=== PATIENT | female | born 1935 | race Caucasian/White ===

== ENCOUNTER 2016-07-29 10:16 | Observation (INO) ==
--- NOTE | 2016-07-29 11:04 | Emergency Department Note ---
Disposition Clinical Impression: Hypothermia Qualifiers: Encounter type: initial encounter Qualified Code(s): T68.XXXA - Hypothermia, initial encounter Altered mental status Qualifiers: Altered mental status type: disorientation Qualified Code(s): R41.0 - Disorientation, unspecified Disposition: Admitted As Inpatient Condition: Fair Time of Disposition: 13:30 Altered Mental Status HPI - General Chief Complaint: ED Altered Mental Status Stated Complaint: "UTI" Time Seen by Provider: 07/29/16 10:55 Source: patient Limitations: no limitations Nursing Notes Reviewed: Yes Vital Signs Reviewed: Yes - History of Present Illness HPI Narrative: Patient presents to the emergency department with chief complaint of altered mental status. She is accompanied by her niece. Patient states the symptoms started yesterday. She was seeing spots. She also saw Cowboys her bedroom last night. He states witnesses happen in the past she has had urinary tract infections. Patient lives by herself. She denies fever. She denies cough or congestion. She denies any recent head trauma. - Related Data Home Medications Medication Instructions Recorded Confirmed Aspirin 81 mg PO DAILY 02/05/15 06/11/16 Hydrochlorothiazide 12.5 mg PO DAILY 02/05/15 06/11/16 Lisinopril [Zestril] 10 mg PO DAILY 02/05/15 06/11/16 Multivitamin [Flintstones] 1 tab PO DAILY 02/05/15 06/11/16 [place] Oil/[place]-3 Fatty Acids 1 cap PO DAILY 02/05/15 06/11/16 [Fish Oil 500 mg Softgel] Previous Rx's Medication Instructions Recorded Acetaminophen [Tylenol] 650 mg PO Q6HR PRN #0 tablet 09/01/15 Docusate [Colace] 100 mg PO BID PRN #0 capsule 09/01/15 Haloperidol Lactate [Haldol] 5 mg IM Q6HR PRN #15 vial 06/11/16 LORazepam [Ativan] 0.5 mg PO BID #14 tablet 06/11/16 Lactose-Reduced Food [Ensure Plus] 1 bottle PO TID #90 can 06/11/16 Quetiapine Fumarate [Seroquel] 25 mg PO HS #30 tablet 06/11/16 Allergies Allergy/AdvReac Type Severity Reaction Status Date / Time No Known Allergies Allergy Verified 07/29/16 10:22 All systems ED: reviewed and negative except as stated. Constitutional: Denies: fever, chills Cardiovascular: Denies: chest pain Respiratory: Denies: dyspnea Gastrointestinal: Denies: abdominal pain, vomiting, diarrhea Neurological: Denies: headache, weakness Past Medical History - Past Medical History Attestation: Yes The following information was validated with the patient. Source: patient, obtained from family Medical history: Reports: arthritis, DVT, hyperlipidemia, hypertension, other Surgical history: Reports: knee replacement Psychiatric history: Reports: other - Social History Smoking Status: Never smoker Smokeless Tobacco Status: No Alcohol use: Reports: none Drug use: Reports: none Physical Exam Patient awake and alert laying in bed in no acute distress. - General Limitations: no limitations General appearance: alert, in no apparent distress - Head Head exam: atraumatic, normocephalic - Eye Eye exam: Present: normal appearance, PERRL, EOMI - ENT ENT exam: normal exam, normal oropharynx - Neck Neck exam: Present: normal inspection, full ROM - Chest Chest inspection: Present: normal inspection - Respiratory Respiratory exam: Present: normal lung sounds bilaterally - Cardiovascular Cardiovascular exam: Present: regular rate, normal rhythm - Abdominal Exam Abdominal exam: Present: soft, Non-Tender - Neurological Exam Neurological exam: Present: alert, oriented X3, CN II-XII intact - Psychiatric Psychiatric exam: Present: normal affect, normal mood - Skin Skin exam: Present: warm, dry, intact Course Course Narrative: Patient in no distress. Altered mental status/sepsis workup. - Reevaluation(s) Reevaluation #1: Nurses notified me of rectal temperature 90.3. Placing Claire hugger. Time: 11:31 - Consultations Consultation #1: Dr Balbuena accepts Time: 13:29 Vital Signs Temperature 96.6 F L 07/29/16 10:18 Pulse Rate 75 07/29/16 10:18 Respiratory Rate 07/29/16 10:18 Blood Pressure 151/84 07/29/16 10:18 O2 Sat by Pulse Oximetry 100 07/29/16 10:18 Temperature 93.0 F L 07/29/16 12:52 Pulse Rate 68 07/29/16 12:52 Respiratory Rate 07/29/16 10:18 Blood Pressure 148/74 07/29/16 12:52 O2 Sat by Pulse Oximetry 94 L 07/29/16 12:52 Oxygen Delivery Oxygen Delivery Room Air Altered Mental Status - Lab Data Result diagrams: 07/29/16 11:44 07/29/16 11:44 Lab Results 07/29/16 07/29/16 07/29/16 Range/Units 11:00 11:30 11:44 WBC 4.2 L (4.3-11.1) K/mcL RBC 4.11 (3.82-4.97) M/mcL Hgb 11.7 (11.5-15.4) g/dL Hct 37.2 (35.3-44.9) % MCV 90.5 (83.0-100.0) fL MCH 28.5 (28.0-33.3) pg MCHC 31.5 L (31.6-35.5) g/dL RDW 15.1 H (11.5-14.5) % Plt Count 277 (140-400) K/mcL MPV 9.1 L (9.4-12.4) fL Immature Gran % 0.2 (0-4) % Seg Neutrophils % 64.7 % Lymphocytes % 23.6 % Monocytes % 8.4 % Eosinophils % 2.6 % Basophils % 0.5 % Neutrophils # 2.7 (1.6-8.9) K/mcL Lymphocytes # 1.0 (0.6-4.6) K/mcL Monocytes # 0.4 (0.0-1.3) K/mcL Eosinophils # 0.1 (0.0-0.6) K/mcL Basophils # 0.0 (0.0-0.2) K/mcL PT (9.4-12.1) Seconds INR APTT (26.0-36.0) Seconds ABG pH 7.40 (7.32-7.45) pH Units ABG pCO2 47 H (35-45) mmHg ABG pO2 92 (85-104) mmHg ABG HCO3 29.1 H (21-27) mEQ/L ABG Total CO2 30.5 H (20-26) mEq/L ABG O2 Saturation 97 (95-98) % ABG Base Excess 3.6 H (-2.0 to 3.0) mEq/L Blood Gas Modality RA Inspired O2 21 % Sodium (136-145) mEq/L Potassium (3.5-4.5) mEq/L Chloride (98-109) mEq/L Carbon Dioxide (19-29) mEq/L BUN (7-20) mg/dL Creatinine (0.57-1.11) mg/dL Est GFR ( Amer) (> 60) Est GFR (Non-Af Amer) (> 60) BUN/Creatinine Ratio (6-26) Glucose (70-99) mg/dL Calculated Osmolality (280-300) Lactic Acid (0.5-2.2) mmol/L Calcium (8.6-10.8) mg/dL Phosphorus (2.3-4.7) mg/dL Magnesium (1.6-2.6) mg/dL Total Bilirubin (0.2-1.2) mg/dL Direct Bilirubin (0.0-0.5) mg/dL Indirect Bilirubin (0.0-1.2) mg/dL AST (5-34) Units/L ALT (0-55) Units/L Alkaline Phosphatase (38-126) Units/L Troponin I (0-0.03) ng/mL Serum Total Protein (6.0-8.3) g/dL Albumin (3.5-5.0) g/dL Globulin (2.4-3.5) g/dL Albumin/Globulin Ratio (1.1-2.2) Urine Color Yellow (Yellow) Urine Clarity Cloudy A (Clear) Urine pH 7.0 (5.0-8.0) pH Units Ur Specific [place] 1.019 (1.010-1.025) Urine Protein Negative (Neg-Trace) mg/dL Urine Glucose (UA) Normal (Normal) mg/dL Urine Ketones Negative (Negative) mg/dL Urine Blood Negative (Negative) Urine Nitrite Negative (Negative) Urine Bilirubin Negative (Negative) Urine Urobilinogen Normal (Normal) mg/dL Ur Leukocyte Esterase Negative (Negative) Urine Microscopic RBC 0-3 (0-3) per hpf Urine Microscopic WBC 0-3 (0-3) per hpf Ur Squamous Epith Cells Many H (None-Few) per lpf Ur Renal Epithelial Cell Few (None-Few) per hpf Urine Bacteria Few (None-Few) per hpf Hyaline Casts None Seen (None-Few) per lpf Ur Culture Indicated? NO (NO) 07/29/16 07/29/16 07/29/16 Range/Units 11:44 11:44 11:44 WBC (4.3-11.1) K/mcL RBC (3.82-4.97) M/mcL Hgb (11.5-15.4) g/dL Hct (35.3-44.9) % MCV (83.0-100.0) fL MCH (28.0-33.3) pg MCHC (31.6-35.5) g/dL RDW (11.5-14.5) % Plt Count (140-400) K/mcL MPV (9.4-12.4) fL Immature Gran % (0-4) % Seg Neutrophils % % Lymphocytes % % Monocytes % % Eosinophils % % Basophils % % Neutrophils # (1.6-8.9) K/mcL Lymphocytes # (0.6-4.6) K/mcL Monocytes # (0.0-1.3) K/mcL Eosinophils # (0.0-0.6) K/mcL Basophils # (0.0-0.2) K/mcL PT 11.4 (9.4-12.1) Seconds INR 1.1 APTT 30.9 (26.0-36.0) Seconds ABG pH (7.32-7.45) pH Units ABG pCO2 (35-45) mmHg ABG pO2 (85-104) mmHg ABG HCO3 (21-27) mEQ/L ABG Total CO2 (20-26) mEq/L ABG O2 Saturation (95-98) % ABG Base Excess (-2.0 to 3.0) mEq/L Blood Gas Modality Inspired O2 % Sodium 140 (136-145) mEq/L Potassium 4.2 (3.5-4.5) mEq/L Chloride 108 (98-109) mEq/L Carbon Dioxide 23 (19-29) mEq/L BUN 18 (7-20) mg/dL Creatinine 0.61 (0.57-1.11) mg/dL Est GFR ( Amer) > 60 (> 60) Est GFR (Non-Af Amer) > 60 (> 60) BUN/Creatinine Ratio 30 H (6-26) Glucose 96 (70-99) mg/dL Calculated Osmolality 292 (280-300) Lactic Acid 0.8 (0.5-2.2) mmol/L Calcium 10.0 (8.6-10.8) mg/dL Phosphorus 2.5 (2.3-4.7) mg/dL Magnesium 1.8 (1.6-2.6) mg/dL Total Bilirubin 0.3 (0.2-1.2) mg/dL Direct Bilirubin 0.1 (0.0-0.5) mg/dL Indirect Bilirubin 0.2 (0.0-1.2) mg/dL AST 41 H (5-34) Units/L ALT 40 (0-55) Units/L Alkaline Phosphatase 130 H (38-126) Units/L Troponin I (0-0.03) ng/mL Serum Total Protein 7.2 (6.0-8.3) g/dL Albumin 3.6 (3.5-5.0) g/dL Globulin 3.6 H (2.4-3.5) g/dL Albumin/Globulin Ratio 1.0 L (1.1-2.2) Urine Color (Yellow) Urine Clarity (Clear) Urine pH (5.0-8.0) pH Units Ur Specific [place] (1.010-1.025) Urine Protein (Neg-Trace) mg/dL Urine Glucose (UA) (Normal) mg/dL Urine Ketones (Negative) mg/dL Urine Blood (Negative) Urine Nitrite (Negative) Urine Bilirubin (Negative) Urine Urobilinogen (Normal) mg/dL Ur Leukocyte Esterase (Negative) Urine Microscopic RBC (0-3) per hpf Urine Microscopic WBC (0-3) per hpf Ur Squamous Epith Cells (None-Few) per lpf Ur Renal Epithelial Cell (None-Few) per hpf Urine Bacteria (None-Few) per hpf Hyaline Casts (None-Few) per lpf Ur Culture Indicated? (NO) 07/29/16 Range/Units 11:44 WBC (4.3-11.1) K/mcL RBC (3.82-4.97) M/mcL Hgb (11.5-15.4) g/dL Hct (35.3-44.9) % MCV (83.0-100.0) fL MCH (28.0-33.3) pg MCHC (31.6-35.5) g/dL RDW (11.5-14.5) % Plt Count (140-400) K/mcL MPV (9.4-12.4) fL Immature Gran % (0-4) % Seg Neutrophils % % Lymphocytes % % Monocytes % % Eosinophils % % Basophils % % Neutrophils # (1.6-8.9) K/mcL Lymphocytes # (0.6-4.6) K/mcL Monocytes # (0.0-1.3) K/mcL Eosinophils # (0.0-0.6) K/mcL Basophils # (0.0-0.2) K/mcL PT (9.4-12.1) Seconds INR APTT (26.0-36.0) Seconds ABG pH (7.32-7.45) pH Units ABG pCO2 (35-45) mmHg ABG pO2 (85-104) mmHg ABG HCO3 (21-27) mEQ/L ABG Total CO2 (20-26) mEq/L ABG O2 Saturation (95-98) % ABG Base Excess (-2.0 to 3.0) mEq/L Blood Gas Modality Inspired O2 % Sodium (136-145) mEq/L Potassium (3.5-4.5) mEq/L Chloride (98-109) mEq/L Carbon Dioxide (19-29) mEq/L BUN (7-20) mg/dL Creatinine (0.57-1.11) mg/dL Est GFR ( Amer) (> 60) Est GFR (Non-Af Amer) (> 60) BUN/Creatinine Ratio (6-26) Glucose (70-99) mg/dL Calculated Osmolality (280-300) Lactic Acid (0.5-2.2) mmol/L Calcium (8.6-10.8) mg/dL Phosphorus (2.3-4.7) mg/dL Magnesium (1.6-2.6) mg/dL Total Bilirubin (0.2-1.2) mg/dL Direct Bilirubin (0.0-0.5) mg/dL Indirect Bilirubin (0.0-1.2) mg/dL AST (5-34) Units/L ALT (0-55) Units/L Alkaline Phosphatase (38-126) Units/L Troponin I 0.00 (0-0.03) ng/mL Serum Total Protein (6.0-8.3) g/dL Albumin (3.5-5.0) g/dL Globulin (2.4-3.5) g/dL Albumin/Globulin Ratio (1.1-2.2) Urine Color (Yellow) Urine Clarity (Clear) Urine pH (5.0-8.0) pH Units Ur Specific [place] (1.010-1.025) Urine Protein (Neg-Trace) mg/dL Urine Glucose (UA) (Normal) mg/dL Urine Ketones (Negative) mg/dL Urine Blood (Negative) Urine Nitrite (Negative) Urine Bilirubin (Negative) Urine Urobilinogen (Normal) mg/dL Ur Leukocyte Esterase (Negative) Urine Microscopic RBC (0-3) per hpf Urine Microscopic WBC (0-3) per hpf Ur Squamous Epith Cells (None-Few) per lpf Ur Renal Epithelial Cell (None-Few) per hpf Urine Bacteria (None-Few) per hpf Hyaline Casts (None-Few) per lpf Ur Culture Indicated? (NO) - EKG Data EKG attestation: Yes I reviewed and interpreted this EKG. EKG results narrative: Normal sinus rhythm at 64. Left axis deviation. LVH criteria. Poor R-wave progression. Unchanged from EKG 06/10/2016 EKG shows normal: sinus rhythm TPA Checklist - LKW: 3-4.5 hrs Add. Contraindications Patient/family understanding: The patient/family members have been counseled and understood the risk, benefit , and alternatives of treatment. Critical Care Time Critical Care Time: Yes Total Critical Care Time: 35 Attestation: Critical care performed: Time is exclusive of separately billable procedures. Time includes: direct patient care, patient reassessment, coordination of patient care, interpretation of data (laboratory data, radiology data, and respiratory data), review of patient's medical records, medical consultation and documentation of patient care. Procedures included in critical care time: Procedures excluded from critical care time:
[2016-07-29 11:11] LABS: Bilirubin,Urine Negative (Negative); Blood,Urine Negative (Negative); Clarity,Urine Cloudy (Clear); Color,Urine Yellow (Yellow); Glucose,Urine (UA) Normal (Normal); Ketones,Urine Negative (Negative); Leukocyte Esterase,Urine Negative (Negative); Nitrite,Urine Negative (Negative); Protein,Urine Negative (Neg-Trace); Specific Gravity,Urine 1.019 (1.010-1.025); Urobilinogen,Urine Normal (Normal)
[2016-07-29 11:13] LABS: Hyaline Casts,Urine None Seen per lpf (None-Few); RBC,Urine 0-3 per hpf (0-3); Squamous Epithelial Cell,Urine Many per lpf (None-Few); WBC,Urine 0-3 per hpf (0-3)
[2016-07-29 11:21] LABS: Bacteria,Urine Few per hpf (None-Few); Renal Epithelial Cells,Urine Few per hpf (None-Few)
[2016-07-29 11:44] LABS: ABG Base Excess 3.6 mEq/L (-2.0 to 3.0); ABG HCO3 29.1 mEQ/L (21-27); ABG Oxygen Saturation 97 % (95-98); ABG PCO2 47 mmHg (35-45); ABG PO2 92 mmHg (85-104); ABG TCO2 30.5 mEq/L (20-26); Blood Gas FiO2 21 %
[2016-07-29 11:54] LABS: Basophils % 0.5 %; Eosinophils # 0.1 K/mcL (0.0-0.6); Eosinophils % 2.6 %; Hematocrit 37.2 % (35.3-44.9); Hemoglobin 11.7 g/dL (11.5-15.4); Immature Granulocytes % 0.2 % (0-4); Lymphocytes % 23.6 %; Mean Corpuscular HGB Conc 31.5 g/dL (31.6-35.5); Mean Corpuscular Hemoglobin 28.5 pg (28.0-33.3); Mean Corpuscular Volume 90.5 fL (83.0-100.0); Mean Platelet Volume 9.1 fL (9.4-12.4); Monocytes # 0.4 K/mcL (0.0-1.3); Monocytes % 8.4 %; Neutrophils # 2.7 K/mcL (1.6-8.9); Platelet Count 277 K/mcL (140-400); Red Blood Count 4.11 M/mcL (3.82-4.97); Red Cell Distribution Width 15.1 % (11.5-14.5); Segmented Neutrophils % 64.7 %
[2016-07-29 11:59] LABS: INR 1.1; Prothrombin Time 11.4 Seconds (9.4-12.1)
[2016-07-29 12:02] LABS: Activated Partial Thrombo Time 30.9 Seconds (26.0-36.0)
[2016-07-29 12:08] LABS: Alanine Aminotransferase 40 Units/L (0-55); Albumin 3.6 g/dL (3.5-5.0); Alkaline Phosphatase 130 Units/L (38-126); Aspartate Amino Transferase 41 Units/L (5-34); BUN/Creatinine Ratio 30 (6-26); Bilirubin,Direct 0.1 mg/dL (0.0-0.5); Bilirubin,Indirect 0.2 mg/dL (0.0-1.2); Bilirubin,Total 0.3 mg/dL (0.2-1.2); Blood Urea Nitrogen 18 mg/dL (7-20); Carbon Dioxide 23 mEq/L (19-29); Chloride 108 mEq/L (98-109); Globulin 3.6 g/dL (2.4-3.5); Glucose 96 mg/dL (70-99); Magnesium 1.8 mg/dL (1.6-2.6); Osmolality,Calculated 292 (280-300); Phosphorous 2.5 mg/dL (2.3-4.7); Potassium 4.2 mEq/L (3.5-4.5); Sodium 140 mEq/L (136-145); Total Protein 7.2 g/dL (6.0-8.3); eGFR For African Americans > 60 (> 60); eGFR For Non-African Americans > 60 (> 60)
[2016-07-29] MEDS ORDERED: Acetaminophen 325 MG TABLET PO PRN (15:13)
--- NOTE | 2016-07-29 15:47 | Internal Med History&Physical ---
Date of Encounter: 07/29/16 Time of Encounter: 15:00 Assessment and Plan (1) Hypothermia Current visit: Yes Status: Acute 1 suspect this is related to environmental factors. Patient has had history of recent confusion unsure of exposure. Do not think this is related to septic process do not see a source of infection white count 4.2 other vital signs are stable. 2 continue with bear hugger to maintain temperature greater than 97. Qualifiers: Encounter type: initial encounter Qualified Code(s): T68.XXXA - Hypothermia , initial encounter (2) Acute encephalopathy Current visit: No Status: Resolved 1. Appears the patient is back to baseline-she is alert oriented able to follow directions however at times she does make inappropriate comments. CT of head was negative Suspect this is related to underlying dementia-at this time no infectious process identified blood cultures have been obtained. Patient is a high risk for falls We will place on fall precautions-Will obtain tox screen, TSH cortisol level rule out any other metabolic possibilities 2 we will consult psychiatry at present time patient is not on any medications for dementia (3) Hypertension Current visit: No Status: Chronic 1 presently controlled with continue with lisinopril and maintain systolic blood pressure less than 140 Qualifiers: Hypertension type: essential hypertension Qualified Code(s): I10 - Essential (primary) hypertension (4) DVT prophylaxis Current visit: No Status: Acute 1 ARLEN min-encourage early ambulation Internal Medicine - H&P: HPI Chief complaint: confusion Admitted From: Emergency Dept Plans for Post Hospital Care: Home History of present illness: Ms. Humphrey is a 80 year old female past medical history of hypertension. Patient does have past history of delirium and was admitted to this facility in May due to delirium. At that time there was no infectious process found, she was seen by psychiatry was placed on Seroquel and she went to an F for further treatment. Unsure of when the patient was discharged to home, however she does live independently and has family members check up on her. According to the patient she awoke this morning and saw Cowboys in her room. She got dressed and called her niece who is her power of securities attorney. According to family friend at bedside, the niece arrived the patient was confused and she became concerned that patient might have a urinary tract infection and brought her to the ER for evaluation. According to ER notes upon arrival patient was hypothermic with temperature of 93. Bear hugger was placed on the patient and her temperature jed to 96 6. Her lab work was unremarkable, urine was negative for UTI chest x-ray with no acute process CT of head with no acute intracranial abnormalities. She was admitted for further workup and evaluation. Presently patient is alert and oriented 3 she does follow simple commands. At times during conversation the patient would make inappropriate comments or talked about irrelevant topics. She did have some difficulty recalling remote history and did confirm that she does have memory problems. She denies any fevers chills cough chest pain shortness of breath recent, falls or head injuries. The patient's temperature is 94 orally, rest of her vital signs are stable we will continue with bear hugger. I reviewed this case with who agrees with plan. Past Med Surg Social Fam HX - Past Medical History Medical history: arthritis, DVT, hyperlipidemia, hypertension, other Psychiatric history: other - Past Surgical History Surgical History: knee replacement - Social History Smoking Status: Never smoker Smokeless Tobacco Status: No Alcohol use: none Drug use: none - Family History Father Adopted: No Living Status: Age at : 77 Cause of : heart attack Hx Family Cardiac Disorders: Yes Hx Family Respiratory Disorders: No Hx Family Cancer: No Hx Family GI Disorders: No Hx Family Endocrine Disorder: No Hx Family Neuromuscular Disorders: No Hx Family Neurologic Disorders: No Hx Family HEENT Disorders: No Hx Family Autoimmune Disorders: No Mother Adopted: No Living Status: Hx Family Cardiac Disorders: Yes Hx Family Respiratory Disorders: No Hx Family Cancer: Yes Hx Family GI Disorders: No Hx Family Endocrine Disorder: Yes Hx Family Neuromuscular Disorders: No Hx Family Neurologic Disorders: No Hx Family HEENT Disorders: No Hx Family Autoimmune Disorders: No Internal Medicine - H&P: Meds Lisinopril [Zestril] 10 mg PO DAILY 02/05/15 [History] Allergies No Known Allergies Allergy (Verified 07/29/16 10:22) All Systems PM: A 10-system review of systems was performed and is negative for pertinent findings except as documented above in the HPI. - Constitutional Constitutional: falls - EENT Eyes: no change in vision, no discharge, no pain, no photophobia - Cardiovascular Cardiovascular ROS IM: no chest pain, no diaphoresis, no dyspnea, no lightheadedness, no palpitations, no syncope - Respiratory Respiratory: no cough, no dyspnea, no wheezing, no excessive phlegm production - Gastrointestinal Gastrointestinal: no abdominal pain, no diarrhea, no hematemesis, no hematochezia, no melena, no nausea, no vomiting - Genitourinary Genitourinary: no change in urinary stream, no dysuria, no flank pain, no hematuria - Musculoskeletal Musculoskeletal ROS IM: no numbness, no tingling - Integumentary Integumentary IM: no rash, no unusual bruising - Neurological Neurological ROS: confusion, frequent falls - Constitutional Vitals: Temp Pulse Resp BP Pulse Ox 94.6 F L 75 12 136/74 96 07/29/16 14:42 07/29/16 14:42 07/29/16 14:42 07/29/16 14:42 07/29/16 14:42 General appearance: Present: A&O X 3 Exam: Makes inappropriate statements at times, does follow simple commands - Head Head exam: Present: atraumatic, normocephalic - Eye Eye exam: Present: PERRL, conjuntiva pink, sclera anicteric Pupils: Present: PERRL - Neck Neck exam general surgery: Present: supple, trachea midline. Absent: lymphadenopathy - Respiratory Respiratory exam: Present: CTAB. Absent: accessory muscle use, rales, rhonchi, wheezes - Cardiovascular Cardiovascular exam: Present: RRR, +S1, +S2. Absent: diastolic murmur, gallop, rubs, systolic murmur - GI/Abdominal GI/Abdominal exam: Present: normal bowel sounds, soft, no peritoneal signs. Absent: distended, tenderness - Extremities Exam Extremities exam: Present: pedal edema, warm, radial pulses palpable and symetrical. Absent: calf tenderness, cyanotic Additional comments: +2 pitting edema bilat. extremities pink, warm x4 - Neurological Exam Neurological exam: Present: CN II-XII intact, oriented X3, no focal deficits. Absent: pronater drift, facial droop, speech deficit - Skin Skin exam: Present: dry, intact Internal Med - H&P Results - Labs CBC & Chem 7: 07/29/16 11:44 07/29/16 11:44 - ABG Interpretation ABG results: PH 7.4 PCO2 47 PO2 92 bicarbonate 29.1 and O2 sat 97% - Diagnostic Studies Chest x-ray Additional comments: Chest x-ray no acute process per radiology reading CT scan - head Additional comments: CT of head no acute intracranial abnormalities mid to moderate parenchymal volume loss mild to moderate chronic microvascular disease
--- NOTE | 2016-07-29 19:50 | Electrocardiograph Report ---
[facility] Test Date: 2016-07-29 Pat Name: Leni Humphrey Department: 105 Room: 3A12 Gender: F Vat Packer: : [id number] Requested By: Charity See Order Number: [id number] Reading MD: Beau Maldonado DO Measurements Intervals [place] Rate: 64 P: 61 W[place]: 194 QRS: -12 QRSD: 95 T: 49 QT: 442 QTc: 451 Interpretive Statements SINUS RHYTHM VOLTAGE CRITERIA FOR LVH [MEETS CRITERIA IN ONE OF: R(aVL), S(V1), R(V5), R(V5/V6) +S(V1)] POSSIBLE ANTERIOR MYOCARDIAL INFARCTION [30 ms Q WAVE IN V3/V4, OR R < 0.2 mV IN V4], OF INDETERMINATE AGE Electronically Signed On 07-29-2016 19:49:21 EST by Beau Maldonado DO
[2016-07-30 04:28] LABS: Amphetamine Screen,Urine Negative ng/mL (Cutoff=1000); Barbiturate Screen,Urine Negative ng/mL (Cutoff=200); Benzodiazepines Screen,Urine Negative ng/mL (Cutoff=200); Cannabinoid Screen,Urine Negative ng/mL (Cutoff = 50); Cocaine Screen,Urine Negative ng/mL (Cutoff= 300); Opiate Screen,Urine Negative ng/mL (Cutoff=300); Phencyclidine Screen,Urine Negative ng/mL (Cutoff=25)
[2016-07-30] MEDS ORDERED: Cosyntropin 250 MCG/2 ML VIAL IVP ONE (06:00)
[2016-07-30 06:29] LABS: Hematocrit 32.5 % (35.3-44.9); Hemoglobin 10.4 g/dL (11.5-15.4); Immature Granulocytes % 0.2 % (0-4); Lymphocytes % 20.2 %; Mean Corpuscular Hemoglobin 29.2 pg (28.0-33.3); Mean Corpuscular Volume 91.3 fL (83.0-100.0); Mean Platelet Volume 9.2 fL (9.4-12.4); Monocytes % 7.9 %; Platelet Count 285 K/mcL (140-400); Red Blood Count 3.56 M/mcL (3.82-4.97); Red Cell Distribution Width 15.5 % (11.5-14.5); Segmented Neutrophils % 69.9 %
[2016-07-30 06:30] LABS: Basophils % 0.4 %; Eosinophils # 0.1 K/mcL (0.0-0.6); Eosinophils % 1.4 %; Monocytes # 0.4 K/mcL (0.0-1.3); Neutrophils # 3.5 K/mcL (1.6-8.9)
[2016-07-30 06:42] LABS: BUN/Creatinine Ratio 30 (6-26); Blood Urea Nitrogen 19 mg/dL (7-20); Calcium 9.4 mg/dL (8.6-10.8); Carbon Dioxide 24 mEq/L (19-29); Chloride 109 mEq/L (98-109); Glucose 90 mg/dL (70-99); Osmolality,Calculated 292 (280-300); Potassium 4.2 mEq/L (3.5-4.5); Sodium 140 mEq/L (136-145); eGFR For African Americans > 60 (> 60); eGFR For Non-African Americans > 60 (> 60)
--- NOTE | 2016-07-30 12:34 | Internal Med Progress Note ---
Date of Encounter: 07/30/16 Time of Encounter: 12:33 - Assessment and plan (1) Acute encephalopathy Current Visit: No Status: Resolved Assessment and plan: Resolved at this time Oh eating psych eval to rule out any psychiatric illness given patient's hallucinations from the previous day Will obtain physical therapy eval as patient lives at home alone and has been requiring assistance in the hospital to get to the bathroom. (2) Hypothermia Current Visit: Yes Status: Resolved Assessment and plan: Of unclear etiology Resolved at this time We will continue to monitor Qualifiers: Encounter type: initial encounter Qualified Code(s): T68.XXXA - Hypothermia , initial encounter (3) DVT prophylaxis Current Visit: No Status: Acute Assessment and plan: Heparin subcutaneous (4) Hypertension Current Visit: No Status: Chronic Assessment and plan: BP within acceptable range continue home medications Qualifiers: Hypertension type: essential hypertension Qualified Code(s): I10 - Essential (primary) hypertension - Subjective Interval history: Patient seen and examined at bedside. Resting comfortably in bed and states she feels better at this time and has no complaints. She states yesterday she was seeing things that were not there and apparently during the week she had a UTI which she self treated with cranberry juice. She denies any urinary symptoms, any increased frequency, dysuria, fever or chills. She is alert and oriented to place and self however does not know the year. She said she is usually not oriented to time and year. She reports of living alone. - Constitutional Vitals: Temp Pulse Resp BP Pulse Ox 98.0 F 81 14 106/63 98 07/30/16 11:38 07/30/16 11:38 07/30/16 11:38 07/30/16 11:38 07/30/16 11:38 General appearance: Present: A&O X 2, no acute distress, answers questions appropriately - Head Head exam: Present: atraumatic, normocephalic - Eye Eye exam: Present: normal appearance, conjuntiva pink, sclera anicteric - Respiratory Respiratory exam: Present: CTAB. Absent: respiratory distress, wheezes - Cardiovascular Cardiovascular exam: Present: RRR, +S1, +S2 - GI/Abdominal GI/Abdominal exam: Present: normal bowel sounds, soft. Absent: distended, tenderness - Extremities Exam Extremities exam: Present: pedal edema, warm, radial pulses palpable and symetrical - Neurological Exam Neurological exam: Present: alert - Psychiatric Psychiatric exam: Present: normal affect, normal mood Internal Medicine: Result - Labs CBC & Chem 7: 07/30/16 06:07 07/30/16 06:07 Labs: Short CBC 07/30/16 Range/Units 06:07 WBC 5.0 (4.3-11.1) K/mcL Hgb 10.4 L (11.5-15.4) g/dL Hct 32.5 L (35.3-44.9) % Plt Count 285 (140-400) K/mcL Neutrophils # 3.5 (1.6-8.9) K/mcL BMP 07/30/16 06:07 Sodium 140 Potassium 4.2 Chloride 109 Carbon Dioxide 24 BUN 19 Creatinine 0.64 Glucose 90 Calcium 9.4 - ABG Interpretation ABG results: ABG ABG pH 7.40 pH Units (7.32-7.45) 07/29/16 11:30 ABG pCO2 47 mmHg (35-45) H 07/29/16 11:30 ABG pO2 92 mmHg (85-104) 07/29/16 11:30 ABG O2 Saturation 97 % (95-98) 07/29/16 11:30 PT/INR, D-dimer PT 11.4 Seconds (9.4-12.1) 07/29/16 11:44 Consult Discharge Plan - Plan Referrals: Katharine Sarabia MD [Primary Care Provider] -
--- NOTE | 2016-07-30 17:02 | Consult Note ---
Date of Encounter: 07/31/16 Time of Encounter: 15:30 Assessment & Recommendation (1) Delirium due to general medical condition Current visit: Yes Status: Acute Assessment & Recommendation: Patient seen and interviewed. Her mental status exam this was in normal limits there was no evidence of any hallucinations or delusions. Nursing staff reported that she is clear and alert. Her mental status change most likely due to medical condition and possibly urinary tract infection that is clear. From psychiatric standpoint she is clear and normal. Recommendation. Thank you for consultation. History of Present Illness Patient: new to practice Requesting Physician: Heidy Elena MD Reason for consult: Hallucinations History of present illness: Ms. Humphrey is a 80 year old female with history of delirium and dementia. Psychiatric consultation requested to evaluate hallucinations. Nursing staff report patient's mental status cleared and she is not experiencing any confusion or hallucinations. 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 CC: Heidy Elena MD Past Med Surg Social Fam HX - Past Medical History Medical history: arthritis, DVT, hyperlipidemia, hypertension, other - Past Surgical History Surgical History: knee replacement - Social History Smoking Status: Never smoker Smokeless Tobacco Status: No Alcohol use: none Drug use: none - Family History Father Adopted: No Living Status: Age at : 78 Cause of : heart attack Hx Family Cardiac Disorders: Yes Hx Family Respiratory Disorders: No Hx Family Cancer: No Hx Family GI Disorders: No Hx Family Endocrine Disorder: No Hx Family Neuromuscular Disorders: No Hx Family Neurologic Disorders: No Hx Family HEENT Disorders: No Hx Family Autoimmune Disorders: No Mother Adopted: No Living Status: Hx Family Cardiac Disorders: Yes Hx Family Respiratory Disorders: No Hx Family Cancer: Yes Hx Family GI Disorders: No Hx Family Endocrine Disorder: Yes Hx Family Neuromuscular Disorders: No Hx Family Neurologic Disorders: No Hx Family HEENT Disorders: No Hx Family Autoimmune Disorders: No Medications & Allergies Lisinopril [Zestril] 10 mg PO DAILY 02/05/15 [History] Allergies No Known Allergies Allergy (Verified 07/29/16 10:22) Mental Status Exam Patient orientation: Yes Person, Yes Time, Yes Place Level of alertness: Alert Patient appearance: Appropriate, Well Groomed Behavior: calm, cooperative Psychomotor activity: Normal Eye contact: Maintains Eye Contact Mood description: Euthymic/stable Affect description: congruent with mood, full range Speech pattern: Normal rate, Normal rhythm, Normal tone Speech volume: Normal Thought process: Linear, Goal Oriented Thought content: No Suicidal ideation, No Homicidal ideation, No Overt delusions Perceptual disturbances: No Auditory hallucinations, No Visual hallucinations Attention span: Capable of Focused Attention Memory description: Grossly Intact Patient reliability: Reliable Historian Intelligence estimate: Average Judgment: Limited Insight: Partial Results - Vital Signs Vital signs: Temp Pulse Resp BP Pulse Ox 97.7 F 81 14 101/65 96 07/30/16 15:16 07/30/16 15:16 07/30/16 15:16 07/30/16 15:16 07/30/16 15:16 - Drug Levels and Toxicology Drug Levels and Toxicology: Drug Levels and Toxicity 07/30/16 04:07 Urine Opiates Screen Negative Ur Barbiturates Screen Negative Ur Phencyclidine Scrn Negative Ur Amphetamines Screen Negative U Benzodiazepines Scrn Negative Urine Cocaine Screen Negative U Marijuana (THC) Screen Negative - Labs Labs: Laboratory Last Values WBC 5.0 K/mcL (4.3-11.1) 07/30/16 06:07 RBC 3.56 M/mcL (3.82-4.97) L 07/30/16 06:07 Hgb 10.4 g/dL (11.5-15.4) L 07/30/16 06:07 Hct 32.5 % (35.3-44.9) L 07/30/16 06:07 MCV 91.3 fL (83.0-100.0) 07/30/16 06:07 MCH 29.2 pg (28.0-33.3) 07/30/16 06:07 MCHC 32.0 g/dL (31.6-35.5) 07/30/16 06:07 RDW 15.5 % (11.5-14.5) H 07/30/16 06:07 Plt Count 285 K/mcL (140-400) 07/30/16 06:07 MPV 9.2 fL (9.4-12.4) L 07/30/16 06:07 Immature Gran % 0.2 % (0-4) 07/30/16 06:07 Seg Neutrophils % 69.9 % 07/30/16 06:07 Lymphocytes % 20.2 % 07/30/16 06:07 Monocytes % 7.9 % 07/30/16 06:07 Eosinophils % 1.4 % 07/30/16 06:07 Basophils % 0.4 % 07/30/16 06:07 Neutrophils # 3.5 K/mcL (1.6-8.9) 07/30/16 06:07 Lymphocytes # 1.0 K/mcL (0.6-4.6) 07/30/16 06:07 Monocytes # 0.4 K/mcL (0.0-1.3) 07/30/16 06:07 Eosinophils # 0.1 K/mcL (0.0-0.6) 07/30/16 06:07 Basophils # 0.0 K/mcL (0.0-0.2) 07/30/16 06:07 Immature Plt Fraction 2.0 % (1.1-6.1) 07/30/16 06:07 PT 11.4 Seconds (9.4-12.1) 07/29/16 11:44 INR 1.1 07/29/16 11:44 APTT 30.9 Seconds (26.0-36.0) 07/29/16 11:44 ABG pH 7.40 pH Units (7.32-7.45) 07/29/16 11:30 ABG pCO2 47 mmHg (35-45) H 07/29/16 11:30 ABG pO2 92 mmHg (85-104) 07/29/16 11:30 ABG HCO3 29.1 mEQ/L (21-27) H 07/29/16 11:30 ABG Total CO2 30.5 mEq/L (20-26) H 07/29/16 11:30 ABG O2 Saturation 97 % (95-98) 07/29/16 11:30 ABG Base Excess 3.6 mEq/L (-2.0 to 3.0) H 07/29/16 11:30 Blood Gas Modality RA 07/29/16 11:30 Inspired O2 21 % 07/29/16 11:30 Sodium 140 mEq/L (136-145) 07/30/16 06:07 Potassium 4.2 mEq/L (3.5-4.5) 07/30/16 06:07 Chloride 109 mEq/L (98-109) 07/30/16 06:07 Carbon Dioxide 24 mEq/L (19-29) 07/30/16 06:07 BUN 19 mg/dL (7-20) 07/30/16 06:07 Creatinine 0.64 mg/dL (0.57-1.11) 07/30/16 06:07 Est GFR ( Amer) > 60 (> 60) 07/30/16 06:07 Est GFR (Non-Af Amer) > 60 (> 60) 07/30/16 06:07 BUN/Creatinine Ratio 30 (6-26) H 07/30/16 06:07 Glucose 90 mg/dL (70-99) 07/30/16 06:07 Calculated Osmolality 292 (280-300) 07/30/16 06:07 Lactic Acid 0.7 mmol/L (0.5-2.2) 07/29/16 14:25 Calcium 9.4 mg/dL (8.6-10.8) 07/30/16 06:07 Phosphorus 2.5 mg/dL (2.3-4.7) 07/29/16 11:44 Magnesium 1.8 mg/dL (1.6-2.6) 07/29/16 11:44 Total Bilirubin 0.3 mg/dL (0.2-1.2) 07/29/16 11:44 Direct Bilirubin 0.1 mg/dL (0.0-0.5) 07/29/16 11:44 Indirect Bilirubin 0.2 mg/dL (0.0-1.2) 07/29/16 11:44 AST 41 Units/L (5-34) H 07/29/16 11:44 ALT 40 Units/L (0-55) 07/29/16 11:44 Alkaline Phosphatase 130 Units/L (38-126) H 07/29/16 11:44 Troponin I 0.00 ng/mL (0-0.03) 07/29/16 11:44 C-Reactive Protein 4 mg/L (Less than 5) 07/29/16 14:25 Serum Total Protein 7.2 g/dL (6.0-8.3) 07/29/16 11:44 Albumin 3.6 g/dL (3.5-5.0) 07/29/16 11:44 Globulin 3.6 g/dL (2.4-3.5) H 07/29/16 11:44 Albumin/Globulin Ratio 1.0 (1.1-2.2) L 07/29/16 11:44 TSH 3.081 mcIU/mL (0.350-4.840) 07/29/16 14:25 Random Cortisol Cancelled 07/30/16 06:07 Cortisol Resp to ACTH 07/30/16 06:07 Urine Color Yellow (Yellow) 07/29/16 11:00 Urine Clarity Cloudy (Clear) A 07/29/16 11:00 Urine pH 7.0 pH Units (5.0-8.0) 07/29/16 11:00 Ur Specific [place] 1.019 (1.010-1.025) 07/29/16 11:00 Urine Protein Negative mg/dL (Neg-Trace) 07/29/16 11:00 Urine Glucose (UA) Normal mg/dL (Normal) 07/29/16 11:00 Urine Ketones Negative mg/dL (Negative) 07/29/16 11:00 Urine Blood Negative (Negative) 07/29/16 11:00 Urine Nitrite Negative (Negative) 07/29/16 11:00 Urine Bilirubin Negative (Negative) 07/29/16 11:00 Urine Urobilinogen Normal mg/dL (Normal) 07/29/16 11:00 Ur Leukocyte Esterase Negative (Negative) 07/29/16 11:00 Urine Microscopic RBC 0-3 per hpf (0-3) 07/29/16 11:00 Urine Microscopic WBC 0-3 per hpf (0-3) 07/29/16 11:00 Ur Squamous Epith Cells Many per lpf (None-Few) H 07/29/16 11:00 Ur Renal Epithelial Cell Few per hpf (None-Few) 07/29/16 11:00 Urine Bacteria Few per hpf (None-Few) 07/29/16 11:00 Hyaline Casts None Seen per lpf (None-Few) 07/29/16 11:00 Ur Culture Indicated? NO (NO) 07/29/16 11:00 Urine Opiates Screen Negative ng/mL (Ytyznw=934) 07/30/16 04:07 Ur Barbiturates Screen Negative ng/mL (Jogaec=931) 07/30/16 04:07 Ur Phencyclidine Scrn Negative ng/mL (Cutoff=25) 07/30/16 04:07 Ur Amphetamines Screen Negative ng/mL (Xnssgc=9531) 07/30/16 04:07 U Benzodiazepines Scrn Negative ng/mL (Dfdynw=061) 07/30/16 04:07 Urine Cocaine Screen Negative ng/mL (Cutoff= 300) 07/30/16 04:07 U Marijuana (THC) Screen Negative ng/mL (Cutoff = 50) 07/30/16 04:07 Consult Discharge Plan - Plan Referrals: Katharine Sarabia MD [Primary Care Provider] -
[2016-07-30] MEDS: *HR* Heparin 5,000 UNIT/ML VIAL SQ SCH (18:25)
[2016-07-31 08:36] LABS: Basophils % 0.5 %; Eosinophils # 0.1 K/mcL (0.0-0.6); Hematocrit 35.5 % (35.3-44.9); Hemoglobin 11.1 g/dL (11.5-15.4); Immature Granulocytes % 0.3 % (0-4); Lymphocytes # 1.5 K/mcL (0.6-4.6); Lymphocytes % 24.3 %; Mean Corpuscular HGB Conc 31.3 g/dL (31.6-35.5); Mean Corpuscular Hemoglobin 28.6 pg (28.0-33.3); Mean Corpuscular Volume 91.5 fL (83.0-100.0); Mean Platelet Volume 9.2 fL (9.4-12.4); Monocytes # 0.6 K/mcL (0.0-1.3); Monocytes % 10.4 %; Neutrophils # 3.7 K/mcL (1.6-8.9); Platelet Count 258 K/mcL (140-400); Red Blood Count 3.88 M/mcL (3.82-4.97); Red Cell Distribution Width 15.4 % (11.5-14.5); Segmented Neutrophils % 62.5 %
[2016-07-31 08:48] LABS: BUN/Creatinine Ratio 33 (6-26); Blood Urea Nitrogen 23 mg/dL (7-20); Calcium 9.6 mg/dL (8.6-10.8); Carbon Dioxide 24 mEq/L (19-29); Chloride 108 mEq/L (98-109); Glucose 86 mg/dL (70-99); Magnesium 1.6 mg/dL (1.6-2.6); Osmolality,Calculated 293 (280-300); Phosphorous 2.8 mg/dL (2.3-4.7); Potassium 4.2 mEq/L (3.5-4.5); Sodium 140 mEq/L (136-145); eGFR For African Americans > 60 (> 60); eGFR For Non-African Americans > 60 (> 60)
[2016-07-31] MEDS: *HR* Heparin 5,000 UNIT/ML VIAL SQ SCH ×2 (09:25→17:23)
--- NOTE | 2016-07-31 11:36 | Discharge Summary ---
Date of Encounter: 07/31/16 Time of Encounter: 11:34 - Discharge Diagnosis (1) Acute encephalopathy Priority: Primary Status: Resolved (2) Hypothermia Priority: Primary Status: Resolved Qualifiers: Encounter type: initial encounter Qualified Code(s): T68.XXXA - Hypothermia , initial encounter (3) DVT prophylaxis Priority: Secondary Status: Acute (4) Hypertension Priority: Secondary Status: Chronic Qualifiers: Hypertension type: essential hypertension Qualified Code(s): I10 - Essential (primary) hypertension - Discharge Medications Prescriptions: Sennosides/Docusate Sodium [Senna Plus] 2 each PO BID PRN #30 tablet PRN Reason: Constipation Home Medications: Lisinopril [Zestril] 10 mg PO DAILY 02/05/15 [History] Acetaminophen [Tylenol] 650 mg PO Q6HR PRN #0 tablet 07/31/16 [Rx] Sennosides/Docusate Sodium [Senna Plus] 2 each PO BID PRN #30 tablet 07/31/16 [ Rx] Allergies/Adverse Reactions: Allergies No Known Allergies Allergy (Verified 07/29/16 10:22) Date of admission: 07/29/16 13:21 Primary care physician: Katharine Sarabia Consults: 07/29/16 15:15 Consult to Director Business Intelligence [CONS] Routine Reason for SW Consult: discharge planning- may need ECF placement 07/29/16 15:16 Consult to Psychiatry [CONS] Routine Consulting Provider: Sarah Barron Reason for Consult: delirum/ hallucination Time Notified: 15:17 Call Completed: No 07/30/16 12:29 Consult to Occupational Therapy [CONS] Routine Comment: Evaluate, develop and implement POC Consult to Physical Therapy [CONS] Routine Comment: Evaluate, develop and implement POC Discharging clinician: Heidy Elena Anticipated date of discharge: 07/31/16 - Patient Status Disposition: Transfer SNF Condition: Fair Functional capacity at discharge: uses cane/walker Overall status at discharge: patient is progressing back to baseline - Discharge Instructions Follow Up With: Katharine Sarabia MD [Primary Care Provider] - Additional Instructions: Please follow up with your primary care physician within one week after your discharge from the hospital. Please continue all your home medications as prescribed by your primary care physician. Please maintain fall precautions and ambulate with assistance. - Diet and Activity Activity: as per physical therapy Diet: low fat, low cholesterol Hospital course: Ms. Humphrey is a 80 year old female with PMH of HTN who was admitted for evaluation of hypothermia, acute encephalopathy. Patient's work up was essentially negative and all organic causes of her mental status change were ruled out. Upon arrival to the ER, patient had reported of having visual hallucinations which have now resolved. Her mental status waxes and wanes at baseline. Patient was evaluated by psychiatry and no further intervention was recommended. She was also seen by physical therapy and rehab placement was recommended. At this time, patient's mental status is back to baseline. She is hemodynamically stable and will be discharged to rehab. She is to follow up with PCP within one week after discharge. - Time Spent with Patient Total time spent providing and/or coordinating discharge services: - Constitutional Vitals: Temp Pulse Resp BP Pulse Ox 97.4 F L 70 16 144/77 99 07/31/16 11:32 07/31/16 11:32 07/31/16 11:32 07/31/16 11:32 07/31/16 11:32 General appearance: Present: A&O X 2, no acute distress, answers questions appropriately - Head Head exam: Present: atraumatic, normocephalic - Eye Eye exam: Present: conjuntiva pink, sclera anicteric - Respiratory Respiratory exam: Present: CTAB. Absent: respiratory distress, wheezes - Cardiovascular Cardiovascular exam: Present: RRR, +S1, +S2 - GI/Abdominal GI/Abdominal exam: Present: normal bowel sounds, soft. Absent: distended, tenderness - Extremities Exam Extremities exam: Present: pedal edema (bilateral lower extermities ), warm, radial pulses palpable and symetrical. Absent: calf tenderness, tenderness - Neurological Exam Neurological exam: Present: alert - Psychiatric Psychiatric exam: Present: normal affect, normal mood
[2016-07-31] MEDS: Sennosides/Docusate Sodium TABLET PO SCH ×2 (12:46→20:24)
--- NOTE | 2016-07-31 15:32 | Physician Discharge Referral ---
ExtendedCare Referral Info Transfer To: [facility] Provider in Charge after Transfer: PCP - Diagnosis (1) Acute encephalopathy Priority: Primary Status: Resolved (2) Hypothermia Priority: Primary Status: Resolved (3) DVT prophylaxis Priority: Secondary Status: Acute (4) Hypertension Priority: Secondary Status: Chronic - Transfer Medications Prescriptions: Sennosides/Docusate Sodium [Senna Plus] 2 each PO BID PRN #30 tablet PRN Reason: Constipation Home Medications: Lisinopril [Zestril] 10 mg PO DAILY 02/05/15 [History] Acetaminophen [Tylenol] 650 mg PO Q6HR PRN #0 tablet 07/31/16 [Rx] Sennosides/Docusate Sodium [Senna Plus] 2 each PO BID PRN #30 tablet 07/31/16 [ Rx] Allergies/Adverse Reactions: Allergies No Known Allergies Allergy (Verified 07/29/16 10:22) - Respiratory Orders Smoking Cessation: Smoking cessation has been advised. For more information, call the [employer] Tobacco Quit Line at 7-431-DRWB-NOW. - Treatments List/Other: Please follow up with your primary care physician within one week after your discharge from the hospital. Please continue all your home medications as prescribed by your primary care physician. Please maintain fall precautions and ambulate with assistance. CERTIFICATION: I certify that the transfer of the above named patient to an Extended Care Facility is necessary for the continuing treatment of the diagnosis listed. The above information is true and accurate reflection of patient's current condition. Confidential - Redisclosure prohibited without a patient's written consent.
[2016-08-01] MEDS: *HR* Heparin 5,000 UNIT/ML VIAL SQ SCH (06:12)
[2016-08-01] MEDS: Sennosides/Docusate Sodium TABLET PO SCH (09:48)
--- NOTE | 2016-08-01 10:52 | Internal Med Progress Note ---
Date of Encounter: 08/01/16 Time of Encounter: 10:50 - Assessment and plan (1) Acute encephalopathy Current Visit: No Status: Resolved (2) Hypothermia Current Visit: Yes Status: Resolved Qualifiers: Encounter type: initial encounter Qualified Code(s): T68.XXXA - Hypothermia , initial encounter (3) DVT prophylaxis Current Visit: No Status: Acute (4) Hypertension Current Visit: No Status: Chronic Qualifiers: Hypertension type: essential hypertension Qualified Code(s): I10 - Essential (primary) hypertension - Subjective Interval history: Patient seen and examined at bedside. Resting comfortably in bed and states she feels better at this time and has no complaints. Patient was discharged to SNF yesterday however was pending placement and have social service issues. At this time she agrees to discharge to SNF. Is stable for d/c today. Patient is to follow up with PCP within one week after her discharge from the hospital. - Constitutional Vitals: Temp Pulse Resp BP Pulse Ox 98.1 F 66 14 120/74 97 08/01/16 06:45 08/01/16 06:45 08/01/16 06:45 08/01/16 06:45 08/01/16 06:45 General appearance: Present: A&O X 3, no acute distress, answers questions appropriately - Head Head exam: Present: atraumatic, normocephalic - Eye Eye exam: Present: PERRL, conjuntiva pink, sclera anicteric - Respiratory Respiratory exam: Present: CTAB. Absent: accessory muscle use, rales, rhonchi, wheezes - Cardiovascular Cardiovascular exam: Present: RRR, +S1, +S2. Absent: diastolic murmur, gallop, rubs, systolic murmur - GI/Abdominal GI/Abdominal exam: Present: normal bowel sounds, soft, no peritoneal signs. Absent: distended, tenderness - Extremities Exam Extremities exam: Present: pedal edema, warm, radial pulses palpable and symetrical. Absent: tenderness - Neurological Exam Neurological exam: Present: alert, oriented X3 - Psychiatric Psychiatric exam: Present: normal affect, normal mood Internal Medicine: Result - Labs CBC & Chem 7: 07/31/16 08:23 07/31/16 08:23 - ABG Interpretation ABG results: ABG ABG pH 7.40 pH Units (7.32-7.45) 07/29/16 11:30 ABG pCO2 47 mmHg (35-45) H 07/29/16 11:30 ABG pO2 92 mmHg (85-104) 07/29/16 11:30 ABG O2 Saturation 97 % (95-98) 07/29/16 11:30 PT/INR, D-dimer PT 11.4 Seconds (9.4-12.1) 07/29/16 11:44 Consult Discharge Plan - Plan Additional Instructions: Please follow up with your primary care physician within one week after your discharge from the hospital. Please continue all your home medications as prescribed by your primary care physician. Please maintain fall precautions and ambulate with assistance. Referrals: Katharine Sarabia MD [Primary Care Provider] - Prescriptions: Sennosides/Docusate Sodium [Senna Plus] 2 each PO BID PRN #30 tablet PRN Reason: Constipation
[2016-08-01 11:01] VITALS: BP 120/69
== END 2016-08-01 11:41 ==
LOC: 3ANU 10:16 → EMEROO 10:16 → 3ANU 13:59
PROVIDERS: ADMIT Family Medicine; ATTEND Internal Medicine

== ENCOUNTER 2017-02-02 18:25 | Observation (INO) ==
--- NOTE | 2017-02-02 19:20 | Emergency Department Note ---
Disposition Clinical Impression: UTI (urinary tract infection), Failure to thrive, Weakness Disposition: Admitted As Inpatient Condition: Fair Extremity Problem HPI - General Chief complaint: ED Extremity Problem,Nontraumatic Stated complaint: BILAT FEET SWELLING Time Seen by Provider: 02/02/17 18:28 Source: patient, family, EMS Mode of arrival: EMS Limitations: no limitations Nursing Notes Reviewed: Yes Vital Signs Reviewed: Yes - History of Present Illness HPI Narrative: Patient presents to the ED with the chief complaint of weakness, decreased ambulation, failure to thrive, bilateral leg swelling. Onset was about 3 weeks ago and has been progressively getting worse. Patient states she has had some mild swelling in her ankles before, but now both of her legs are swollen. She reports decreased ability to ambulate and can no longer take care of herself at home. She does have family members that check on her. However, they are unable to be with her [id number]. She denies any pain or any symptoms really, other than feeling generally weak in her legs. No chest pain, shortness of breath, fever, cough, history of DVT or PE, or other concerns. Family is requesting admission for placement into long-term care facility Pain Scale: 0 - Related Data Home Medications Medication Instructions Recorded Confirmed Aspirin [Lo-Dose Aspirin EC] 81 mg PO DAILY 08/29/16 02/02/17 Docusate Sodium [Dok] 100 mg PO DAILY 08/29/16 02/02/17 Ibuprofen [Motrin] 800 mg PO TID PRN 08/29/16 02/02/17 Lisinopril [Zestril] 10 mg PO DAILY 08/29/16 02/02/17 Multivitamin [One Daily 1 tab PO DAILY 08/29/16 02/02/17 Multivitamin] [place]-3/Dha/Epa/Fish Oil [Fish Oil 1,000 mg PO DAILY 08/29/16 02/02/17 1,000 mg Softgel] Furosemide [Lasix] 20 mg PO DAILY 02/02/17 02/02/17 Allergies Allergy/AdvReac Type Severity Reaction Status Date / Time No Known Allergies Allergy Verified 08/28/16 08:35 All systems ED: reviewed and negative except as stated. Constitutional: Denies: fever Cardiovascular: Reports: edema. Denies: chest pain Past Medical History - Past Medical History Attestation: Yes The following information was validated with the patient. Source: patient, old records reviewed Medical history: Reports: arthritis, DVT, hyperlipidemia, hypertension, other Surgical history: Reports: knee replacement Psychiatric history: Reports: other - Social History Smoking Status: Never smoker Smokeless Tobacco Status: No Alcohol use: Reports: none Drug use: Reports: none Physical Exam - General Limitations: no limitations General appearance: alert, in no apparent distress - Head Head exam: atraumatic, normocephalic, normal inspection - Eye Eye exam: Present: normal appearance, PERRL, EOMI - ENT ENT exam: normal exam, normal oropharynx, mucous membranes moist - Neck Neck exam: Present: normal inspection, full ROM, trachea midline - Chest Chest inspection: Present: normal inspection, symmetric chest wall rise, other ( Patient does have yeast infection-type erythema underneath her bilateral breasts and in her groin) - Respiratory Respiratory exam: Present: normal lung sounds bilaterally - Cardiovascular Cardiovascular exam: Present: regular rate, normal rhythm, normal heart sounds - Abdominal Exam Abdominal exam: Present: soft, Non-Tender. Absent: tenderness, distention, guarding, rebound, rigidity - Extremities Exam Extremities exam: Present: normal inspection, full ROM, pedal edema (Bilateral nonpitting edema extending up to the thighs). Absent: tenderness - Neurological Exam Neurological exam: Present: alert, oriented X3 - Psychiatric Psychiatric exam: Present: normal affect, normal mood - Skin Skin exam: Present: warm, dry, intact, normal color Course Course Narrative: 81-year-old female presenting with bilateral feet swelling and decreased ambulation with failure to thrive. Lives at home alone and can no longer take care of her activities of daily living. We will get general labs, chest x-ray and admit. Vital Signs Temperature 98.1 F 02/02/17 18:27 Pulse Rate 81 02/02/17 18:27 Respiratory Rate 18 02/02/17 18:27 Blood Pressure 128/54 02/02/17 18:27 O2 Sat by Pulse Oximetry 99 02/02/17 18:27 Temperature 98.1 F 02/02/17 18:27 Pulse Rate 81 02/02/17 19:26 Respiratory Rate 16 02/02/17 21:57 Blood Pressure 114/45 02/02/17 21:57 O2 Sat by Pulse Oximetry 86 02/02/17 19:26 Oxygen Delivery Oxygen Delivery Room Air Extremity Problem, Nontraumati - Medical Records Medical records reviewed: Yes I reviewed the patient's medical records. - Lab Data Lab results reviewed: Yes I reviewed the patient's lab results. Result diagrams: 02/02/17 19:54 02/02/17 19:54 Lab Results 02/02/17 02/02/17 02/02/17 Range/Units 19:47 19:54 19:54 WBC 9.5 (4.3-11.1) K/mcL RBC 3.77 L (3.82-4.97) M/mcL Hgb 10.8 L (11.5-15.4) g/dL Hct 33.9 L (35.3-44.9) % MCV 89.9 (83.0-100.0) fL MCH 28.6 (28.0-33.3) pg MCHC 31.9 (31.6-35.5) g/dL RDW 13.6 (11.5-14.5) % Plt Count 291 (140-400) K/mcL MPV 9.2 L (9.4-12.4) fL Immature Gran % 0.4 (0-4) % Seg Neutrophils % 78.8 % Lymphocytes % 9.9 % Monocytes % 8.8 % Eosinophils % 1.8 % Basophils % 0.3 % Neutrophils # 7.5 (1.6-8.9) K/mcL Lymphocytes # 0.9 (0.6-4.6) K/mcL Monocytes # 0.8 (0.0-1.3) K/mcL Eosinophils # 0.2 (0.0-0.6) K/mcL Basophils # 0.0 (0.0-0.2) K/mcL Sodium 137 (136-145) mEq/L Potassium 3.9 (3.5-4.5) mEq/L Chloride 101 (98-109) mEq/L Carbon Dioxide 28 (19-29) mEq/L BUN 20 (7-20) mg/dL Creatinine 0.80 (0.57-1.11) mg/dL Est GFR ( Amer) > 60 (> 60) Est GFR (Non-Af Amer) > 60 (> 60) BUN/Creatinine Ratio 25 (6-26) Glucose 98 (70-99) mg/dL Calculated Osmolality 287 (280-300) Calcium 10.2 (8.6-10.8) mg/dL Ionized Calcium 1.29 (1.15-1.35) mmol/L Phosphorus 2.8 (2.3-4.7) mg/dL Magnesium 1.7 (1.6-2.6) mg/dL Total Bilirubin < 0.3 (0.2-1.2) mg/dL AST 26 (5-34) Units/L ALT 18 (0-55) Units/L Alkaline Phosphatase 93 (38-126) Units/L Troponin I (0-0.03) ng/mL B-Natriuretic Peptide (0-100) pg/mL Serum Total Protein 7.0 (6.0-8.3) g/dL Albumin 3.1 L (3.5-5.0) g/dL Globulin 3.9 H (2.4-3.5) g/dL Albumin/Globulin Ratio 0.8 L (1.1-2.2) TSH 2.162 (0.350-4.840) mcIU/mL Urine Color Yellow (Yellow) Urine Clarity Clear (Clear) Urine pH 5.5 (5.0-8.0) pH Units Ur Specific [place] 1.021 (1.010-1.025) Urine Protein Negative (Neg-Trace) mg/dL Urine Glucose (UA) Normal (Normal) mg/dL Urine Ketones Negative (Negative) mg/dL Urine Blood Negative (Negative) Urine Nitrite Negative (Negative) Urine Bilirubin Negative (Negative) Urine Urobilinogen Normal (Normal) mg/dL Ur Leukocyte Esterase Moderate H (Negative) Urine Microscopic RBC 3-5 H (0-3) per hpf Urine Microscopic WBC 15-30 H (0-3) per hpf Ur Squamous Epith Cells Many H (None-Few) per lpf Urine Bacteria None Seen (None-Few) per hpf Hyaline Casts None Seen (None-Few) per lpf Urine Yeast Moderate H (None Seen) per hpf Ur Culture Indicated? YES A (NO) 02/02/17 02/02/17 Range/Units 19:54 19:54 WBC (4.3-11.1) K/mcL RBC (3.82-4.97) M/mcL Hgb (11.5-15.4) g/dL Hct (35.3-44.9) % MCV (83.0-100.0) fL MCH (28.0-33.3) pg MCHC (31.6-35.5) g/dL RDW (11.5-14.5) % Plt Count (140-400) K/mcL MPV (9.4-12.4) fL Immature Gran % (0-4) % Seg Neutrophils % % Lymphocytes % % Monocytes % % Eosinophils % % Basophils % % Neutrophils # (1.6-8.9) K/mcL Lymphocytes # (0.6-4.6) K/mcL Monocytes # (0.0-1.3) K/mcL Eosinophils # (0.0-0.6) K/mcL Basophils # (0.0-0.2) K/mcL Sodium (136-145) mEq/L Potassium (3.5-4.5) mEq/L Chloride (98-109) mEq/L Carbon Dioxide (19-29) mEq/L BUN (7-20) mg/dL Creatinine (0.57-1.11) mg/dL Est GFR ( Amer) (> 60) Est GFR (Non-Af Amer) (> 60) BUN/Creatinine Ratio (6-26) Glucose (70-99) mg/dL Calculated Osmolality (280-300) Calcium (8.6-10.8) mg/dL Ionized Calcium (1.15-1.35) mmol/L Phosphorus (2.3-4.7) mg/dL Magnesium (1.6-2.6) mg/dL Total Bilirubin (0.2-1.2) mg/dL AST (5-34) Units/L ALT (0-55) Units/L Alkaline Phosphatase (38-126) Units/L Troponin I 0.00 (0-0.03) ng/mL B-Natriuretic Peptide 38 (0-100) pg/mL Serum Total Protein (6.0-8.3) g/dL Albumin (3.5-5.0) g/dL Globulin (2.4-3.5) g/dL Albumin/Globulin Ratio (1.1-2.2) TSH (0.350-4.840) mcIU/mL Urine Color (Yellow) Urine Clarity (Clear) Urine pH (5.0-8.0) pH Units Ur Specific [place] (1.010-1.025) Urine Protein (Neg-Trace) mg/dL Urine Glucose (UA) (Normal) mg/dL Urine Ketones (Negative) mg/dL Urine Blood (Negative) Urine Nitrite (Negative) Urine Bilirubin (Negative) Urine Urobilinogen (Normal) mg/dL Ur Leukocyte Esterase (Negative) Urine Microscopic RBC (0-3) per hpf Urine Microscopic WBC (0-3) per hpf Ur Squamous Epith Cells (None-Few) per lpf Urine Bacteria (None-Few) per hpf Hyaline Casts (None-Few) per lpf Urine Yeast (None Seen) per hpf Ur Culture Indicated? (NO) - Radiology Data Radiology results reviewed: Yes I reviewed the patient's radiology results. - EKG Data EKG attestation: Yes I reviewed and interpreted this EKG. EKG results narrative: Sinus rhythm, rate 73, TN interval 164, QRS 92, QTC 409, left axis deviation, no acute ischemic changes
--- NOTE | 2017-02-02 19:50 | Emergency Department Note ---
START Narrative - START START: I examined this patient and my medical decision-making was reviewed with the BUSINESS INTEGRATION MANAGER/PA/Advanced Practice Nurse/Resident Physician. I agree with the documented findings, disposition and treatment plan as described except to the extent set forth below. ED attending: Patient's emergency medicine resident Dr. Weaver. Please see copy of this note for H&P evaluation and management and ED disposition. We both had independent [id number] time in contact with this patient. Briefly: A 81-year-old female brought in by ambulance accompanied by family. For increasing swelling of both feet progressive weakness and inability to care for self. Family has requested patient be admitted so she can be placed at local assisted facility. X-ray and screening labs along with urinalysis are pending. Disposition pending
[2017-02-02 20:00] LABS: Bilirubin,Urine Negative (Negative); Blood,Urine Negative (Negative); Clarity,Urine Clear (Clear); Color,Urine Yellow (Yellow); Glucose,Urine (UA) Normal (Normal); Ketones,Urine Negative (Negative); Leukocyte Esterase,Urine Moderate (Negative); Nitrite,Urine Negative (Negative); PH,Urine 5.5 pH Units (5.0-8.0); Protein,Urine Negative (Neg-Trace); Specific Gravity,Urine 1.021 (1.010-1.025); Urobilinogen,Urine Normal (Normal)
[2017-02-02 20:02] LABS: Bacteria,Urine None Seen per hpf (None-Few); Hyaline Casts,Urine None Seen per lpf (None-Few); Squamous Epithelial Cell,Urine Many per lpf (None-Few); WBC,Urine 15-30 per hpf (0-3)
[2017-02-02 20:06] LABS: Ionized Calcium 1.29 mmol/L (1.15-1.35)
[2017-02-02 20:11] LABS: Basophils % 0.3 %; Eosinophils # 0.2 K/mcL (0.0-0.6); Eosinophils % 1.8 %; Hematocrit 33.9 % (35.3-44.9); Hemoglobin 10.8 g/dL (11.5-15.4); Immature Granulocytes % 0.4 % (0-4); Lymphocytes # 0.9 K/mcL (0.6-4.6); Lymphocytes % 9.9 %; Mean Corpuscular HGB Conc 31.9 g/dL (31.6-35.5); Mean Corpuscular Hemoglobin 28.6 pg (28.0-33.3); Mean Corpuscular Volume 89.9 fL (83.0-100.0); Mean Platelet Volume 9.2 fL (9.4-12.4); Monocytes # 0.8 K/mcL (0.0-1.3); Monocytes % 8.8 %; Neutrophils # 7.5 K/mcL (1.6-8.9); Platelet Count 291 K/mcL (140-400); Red Blood Count 3.77 M/mcL (3.82-4.97); Red Cell Distribution Width 13.6 % (11.5-14.5); Segmented Neutrophils % 78.8 %
[2017-02-02 20:15] LABS: Yeast,Urine Moderate per hpf (None Seen)
[2017-02-02 20:17] LABS: Alanine Aminotransferase 18 Units/L (0-55); Albumin 3.1 g/dL (3.5-5.0); Albumin/Globulin Ratio 0.8 (1.1-2.2); Alkaline Phosphatase 93 Units/L (38-126); Aspartate Amino Transferase 26 Units/L (5-34); BUN/Creatinine Ratio 25 (6-26); Blood Urea Nitrogen 20 mg/dL (7-20); Calcium 10.2 mg/dL (8.6-10.8); Carbon Dioxide 28 mEq/L (19-29); Chloride 101 mEq/L (98-109); Globulin 3.9 g/dL (2.4-3.5); Glucose 98 mg/dL (70-99); Magnesium 1.7 mg/dL (1.6-2.6); Osmolality,Calculated 287 (280-300); Phosphorous 2.8 mg/dL (2.3-4.7); Potassium 3.9 mEq/L (3.5-4.5); Sodium 137 mEq/L (136-145); eGFR For African Americans > 60 (> 60); eGFR For Non-African Americans > 60 (> 60)
[2017-02-02 20:37] LABS: Thyroid Stimulating Hormone 2.162 mcIU/mL (0.350-4.840)
[2017-02-02] MEDS ORDERED: Ketorolac 15 MG/ML VIAL IVP ONE (20:53)
[2017-02-02] MEDS ORDERED: *HR* Promethazine 25 MG/ML VIAL IVP ONE (20:53)
[2017-02-02] MEDS ORDERED: Ondansetron 4 MG/2 ML VIAL IVP PRN (22:49)
[2017-02-02] MEDS ORDERED: Acetaminophen 325 MG TABLET PO PRN (22:49)
[2017-02-02] MEDS ORDERED: Naloxone 0.4 MG/ML INJ IVP PRN (22:49)
[2017-02-02] MEDS ORDERED: Ibuprofen 800 MG TABLET PO PRN (22:54)
[2017-02-02] MEDS ORDERED: Furosemide 20 MG/2 ML VIAL IVP ONE (22:56)
--- NOTE | 2017-02-02 23:05 | Internal Med History&Physical ---
<Isis Hubbard M - Last Filed: 02/02/17 22:58> Date of Encounter: 02/02/17 Time of Encounter: 22:58 Assessment and Plan (1) Failure to thrive Current visit: Yes Status: Acute Patient unable to ambulate or care for self at home. Patient's niece reports she has fallen a few times in the last few weeks. Patient's niece tries to help , but works time piece repairer. PT/OT consult [facility] consulted for discharge planning. Qualifiers: Failure to thrive age range: in adult Qualified Code(s): R62.7 - Adult failure to thrive (2) Falls Current visit: Yes Status: Acute Patient's niece reports patient has fallen at home a few times in the last few weeks. Patient denies falling. Head CT negative for any acute intracranial abnormality. PT/OT consults [facility] consult for discharge planning. Qualifiers: Encounter type: initial encounter Qualified Code(s): W19.XXXA - Unspecified fall, initial encounter (3) Swelling of lower extremity Current visit: Yes Status: Acute Patient has +2 BLE edema. She reports difficulty ambulating because of it. No history of CHF, but takes 20mg of Lasix PO daily. Lungs are clear. CXR with no acute cardiopulmonary disease and BNP normal at 38. 20mg Lasix IVP once, followed by 40mg PO daily compression hose. (4) UTI (urinary tract infection) Current visit: Yes Status: Acute UA concerning for UTI. Patient reports she completed antibiotics for a UTI on Thursday. Await culture results Rocephin IVPB Qualifiers: Urinary tract infection type: acute cystitis Hematuria presence: with hematuria Qualified Code(s): N30.01 - Acute cystitis with hematuria (5) Fungal infection of skin Current visit: Yes Status: Acute Patient with fungal rash below breasts and in groin bilaterally. Nystatin Powder to affected areas TID. consult to wound care. (6) DVT prophylaxis Current visit: Yes Status: Acute anti-embolic stockings heparin SQ TID Internal Medicine - H&P: HPI Chief complaint: weakness, leg swelling Admitted From: Emergency Dept Plans for Post Hospital Care: Home History of present illness: Ms. Humphrey is a 81 year old female with hypertension, hyperlipidemia who presented to the emergency department today with complaints of weakness, leg swelling. Patient reports that her feet have been swollen, chronically, and recently her swelling has increased so much so that she is having trouble walking and taking care of herself. Patient denies falling recently, however her niece reports that she has fallen a few times in the last week. Patient denies any complaints in general, however her niece reports that the patient lives alone, and is unable to take care of herself. Niece reports that she is unable to ambulate, and has had a few falls over the last week. Patient denies lightheadedness, dizziness, chest pain, palpitations, shortness of breath. Patient denies any dysuria, nausea, vomiting, or diarrhea. Evaluation in the emergency department revealed UA consistent with UTI. Patient was anemic with hemoglobin of 10.8, which appears to be patient's baseline other labs are grossly normal, with negative troponin at 0.00, BNP normal at 38. EKG showed normal sinus rhythm with no ischemic changes. Head CT showed no acute intracranial abnormality. Chest x-ray showed no acute cardiopulmonary disease. On exam, patient alert and oriented, in no acute distress. Heart had regular rate and rhythm. Lungs are clear bilaterally to auscultation. Bilateral lower extremities with +2 pitting edema. Patient had significant fungal skin infection under the folds of her breasts and in her groin area. Past Med Surg Social Fam HX - Past Medical History Medical history: arthritis, DVT, hyperlipidemia, hypertension Psychiatric history: other - Past Surgical History Surgical History: knee replacement - Social History Smoking Status: Never smoker Smokeless Tobacco Status: No Alcohol use: none Drug use: none - Family History Father Adopted: No Living Status: Age at : 80 Cause of : IA Hx Family Cardiac Disorders: Yes ([place]) Hx Family Respiratory Disorders: No Hx Family Cancer: No Hx Family GI Disorders: No Hx Family Endocrine Disorder: No Hx Family Neuromuscular Disorders: No Hx Family Neurologic Disorders: No Hx Family HEENT Disorders: No Hx Family Autoimmune Disorders: No Mother Adopted: No Living Status: Age at : 80 Cause of : Kidney Failure Hx Family Cardiac Disorders: Yes Hx Family Respiratory Disorders: No Hx Family Cancer: No Hx Family GI Disorders: No Hx Family Endocrine Disorder: Yes (Diabetes) Hx Family Neuromuscular Disorders: No Hx Family Neurologic Disorders: No Hx Family HEENT Disorders: No Hx Family Autoimmune Disorders: No Hx Family Medical Disorders: Yes (Kidney Failure) Internal Medicine - H&P: Meds Aspirin [Lo-Dose Aspirin EC] 81 mg PO DAILY 08/29/16 [History] Docusate Sodium [Dok] 100 mg PO DAILY 08/29/16 [History] Ibuprofen [Motrin] 800 mg PO TID PRN 08/29/16 [History] Lisinopril [Zestril] 10 mg PO DAILY 08/29/16 [History] Multivitamin [One Daily Multivitamin] 1 tab PO DAILY 08/29/16 [History] [place]-3/Dha/Epa/Fish Oil [Fish Oil 1,000 mg Softgel] 1,000 mg PO DAILY 08/29/16 [History] Furosemide [Lasix] 20 mg PO DAILY 02/02/17 [History] Allergies No Known Allergies Allergy (Verified 08/28/16 08:35) All Systems PM: A 10-system review of systems was performed and is negative for pertinent findings except as documented above in the HPI. - Constitutional Constitutional: no chills, no fever(s), no night sweats - EENT Eyes: no change in vision, no discharge, no pain, no photophobia Ears: no ear discharge, no ear pain, no tinnitus Nose, mouth and throat: no dysphagia, no nasal discharge, no neck pain, no sore throat - Cardiovascular Cardiovascular ROS IM: edema (BLE), no chest pain, no diaphoresis, no dyspnea, no lightheadedness, no palpitations, no syncope - Respiratory Respiratory: no cough, no dyspnea, no wheezing, no excessive phlegm production - Gastrointestinal Gastrointestinal: no abdominal pain, no diarrhea, no hematemesis, no hematochezia, no melena, no nausea, no vomiting - Genitourinary Genitourinary: no change in urinary stream, no dysuria, no flank pain, no hematuria - Musculoskeletal Musculoskeletal ROS IM: no numbness, no tingling - Integumentary Integumentary IM: rash (under breasts and in groin), no unusual bruising - Neurological Neurological ROS: no confusion, no convulsions, no focal weakness, no numbness, no tingling, no tremor(s) - Hematologic/Lymphatic Hematologic/Lymphatic: no easy bruising - Constitutional Vitals: Temp Pulse Resp BP Pulse Ox 98.1 F 81 16 114/45 86 02/02/17 18:27 02/02/17 19:26 02/02/17 21:57 02/02/17 21:57 02/02/17 19:26 General appearance: Present: A&O X 3, pleasant, no acute distress - Head Head exam: Present: atraumatic, normocephalic - Eye Eye exam: Present: PERRL, conjuntiva pink, sclera anicteric Pupils: Present: PERRL - Neck Neck exam general surgery: Present: supple, trachea midline. Absent: lymphadenopathy - Respiratory Respiratory exam: Present: CTAB. Absent: accessory muscle use, rales, rhonchi, wheezes - Cardiovascular Cardiovascular exam: Present: RRR, +S1, +S2. Absent: diastolic murmur, gallop, rubs, systolic murmur - GI/Abdominal GI/Abdominal exam: Present: normal bowel sounds, soft, no peritoneal signs. Absent: distended, tenderness - Extremities Exam Extremities exam: Present: pedal edema (+2 BLE edema), warm, radial pulses palpable and symmetrical. Absent: calf tenderness, cyanotic - Neurological Exam Neurological exam: Present: CN II-XII intact, oriented X3, no focal deficits. Absent: pronater drift, facial droop, speech deficit - Skin Skin exam: Present: rash Additional comments: Fungal rash under breasts and in groin. Internal Med - H&P Results - Labs CBC & Chem 7: 02/02/17 19:54 02/02/17 19:54 Labs: All Lab Results (24 Hours) 02/02/17 02/02/17 02/02/17 Range/Units 19:47 19:54 19:54 WBC 9.5 (4.3-11.1) K/mcL RBC 3.77 L (3.82-4.97) M/mcL Hgb 10.8 L (11.5-15.4) g/dL Hct 33.9 L (35.3-44.9) % MCV 89.9 (83.0-100.0) fL MCH 28.6 (28.0-33.3) pg MCHC 31.9 (31.6-35.5) g/dL RDW 13.6 (11.5-14.5) % Plt Count 291 (140-400) K/mcL MPV 9.2 L (9.4-12.4) fL Immature Gran % 0.4 (0-4) % Seg Neutrophils % 78.8 % Lymphocytes % 9.9 % Monocytes % 8.8 % Eosinophils % 1.8 % Basophils % 0.3 % Neutrophils # 7.5 (1.6-8.9) K/mcL Lymphocytes # 0.9 (0.6-4.6) K/mcL Monocytes # 0.8 (0.0-1.3) K/mcL Eosinophils # 0.2 (0.0-0.6) K/mcL Basophils # 0.0 (0.0-0.2) K/mcL Sodium 137 (136-145) mEq/L Potassium 3.9 (3.5-4.5) mEq/L Chloride 101 (98-109) mEq/L Carbon Dioxide 28 (19-29) mEq/L BUN 20 (7-20) mg/dL Creatinine 0.80 (0.57-1.11) mg/dL Est GFR ( Amer) > 60 (> 60) Est GFR (Non-Af Amer) > 60 (> 60) BUN/Creatinine Ratio 25 (6-26) Glucose 98 (70-99) mg/dL Calculated Osmolality 287 (280-300) Calcium 10.2 (8.6-10.8) mg/dL Ionized Calcium 1.29 (1.15-1.35) mmol/L Phosphorus 2.8 (2.3-4.7) mg/dL Magnesium 1.7 (1.6-2.6) mg/dL Total Bilirubin < 0.3 (0.2-1.2) mg/dL AST 26 (5-34) Units/L ALT 18 (0-55) Units/L Alkaline Phosphatase 93 (38-126) Units/L Troponin I (0-0.03) ng/mL B-Natriuretic Peptide (0-100) pg/mL Serum Total Protein 7.0 (6.0-8.3) g/dL Albumin 3.1 L (3.5-5.0) g/dL Globulin 3.9 H (2.4-3.5) g/dL Albumin/Globulin Ratio 0.8 L (1.1-2.2) TSH 2.162 (0.350-4.840) mcIU/mL Urine Color Yellow (Yellow) Urine Clarity Clear (Clear) Urine pH 5.5 (5.0-8.0) pH Units Ur Specific [place] 1.021 (1.010-1.025) Urine Protein Negative (Neg-Trace) mg/dL Urine Glucose (UA) Normal (Normal) mg/dL Urine Ketones Negative (Negative) mg/dL Urine Blood Negative (Negative) Urine Nitrite Negative (Negative) Urine Bilirubin Negative (Negative) Urine Urobilinogen Normal (Normal) mg/dL Ur Leukocyte Esterase Moderate H (Negative) Urine Microscopic RBC 3-5 H (0-3) per hpf Urine Microscopic WBC 15-30 H (0-3) per hpf Ur Squamous Epith Cells Many H (None-Few) per lpf Urine Bacteria None Seen (None-Few) per hpf Hyaline Casts None Seen (None-Few) per lpf Urine Yeast Moderate H (None Seen) per hpf Ur Culture Indicated? YES A (NO) 02/02/17 02/02/17 Range/Units 19:54 19:54 WBC (4.3-11.1) K/mcL RBC (3.82-4.97) M/mcL Hgb (11.5-15.4) g/dL Hct (35.3-44.9) % MCV (83.0-100.0) fL MCH (28.0-33.3) pg MCHC (31.6-35.5) g/dL RDW (11.5-14.5) % Plt Count (140-400) K/mcL MPV (9.4-12.4) fL Immature Gran % (0-4) % Seg Neutrophils % % Lymphocytes % % Monocytes % % Eosinophils % % Basophils % % Neutrophils # (1.6-8.9) K/mcL Lymphocytes # (0.6-4.6) K/mcL Monocytes # (0.0-1.3) K/mcL Eosinophils # (0.0-0.6) K/mcL Basophils # (0.0-0.2) K/mcL Sodium (136-145) mEq/L Potassium (3.5-4.5) mEq/L Chloride (98-109) mEq/L Carbon Dioxide (19-29) mEq/L BUN (7-20) mg/dL Creatinine (0.57-1.11) mg/dL Est GFR ( Amer) (> 60) Est GFR (Non-Af Amer) (> 60) BUN/Creatinine Ratio (6-26) Glucose (70-99) mg/dL Calculated Osmolality (280-300) Calcium (8.6-10.8) mg/dL Ionized Calcium (1.15-1.35) mmol/L Phosphorus (2.3-4.7) mg/dL Magnesium (1.6-2.6) mg/dL Total Bilirubin (0.2-1.2) mg/dL AST (5-34) Units/L ALT (0-55) Units/L Alkaline Phosphatase (38-126) Units/L Troponin I 0.00 (0-0.03) ng/mL B-Natriuretic Peptide 38 (0-100) pg/mL Serum Total Protein (6.0-8.3) g/dL Albumin (3.5-5.0) g/dL Globulin (2.4-3.5) g/dL Albumin/Globulin Ratio (1.1-2.2) TSH (0.350-4.840) mcIU/mL Urine Color (Yellow) Urine Clarity (Clear) Urine pH (5.0-8.0) pH Units Ur Specific [place] (1.010-1.025) Urine Protein (Neg-Trace) mg/dL Urine Glucose (UA) (Normal) mg/dL Urine Ketones (Negative) mg/dL Urine Blood (Negative) Urine Nitrite (Negative) Urine Bilirubin (Negative) Urine Urobilinogen (Normal) mg/dL Ur Leukocyte Esterase (Negative) Urine Microscopic RBC (0-3) per hpf Urine Microscopic WBC (0-3) per hpf Ur Squamous Epith Cells (None-Few) per lpf Urine Bacteria (None-Few) per hpf Hyaline Casts (None-Few) per lpf Urine Yeast (None Seen) per hpf Ur Culture Indicated? (NO) - Diagnostic Studies Chest x-ray Additional comments: Chest X-Ray 02/02/17 19:05 IMPRESSION: No acute cardiopulmonary disease. D/ / Kory Hinojosa MD / Kory Hinojosa MD Interpreting Provider: Kory Hinojosa MD CT scan - head Additional comments: Head CT 02/02/17 19:06 IMPRESSION: No acute intracranial abnormality. 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 D/ / 02/02/2017 21:01:24 Gabriela Byers MD / alba Interpreting Provider: Gabriela Byers MD <Dave Rodriguez - Last Filed: 02/02/17 23:59> Date of Encounter: 02/02/17 Internal Medicine - H&P: HPI History of present illness: Ms. Humphrey is a 81 year old female All Systems PM: A 10-system review of systems was performed and is negative for pertinent findings except as documented above in the HPI. - Constitutional Vitals: Temp Pulse Resp BP Pulse Ox 97.6 F 78 16 120/71 95 02/02/17 23:22 02/02/17 23:22 02/02/17 23:22 02/02/17 23:22 02/02/17 23:22 Internal Med - H&P Results - Labs CBC & Chem 7: 02/02/17 19:54 02/02/17 19:54 - Attending Attestation I independently obtained history and examined this patient and my medical decision-making was reviewed with the nurse practitioner, Isis Hubbard. I agree with the documented findings, disposition and treatment plan as described. My findings are summarized below: She is awake alert oriented to self, place time and situation. Denies pain. Heart is regular S1-S2 no murmurs, lungs are clear, abdomen is soft. There is 2 + lower extremity pitting edema Plan: We will place the patient under observation for treatment of a UTI. We will treat with IV ceftriaxone. We will obtain PT OT evaluation, social science professor consult for placement.
[2017-02-03] MEDS: Nystatin POWDER 30 GM BOTTLE TP SCH ×4 (01:07→21:25)
[2017-02-03] MEDS ORDERED: 0.9 % Sodium Chloride 500 ML IV SCH (03:45)
[2017-02-03] MEDS: *HR* Heparin 5,000 UNIT/ML VIAL SQ SCH ×3 (04:57→21:25)
[2017-02-03] MEDS ORDERED: 0.9 % Sodium Chloride 500 ML IV ONE (05:10)
[2017-02-03 08:01] LABS: Basophils % 0.6 %; Eosinophils # 0.3 K/mcL (0.0-0.6); Eosinophils % 4.8 %; Hematocrit 33.3 % (35.3-44.9); Hemoglobin 10.9 g/dL (11.5-15.4); Immature Granulocytes % 0.4 % (0-4); Lymphocytes # 1.3 K/mcL (0.6-4.6); Lymphocytes % 19.8 %; Mean Corpuscular HGB Conc 32.7 g/dL (31.6-35.5); Mean Corpuscular Hemoglobin 29.9 pg (28.0-33.3); Mean Corpuscular Volume 91.5 fL (83.0-100.0); Mean Platelet Volume 9.5 fL (9.4-12.4); Monocytes # 0.8 K/mcL (0.0-1.3); Monocytes % 12.2 %; Neutrophils # 4.2 K/mcL (1.6-8.9); Platelet Count 259 K/mcL (140-400); Red Blood Count 3.64 M/mcL (3.82-4.97); Red Cell Distribution Width 13.7 % (11.5-14.5); Segmented Neutrophils % 62.2 %
[2017-02-03 08:17] LABS: BUN/Creatinine Ratio 24 (6-26); Blood Urea Nitrogen 17 mg/dL (7-20); Calcium 9.4 mg/dL (8.6-10.8); Carbon Dioxide 26 mEq/L (19-29); Chloride 105 mEq/L (98-109); Glucose 98 mg/dL (70-99); Osmolality,Calculated 288 (280-300); Potassium 3.6 mEq/L (3.5-4.5); Sodium 138 mEq/L (136-145); eGFR For African Americans > 60 (> 60); eGFR For Non-African Americans > 60 (> 60)
[2017-02-03] MEDS ORDERED: 0.9 % Sodium Chloride 500 ML IVC ONE (08:25)
[2017-02-03] MEDS: Aspirin Enteric Coated 81 MG Tablet PO SCH (08:33)
[2017-02-03 12:03] LABS: Bilirubin,Total 0.4 mg/dL (0.2-1.2)
--- NOTE | 2017-02-03 17:02 | Internal Med Progress Note ---
Date of Encounter: 02/03/17 Time of Encounter: 16:05 - Assessment and plan (1) Failure to thrive Current Visit: Yes Status: Acute Assessment and plan: Per family, pt is unable to ambulate or care for herself at home. Per admission note, pt has fallen several times at home in the last few weeks. Pt adamantly denies this and states that she was having lower leg pain due to swelling, which made it hard for her to walk. PT recommends SNF for rehab. SS on board and waiting on [place] for placement. If there is a bed available, it will not be until the . Pt is aware and agreeable to SNF. Qualifiers: Failure to thrive age range: in adult Qualified Code(s): R62.7 - Adult failure to thrive (2) Falls Current Visit: Yes Status: Acute Assessment and plan: Pt denies falls and denies injury. Pt without visible, obvious injuries and denies pain, except to hernan feet from edema. CT head negative for intracranial abnormality. Plan as above. Chest X-Ray 02/02/17 19:05 IMPRESSION: No acute cardiopulmonary disease. D/ / Kory Hinojosa MD / Kory Hinojosa MD Interpreting Provider: Kory Hinojosa MD Head CT 02/02/17 19:06 IMPRESSION: No acute intracranial abnormality. 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 D/ / 02/02/2017 21:01:24 Gabriela Byers MD / alba Interpreting Provider: Gabriela Byers MD Qualifiers: Encounter type: initial encounter Qualified Code(s): W19.XXXA - Unspecified fall, initial encounter (3) Swelling of lower extremity Current Visit: Yes Status: Acute Assessment and plan: +1 non-pitting bilateral pedal and ankle edema. No pretibial edema noted. No history of CHF< lungs clear. CXR negative for acute pulmonary disease. Continue ARLEN hose Continue Lasix 40mg po daily Continue PT, fall precautions. (4) UTI (urinary tract infection) Current Visit: Yes Status: Acute Assessment and plan: Initial culture grows E. coli. Pt is being treated with Rocephin. Sensitivity is pending. Will adjust antibiotics accordingly. Pt has a hairston which will be d/cd Qualifiers: Urinary tract infection type: acute cystitis Hematuria presence: with hematuria Qualified Code(s): N30.01 - Acute cystitis with hematuria (5) Fungal infection of skin Current Visit: Yes Status: Acute Assessment and plan: Under pannus and under hernan breasts. Continue Nystatin powder and monitor for skin breakdown. (6) DVT prophylaxis Current Visit: Yes Status: Acute Assessment and plan: Continue Heparin SQ and ARLEN hose. - Time Spent With Patient less than 15 minutes - Subjective Interval history: Patient was seen and assessed at 1605. Patient is alert, awake, oriented 3. She denies falling at home. She says that she has no home health at this time, but has had physical therapy in her home approximately 2-3 years ago. She reports difficulty walking due to pain and swelling in her bilateral feet. Patient states that she wants to go back home after discharge. - Constitutional Vitals: Temp Pulse Resp BP Pulse Ox 97.8 F 74 16 118/75 96 02/03/17 15:55 02/03/17 15:55 02/03/17 15:55 02/03/17 15:55 02/03/17 15:55 General appearance: Present: cooperative, A&O X 3, pleasant, no acute distress - Head Head exam: Present: normal inspection - Eye Eye exam: Present: EOMI, normal appearance, conjuntiva pink. Absent: nystagmus - ENT ENT exam: Present: mucous membranes moist, normal exam, normal external ear exam - Neck Neck exam general surgery: Present: normal inspection. Absent: lymphadenopathy , tenderness - Respiratory Respiratory exam: Present: CTAB. Absent: chest wall tenderness, rales, rhonchi , stridor, wheezes - Cardiovascular Cardiovascular exam: Present: RRR, +S1, +S2. Absent: clicks, diastolic murmur, gallop, systolic murmur - GI/Abdominal GI/Abdominal exam: Present: distended, normal bowel sounds, soft. Absent: hernia, hepatomegaly, tenderness - Extremities Exam Extremities exam: Present: pedal edema, warm, radial pulses palpable and symmetrical. Absent: normal inspection, tenderness Additional comments: +1 nonpitting bilateral pedal edema. No pretibial edema. - Neurological Exam Neurological exam: Present: alert, oriented X3. Absent: facial droop, speech deficit - Skin Skin exam: Present: excoriation, normal color, warm. Absent: rash, urticaria Internal Medicine: Result - Labs CBC & Chem 7: 02/03/17 07:43 02/03/17 07:43 Labs: Short CBC 02/03/17 Range/Units 07:43 WBC 6.7 (4.3-11.1) K/mcL Hgb 10.9 L (11.5-15.4) g/dL Hct 33.3 L (35.3-44.9) % Plt Count 259 (140-400) K/mcL Neutrophils # 4.2 (1.6-8.9) K/mcL BMP 02/03/17 07:43 Sodium 138 Potassium 3.6 Chloride 105 Carbon Dioxide 26 BUN 17 Creatinine 0.71 Glucose 98 Calcium 9.4 Consult Discharge Plan - Plan Referrals: Katharine Sarabia MD [Primary Care Provider] -
[2017-02-04] MEDS: *HR* Heparin 5,000 UNIT/ML VIAL SQ SCH ×3 (05:43→20:57)
--- NOTE | 2017-02-04 07:58 | Electrocardiograph Report ---
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
[2017-02-04] MEDS: Aspirin Enteric Coated 81 MG Tablet PO SCH (09:53)
[2017-02-04] MEDS: Nystatin POWDER 30 GM BOTTLE TP SCH ×3 (09:53→21:00)
[2017-02-04] MEDS: Furosemide 40 MG TABLET PO SCH (09:53)
--- NOTE | 2017-02-04 15:42 | Internal Med Progress Note ---
Date of Encounter: 02/04/17 Time of Encounter: 14:35 - Assessment and plan (1) Failure to thrive Current Visit: Yes Status: Acute Assessment and plan: PT recommends SNF for rehab. SS on board and waiting on [place] for placement. If there is a bed available, she will discharge tomorrow. Pt is aware and agreeable to SNF. Qualifiers: Failure to thrive age range: in adult Qualified Code(s): R62.7 - Adult failure to thrive (2) Falls Current Visit: Yes Status: Acute Assessment and plan: Pt denies falls and denies injury. Pt without visible, obvious injuries and denies pain, except to hernan feet from edema. CT head negative for intracranial abnormality. Plan as above. Chest X-Ray 02/02/17 19:05 IMPRESSION: No acute cardiopulmonary disease. D/ / Kory Hinojosa MD / Kory Hinojosa MD Interpreting Provider: Kory Hinojosa MD Head CT 02/02/17 19:06 IMPRESSION: No acute intracranial abnormality. 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 D/ / 02/02/2017 21:01:24 Gabriela Byers MD / alba Interpreting Provider: Gabriela Byers MD Qualifiers: Encounter type: initial encounter Qualified Code(s): W19.XXXA - Unspecified fall, initial encounter (3) Swelling of lower extremity Current Visit: Yes Status: Acute Assessment and plan: +1 non-pitting bilateral pedal and ankle edema. No pretibial edema noted. No history of CHF, lungs clear. CXR negative for acute pulmonary disease. Continue ARLEN hose Continue Lasix 40mg po daily Continue PT, fall precautions. (4) UTI (urinary tract infection) Current Visit: Yes Status: Acute Assessment and plan: Final culture E. coli. Will switch pt over to Bactrim po. Qualifiers: Urinary tract infection type: acute cystitis Hematuria presence: with hematuria Qualified Code(s): N30.01 - Acute cystitis with hematuria (5) Fungal infection of skin Current Visit: Yes Status: Acute Assessment and plan: Under pannus and under hernan breasts. Continue Nystatin powder and monitor for skin breakdown. (6) DVT prophylaxis Current Visit: Yes Status: Acute Assessment and plan: Continue Heparin SQ and ARLEN hose. - Time Spent With Patient less than 15 minutes - Subjective Interval history: Pt was seen and assessed at 1435. She is alert, oriented x 3, speech is clear. She denies pain or needs. She is aware of possible ECF placement tomorrow at [place] and is ready to go. - Constitutional Vitals: Temp Pulse Resp BP Pulse Ox 97.6 F 73 16 125/77 98 02/04/17 11:35 02/04/17 11:35 02/04/17 11:35 02/04/17 11:35 02/04/17 11:35 General appearance: Present: cooperative, A&O X 3, pleasant, no acute distress, answers questions appropriately - Head Head exam: Present: normal inspection - Eye Eye exam: Present: EOMI, normal appearance, conjuntiva pink - ENT ENT exam: Present: mucous membranes moist, normal exam, normal external ear exam - Neck Neck exam general surgery: Present: normal inspection. Absent: lymphadenopathy , tenderness - Respiratory Respiratory exam: Present: CTAB. Absent: chest wall tenderness, rales, respiratory distress, rhonchi, stridor, wheezes - Cardiovascular Cardiovascular exam: Present: RRR, +S1, +S2. Absent: clicks, diastolic murmur, distant heart sounds, gallop, systolic murmur - GI/Abdominal GI/Abdominal exam: Present: normal bowel sounds, soft. Absent: distended, hepatomegaly, tenderness - Extremities Exam Extremities exam: Present: pedal edema, warm, radial pulses palpable and symmetrical. Absent: calf tenderness, tenderness - Neurological Exam Neurological exam: Present: alert, oriented X3, strengths equal and symetr throughout. Absent: altered, no focal deficits, facial droop, speech deficit - Skin Skin exam: Present: dry, intact, normal color, warm. Absent: rash, urticaria Internal Medicine: Result - Labs CBC & Chem 7: 02/03/17 07:43 02/03/17 07:43 Consult Discharge Plan - Plan Referrals: Katharine Sarabia MD [Primary Care Provider] -
[2017-02-04] MEDS: Sulfamethoxazole/Trimeth DS 1 EACH TABLET PO SCH (20:56)
[2017-02-05] MEDS: *HR* Heparin 5,000 UNIT/ML VIAL SQ SCH (05:19)
[2017-02-05 05:28] LABS: Basophils # 0.1 K/mcL (0.0-0.2); Basophils % 0.6 %; Eosinophils # 0.4 K/mcL (0.0-0.6); Eosinophils % 4.7 %; Hematocrit 31.6 % (35.3-44.9); Hemoglobin 10.2 g/dL (11.5-15.4); Immature Granulocytes % 0.9 % (0-4); Lymphocytes # 1.5 K/mcL (0.6-4.6); Lymphocytes % 19.3 %; Mean Corpuscular HGB Conc 32.3 g/dL (31.6-35.5); Mean Corpuscular Hemoglobin 29.3 pg (28.0-33.3); Mean Corpuscular Volume 90.8 fL (83.0-100.0); Mean Platelet Volume 9.1 fL (9.4-12.4); Monocytes # 0.7 K/mcL (0.0-1.3); Monocytes % 8.9 %; Neutrophils # 5.1 K/mcL (1.6-8.9); Platelet Count 304 K/mcL (140-400); Red Blood Count 3.48 M/mcL (3.82-4.97); Red Cell Distribution Width 13.7 % (11.5-14.5); Segmented Neutrophils % 65.6 %
[2017-02-05 05:39] LABS: BUN/Creatinine Ratio 23 (6-26); Blood Urea Nitrogen 17 mg/dL (7-20); Calcium 9.6 mg/dL (8.6-10.8); Carbon Dioxide 27 mEq/L (19-29); Chloride 104 mEq/L (98-109); Glucose 94 mg/dL (70-99); Osmolality,Calculated 283 (280-300); Potassium 3.8 mEq/L (3.5-4.5); Sodium 136 mEq/L (136-145); eGFR For African Americans > 60 (> 60); eGFR For Non-African Americans > 60 (> 60)
[2017-02-05] MEDS: Aspirin Enteric Coated 81 MG Tablet PO SCH (09:34)
[2017-02-05] MEDS: Furosemide 40 MG TABLET PO SCH (09:35)
[2017-02-05] MEDS: Sulfamethoxazole/Trimeth DS 1 EACH TABLET PO SCH (09:35)
[2017-02-05] MEDS: Nystatin POWDER 30 GM BOTTLE TP SCH (09:36)
[2017-02-05 11:05] VITALS: BP 94/60
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
--- NOTE | 2017-02-05 14:14 | Physician Discharge Referral ---
ExtendedCare Referral Info Transfer To: [facility] Provider in Charge after Transfer: PCP Institutional Level of Care: Skilled - Diagnosis (1) Failure to thrive Priority: Primary Status: Acute (2) Falls Priority: Secondary Status: Acute (3) Swelling of lower extremity Priority: Secondary Status: Chronic (4) UTI (urinary tract infection) Priority: Secondary Status: Acute (5) Fungal infection of skin Priority: Secondary Status: Acute (6) DVT prophylaxis Priority: Secondary Status: Acute Expected Duration of Placement: 2-3 weeks Prognosis: Good Aware of Diagnosis: Patient - Transfer Medications Prescriptions: Nystatin POWDER [Nystop] 1 appl TP TID #1 bottle Sulfamethoxazole/Trimeth DS [Bactrim Ds] 1 each PO BID #14 tab Home Medications: Aspirin [Lo-Dose Aspirin EC] 81 mg PO DAILY 08/29/16 [History] Docusate Sodium [Dok] 100 mg PO DAILY 08/29/16 [History] Ibuprofen [Motrin] 800 mg PO TID PRN 08/29/16 [History] Lisinopril [Zestril] 10 mg PO DAILY 08/29/16 [History] Multivitamin [One Daily Multivitamin] 1 tab PO DAILY 08/29/16 [History] [place]-3/Dha/Epa/Fish Oil [Fish Oil 1,000 mg Softgel] 1,000 mg PO DAILY 08/29/16 [History] Furosemide [Lasix] 20 mg PO DAILY 02/02/17 [History] Nystatin POWDER [Nystop] 1 appl TP TID #1 bottle 02/05/17 [Rx] Sulfamethoxazole/Trimeth DS [Bactrim Ds] 1 each PO BID #14 tab 02/05/17 [Rx] Allergies/Adverse Reactions: 3 Allergy/AdvReac Type Severity Reaction Status Date / Time No Known Allergies Allergy Verified 08/28/16 08:35 - Respiratory Orders Smoking Cessation: Smoking cessation has been advised. For more information, call the [place] Tobacco Quit Line at 8-285-TORQ-NOW. - Lab Orders Lab Orders: CBC, U/A, CXR yearly - Ancillary Orders May use pressure relief devices daily prn, May consult with Dentist, Client Server Developer, Casting Machine Set Up Operator PRN - Advance Directives Code Status: Full Code CERTIFICATION: I certify that the transfer of the above named patient to an Extended Care Facility is necessary for the continuing treatment of the diagnosis listed. The above information is true and accurate reflection of patient's current condition. Confidential - Redisclosure prohibited without a patient's written consent.
== END 2017-02-05 15:20 ==
LOC: 3BNU 18:25 → EMEROO 18:25 → 3BNU 22:02
PROVIDERS: ADMIT Internal Medicine; ATTEND Nurse Practitioner Family

== ENCOUNTER 2017-03-23 15:30 | Observation (INO) ==
--- NOTE | 2017-03-23 15:50 | Emergency Department Note ---
Disposition Clinical Impression: Altered level of consciousness UTI (urinary tract infection) Qualifiers: Urinary tract infection type: acute cystitis Hematuria presence: without hematuria Qualified Code(s): N30.00 - Acute cystitis without hematuria Sepsis Qualifiers: Sepsis type: sepsis due to unspecified organism Qualified Code(s): A41.9 - Sepsis, unspecified organism Disposition: Admitted As Inpatient Condition: Good Referrals: Katharine Sarabia MD [Primary Care Provider] - Forms: ED Satisfaction Letter Time of Disposition: 18:56 General Adult HPI - General Chief complaint: ED Syncope Stated complaint: syncopal episode, bradycardia Time Seen by Provider: 03/23/17 15:35 Source: patient, EMS Limitations: no limitations Nursing Notes Reviewed: Yes Vital Signs Reviewed: Yes - History of Present Illness HPI Narrative: Syncopal episode while at the group home. EMS reports a possible bradycardia in the 40s however she is not bradycardic when she gets here. States she has been normotensive. Seated and slumped over in her chair when she had her syncopal episode. Is currently being treated for a UTI. Pain Scale: 0 - Related Data Home Medications Medication Instructions Recorded Confirmed Docusate Sodium [Dok] 100 mg PO DAILY 08/29/16 03/23/17 Ibuprofen [Motrin] 800 mg PO TID PRN 08/29/16 03/23/17 Lisinopril [Zestril] 10 mg PO DAILY 08/29/16 03/23/17 Multivitamin [One Daily 1 tab PO DAILY 08/29/16 03/23/17 Multivitamin] [place]-3/Dha/Epa/Fish Oil [Fish Oil 1,000 mg PO DAILY 08/29/16 03/23/17 1,000 mg Softgel] Furosemide [Lasix] 20 mg PO DAILY 02/02/17 03/23/17 Aspirin 81 mg PO DAILY 03/23/17 03/23/17 levoFLOXacin [Levofloxacin] 500 mg PO DAILY 03/23/17 03/23/17 Previous Rx's Medication Instructions Recorded Nystatin POWDER [Nystop] 1 appl TP TID #1 bottle 02/05/17 Allergies Allergy/AdvReac Type Severity Reaction Status Date / Time No Known Allergies Allergy Verified 08/28/16 08:35 Limitations: ROS unobtainable due to patients medical condition Past Medical History - Past Medical History Medical history: Reports: arthritis, DVT, hyperlipidemia, hypertension Surgical history: Reports: knee replacement Psychiatric history: Reports: other - Social History Smoking Status: Never smoker Smokeless Tobacco Status: No Alcohol use: Reports: none Drug use: Reports: none Physical Exam - General Limitations: no limitations General appearance: alert, in no apparent distress - Head Head exam: atraumatic, normocephalic, normal inspection - Eye Eye exam: Present: normal appearance, PERRL, EOMI. Absent: scleral icterus - ENT ENT exam: normal exam, normal oropharynx, mucous membranes moist - Neck Neck exam: Present: normal inspection, full ROM, trachea midline - Chest Chest inspection: Present: normal inspection, symmetric chest wall rise. Absent : tenderness, rash - Respiratory Respiratory exam: Present: normal lung sounds bilaterally. Absent: respiratory distress, accessory muscle use - Cardiovascular Cardiovascular exam: Present: regular rate, normal rhythm, normal heart sounds - Abdominal Exam Abdominal exam: Present: soft, Non-Tender, normal bowel sounds. Absent: tenderness, distention, guarding, rebound, rigidity, organomegaly - Extremities Exam Extremities exam: Present: normal inspection, full ROM, normal capillary refill. Absent: tenderness, pedal edema - Back Exam Back exam: Present: normal inspection, full ROM. Absent: tenderness - Neurological Exam Neurological exam: Present: alert - Psychiatric Psychiatric exam: Present: normal affect, normal mood - Skin Skin exam: Present: warm, dry, intact, normal color. Absent: rash, cyanosis, diaphoresis Course Course Narrative: Female patient presenting to emergency department. She had a single episode while at the group home. Patient is confused at this time and unaware why she is here. She reports a different story than what was presented by EMS. She has been seen recently and is being treated for a UTI. She is pleasantly confused. Her lung sounds are clear heart sounds are normal. Her abdomen is soft and nontender on exam. She has no complaints currently. We will get a UA as well as a basic lab workup on patient. I anticipate admission for urosepsis. She is not hypotensive while here. We will also get a CT of patient 's head. - Reevaluation(s) Reevaluation #1: Patient workup shows UTI. We will start patient on antibiotics. Due to her syncope and altered level consciousness we will admit her for urosepsis. - Consultations Consultation #1: Patient signed out to the hospitalist. They accepted patient in stable condition. Vital Signs Temperature 97.6 F 03/23/17 15:34 Pulse Rate 80 03/23/17 15:34 Respiratory Rate 22 03/23/17 15:34 Blood Pressure 107/56 03/23/17 15:34 O2 Sat by Pulse Oximetry 96 03/23/17 15:34 Temperature 97.6 F 03/23/17 15:34 Pulse Rate 67 03/23/17 16:37 Respiratory Rate 22 03/23/17 15:34 Blood Pressure 120/51 03/23/17 16:37 O2 Sat by Pulse Oximetry 96 03/23/17 16:37 Oxygen Delivery Oxygen Delivery Room Air Medical Decision Making - Medical Records Medical records reviewed: Yes I reviewed the patient's medical records. - Lab Data Lab results reviewed: Yes I reviewed the patient's lab results. Result diagrams: 03/23/17 16:43 03/23/17 16:22 Lab Results 03/23/17 03/23/17 03/23/17 Range/Units 15:45 16:22 16:22 WBC (4.3-11.1) K/mcL RBC (3.82-4.97) M/mcL Hgb (11.5-15.4) g/dL Hct (35.3-44.9) % MCV (83.0-100.0) fL MCH (28.0-33.3) pg MCHC (31.6-35.5) g/dL RDW (11.5-14.5) % Plt Count (140-400) K/mcL MPV (9.4-12.4) fL Immature Gran % (0-4) % Seg Neutrophils % % Lymphocytes % % Monocytes % % Eosinophils % % Basophils % % Neutrophils # (1.6-8.9) K/mcL Lymphocytes # (0.6-4.6) K/mcL Monocytes # (0.0-1.3) K/mcL Eosinophils # (0.0-0.6) K/mcL Basophils # (0.0-0.2) K/mcL PT 11.9 (9.4-12.1) Seconds INR 1.1 APTT 27.3 (26.0-36.0) Seconds Sodium (136-145) mEq/L Potassium (3.5-4.5) mEq/L Chloride (98-109) mEq/L Carbon Dioxide (19-29) mEq/L BUN (7-20) mg/dL Creatinine (0.57-1.11) mg/dL Est GFR ( Amer) (> 60) Est GFR (Non-Af Amer) (> 60) BUN/Creatinine Ratio (6-26) Glucose (70-99) mg/dL POC Glucose 93 H (58-89) Calculated Osmolality (280-300) Calcium (8.6-10.8) mg/dL Troponin I (0-0.03) ng/mL Urine Color (Yellow) Urine Clarity (Clear) Urine pH (5.0-8.0) pH Units Ur Specific [place] (1.010-1.025) Urine Protein (Neg-Trace) mg/dL Urine Glucose (UA) (Normal) mg/dL Urine Ketones (Negative) mg/dL Urine Blood (Negative) Urine Nitrite (Negative) Urine Bilirubin (Negative) Urine Urobilinogen (Normal) mg/dL Ur Leukocyte Esterase (Negative) Urine Microscopic RBC (0-3) per hpf Urine Microscopic WBC (0-3) per hpf Ur Squamous Epith Cells (None-Few) per lpf Urine Bacteria (None-Few) per hpf Hyaline Casts (None-Few) per lpf Blood Type A NEGATIVE Antibody Screen NEGATIVE 03/23/17 03/23/17 03/23/17 Range/Units 16:22 16:22 16:43 WBC 12.6 H D (4.3-11.1) K/mcL RBC 4.07 (3.82-4.97) M/mcL Hgb 12.1 (11.5-15.4) g/dL Hct 38.0 (35.3-44.9) % MCV 93.4 (83.0-100.0) fL MCH 29.7 (28.0-33.3) pg MCHC 31.8 (31.6-35.5) g/dL RDW 13.5 (11.5-14.5) % Plt Count 279 (140-400) K/mcL MPV 9.1 L (9.4-12.4) fL Immature Gran % 0.8 (0-4) % Seg Neutrophils % 71.5 % Lymphocytes % 15.6 % Monocytes % 9.2 % Eosinophils % 2.3 % Basophils % 0.6 % Neutrophils # 9.0 H (1.6-8.9) K/mcL Lymphocytes # 2.0 (0.6-4.6) K/mcL Monocytes # 1.2 (0.0-1.3) K/mcL Eosinophils # 0.3 (0.0-0.6) K/mcL Basophils # 0.1 (0.0-0.2) K/mcL PT (9.4-12.1) Seconds INR APTT (26.0-36.0) Seconds Sodium 138 (136-145) mEq/L Potassium 5.0 H (3.5-4.5) mEq/L Chloride 107 (98-109) mEq/L Carbon Dioxide 22 (19-29) mEq/L BUN 30 H (7-20) mg/dL Creatinine 1.13 H (0.57-1.11) mg/dL Est GFR ( Amer) 56 L (> 60) Est GFR (Non-Af Amer) 46 L (> 60) BUN/Creatinine Ratio 27 H (6-26) Glucose 104 H (70-99) mg/dL POC Glucose (58-89) Calculated Osmolality 292 (280-300) Calcium 10.8 (8.6-10.8) mg/dL Troponin I 0.00 (0-0.03) ng/mL Urine Color (Yellow) Urine Clarity (Clear) Urine pH (5.0-8.0) pH Units Ur Specific [place] (1.010-1.025) Urine Protein (Neg-Trace) mg/dL Urine Glucose (UA) (Normal) mg/dL Urine Ketones (Negative) mg/dL Urine Blood (Negative) Urine Nitrite (Negative) Urine Bilirubin (Negative) Urine Urobilinogen (Normal) mg/dL Ur Leukocyte Esterase (Negative) Urine Microscopic RBC (0-3) per hpf Urine Microscopic WBC (0-3) per hpf Ur Squamous Epith Cells (None-Few) per lpf Urine Bacteria (None-Few) per hpf Hyaline Casts (None-Few) per lpf Blood Type Antibody Screen 03/23/17 Range/Units 18:50 WBC (4.3-11.1) K/mcL RBC (3.82-4.97) M/mcL Hgb (11.5-15.4) g/dL Hct (35.3-44.9) % MCV (83.0-100.0) fL MCH (28.0-33.3) pg MCHC (31.6-35.5) g/dL RDW (11.5-14.5) % Plt Count (140-400) K/mcL MPV (9.4-12.4) fL Immature Gran % (0-4) % Seg Neutrophils % % Lymphocytes % % Monocytes % % Eosinophils % % Basophils % % Neutrophils # (1.6-8.9) K/mcL Lymphocytes # (0.6-4.6) K/mcL Monocytes # (0.0-1.3) K/mcL Eosinophils # (0.0-0.6) K/mcL Basophils # (0.0-0.2) K/mcL PT (9.4-12.1) Seconds INR APTT (26.0-36.0) Seconds Sodium (136-145) mEq/L Potassium (3.5-4.5) mEq/L Chloride (98-109) mEq/L Carbon Dioxide (19-29) mEq/L BUN (7-20) mg/dL Creatinine (0.57-1.11) mg/dL Est GFR ( Amer) (> 60) Est GFR (Non-Af Amer) (> 60) BUN/Creatinine Ratio (6-26) Glucose (70-99) mg/dL POC Glucose (58-89) Calculated Osmolality (280-300) Calcium (8.6-10.8) mg/dL Troponin I (0-0.03) ng/mL Urine Color Yellow (Yellow) Urine Clarity Clear (Clear) Urine pH 5.0 (5.0-8.0) pH Units Ur Specific [place] 1.016 (1.010-1.025) Urine Protein Negative (Neg-Trace) mg/dL Urine Glucose (UA) Normal (Normal) mg/dL Urine Ketones Negative (Negative) mg/dL Urine Blood Negative (Negative) Urine Nitrite Negative (Negative) Urine Bilirubin Negative (Negative) Urine Urobilinogen Normal (Normal) mg/dL Ur Leukocyte Esterase Trace H (Negative) Urine Microscopic RBC 0-3 (0-3) per hpf Urine Microscopic WBC 0-3 (0-3) per hpf Ur Squamous Epith Cells Many H (None-Few) per lpf Urine Bacteria None Seen (None-Few) per hpf Hyaline Casts None Seen (None-Few) per lpf Blood Type Antibody Screen - Radiology Data Radiology results reviewed: Yes I reviewed the patient's radiology results. Chest X-Ray 03/23/17 15:50 IMPRESSION: No acute cardiopulmonary disease. D/ / Kory Hinojosa MD / Kory Hinojosa MD Interpreting Provider: Kory Hinojosa MD Head CT 03/23/17 16:15 IMPRESSION: No acute intracranial abnormality. D/ / Kristian Aranda MD / Kristian Aranda MD Interpreting Provider: Kristian Aranda MD - EKG Data EKG #1 EKG attestation: Yes I reviewed and interpreted this EKG. EKG results narrative: Normal sinus rhythm at a rate of 94. NE intervals 211. Frustration is 78. QT is 338. QTC is 389. No signs of acute ischemia. No significant change from previous EKG dated 11/29/2016. Attestation Statement - Attestation Attestation: Patient was seen with resident physician. I reviewed the history, physical, assessment and plan, and agree with the findings. I also personally evaluated this patient and had mioa-ri-hpal time with this patient. 81-year-old female presents to the emergency department after syncopal episode. Patient is in a group home, and apparently had a syncopal episode which prompted her visit to the ED. Patient is confused on arrival and when asked why she is here she said her pants are too tight. She denies any other symptoms but her answers are unreliable. On exam vital signs are stable. ENT is unremarkable. Heart and lungs are both normal abdomen is soft and nontender. Extremities are unremarkable. Neurologically patient is confused but answers all questions and moves all extremities. She has no focal deficits. ED course we will do syncope and weakness workup. Once done will disposition the patient likely for admission. Workup was essentially negative, patient will need further workup and evaluation personable episode. Head CT scan revealed no acute abnormalities. EKG showed no acute changes. Discussed case with hospitalist to arrange for admission. Hemodynamically she remained stable. Agree with the resident physician assessment and plan.
[2017-03-23 16:37] LABS: INR 1.1; Prothrombin Time 11.9 Seconds (9.4-12.1)
[2017-03-23 16:39] LABS: Activated Partial Thrombo Time 27.3 Seconds (26.0-36.0)
[2017-03-23 16:47] LABS: Calcium 10.8 mg/dL (8.6-10.8)
[2017-03-23 16:57] LABS: Basophils # 0.1 K/mcL (0.0-0.2); Basophils % 0.6 %; Eosinophils # 0.3 K/mcL (0.0-0.6); Eosinophils % 2.3 %; Hemoglobin 12.1 g/dL (11.5-15.4); Immature Granulocytes % 0.8 % (0-4); Lymphocytes % 15.6 %; Mean Corpuscular HGB Conc 31.8 g/dL (31.6-35.5); Mean Corpuscular Hemoglobin 29.7 pg (28.0-33.3); Mean Corpuscular Volume 93.4 fL (83.0-100.0); Mean Platelet Volume 9.1 fL (9.4-12.4); Monocytes # 1.2 K/mcL (0.0-1.3); Monocytes % 9.2 %; Platelet Count 279 K/mcL (140-400); Red Blood Count 4.07 M/mcL (3.82-4.97); Red Cell Distribution Width 13.5 % (11.5-14.5); Segmented Neutrophils % 71.5 %
[2017-03-23 18:55] LABS: Bilirubin,Urine Negative (Negative); Blood,Urine Negative (Negative); Clarity,Urine Clear (Clear); Color,Urine Yellow (Yellow); Glucose,Urine (UA) Normal (Normal); Ketones,Urine Negative (Negative); Leukocyte Esterase,Urine Trace (Negative); Nitrite,Urine Negative (Negative); Protein,Urine Negative (Neg-Trace); Specific Gravity,Urine 1.016 (1.010-1.025); Urobilinogen,Urine Normal (Normal)
[2017-03-23 18:56] LABS: Bacteria,Urine None Seen per hpf (None-Few); Hyaline Casts,Urine None Seen per lpf (None-Few); RBC,Urine 0-3 per hpf (0-3); Squamous Epithelial Cell,Urine Many per lpf (None-Few); WBC,Urine 0-3 per hpf (0-3)
--- NOTE | 2017-03-23 19:22 | Emergency Department Note ---
Disposition Clinical Impression: Altered level of consciousness UTI (urinary tract infection) Qualifiers: Urinary tract infection type: acute cystitis Hematuria presence: without hematuria Qualified Code(s): N30.00 - Acute cystitis without hematuria Sepsis Qualifiers: Sepsis type: sepsis due to unspecified organism Qualified Code(s): A41.9 - Sepsis, unspecified organism Disposition: Admitted As Inpatient Condition: Good Referrals: Katharine Sarabia MD [Primary Care Provider] - Forms: ED Satisfaction Letter General Adult HPI - General Chief complaint: ED Syncope Stated complaint: syncopal episode, bradycardia Time Seen by Provider: 03/23/17 15:35 Source: patient, EMS Limitations: no limitations - History of Present Illness Pain Scale: 0 - Related Data Home Medications Medication Instructions Recorded Confirmed Docusate Sodium [Dok] 100 mg PO DAILY 08/29/16 03/23/17 Ibuprofen [Motrin] 800 mg PO TID PRN 08/29/16 03/23/17 Lisinopril [Zestril] 10 mg PO DAILY 08/29/16 03/23/17 Multivitamin [One Daily 1 tab PO DAILY 08/29/16 03/23/17 Multivitamin] [place]-3/Dha/Epa/Fish Oil [Fish Oil 1,000 mg PO DAILY 08/29/16 03/23/17 1,000 mg Softgel] Furosemide [Lasix] 20 mg PO DAILY 02/02/17 03/23/17 Aspirin 81 mg PO DAILY 03/23/17 03/23/17 levoFLOXacin [Levofloxacin] 500 mg PO DAILY 03/23/17 03/23/17 Previous Rx's Medication Instructions Recorded Nystatin POWDER [Nystop] 1 appl TP TID #1 bottle 02/05/17 Allergies Allergy/AdvReac Type Severity Reaction Status Date / Time No Known Allergies Allergy Verified 08/28/16 08:35 Past Medical History - Past Medical History Medical history: Reports: arthritis, DVT, hyperlipidemia, hypertension Surgical history: Reports: knee replacement Psychiatric history: Reports: other - Social History Smoking Status: Never smoker Smokeless Tobacco Status: No Alcohol use: Reports: none Drug use: Reports: none Physical Exam - General Limitations: no limitations General appearance: alert, in no apparent distress Course Vital Signs Temperature 97.6 F 03/23/17 15:34 Pulse Rate 80 03/23/17 15:34 Respiratory Rate 22 03/23/17 15:34 Blood Pressure 107/56 03/23/17 15:34 O2 Sat by Pulse Oximetry 96 03/23/17 15:34 Temperature 97.6 F 03/23/17 15:34 Pulse Rate 67 03/23/17 16:37 Respiratory Rate 22 03/23/17 15:34 Blood Pressure 120/51 03/23/17 16:37 O2 Sat by Pulse Oximetry 96 03/23/17 16:37 Oxygen Delivery Oxygen Delivery Room Air Medical Decision Making - Lab Data Result diagrams: 03/23/17 16:43 03/23/17 16:22 Lab Results 03/23/17 03/23/17 03/23/17 Range/Units 15:45 16:22 16:22 WBC (4.3-11.1) K/mcL RBC (3.82-4.97) M/mcL Hgb (11.5-15.4) g/dL Hct (35.3-44.9) % MCV (83.0-100.0) fL MCH (28.0-33.3) pg MCHC (31.6-35.5) g/dL RDW (11.5-14.5) % Plt Count (140-400) K/mcL MPV (9.4-12.4) fL Immature Gran % (0-4) % Seg Neutrophils % % Lymphocytes % % Monocytes % % Eosinophils % % Basophils % % Neutrophils # (1.6-8.9) K/mcL Lymphocytes # (0.6-4.6) K/mcL Monocytes # (0.0-1.3) K/mcL Eosinophils # (0.0-0.6) K/mcL Basophils # (0.0-0.2) K/mcL PT 11.9 (9.4-12.1) Seconds INR 1.1 APTT 27.3 (26.0-36.0) Seconds Sodium (136-145) mEq/L Potassium (3.5-4.5) mEq/L Chloride (98-109) mEq/L Carbon Dioxide (19-29) mEq/L BUN (7-20) mg/dL Creatinine (0.57-1.11) mg/dL Est GFR ( Amer) (> 60) Est GFR (Non-Af Amer) (> 60) BUN/Creatinine Ratio (6-26) Glucose (70-99) mg/dL POC Glucose 93 H (58-89) Calculated Osmolality (280-300) Calcium (8.6-10.8) mg/dL Troponin I (0-0.03) ng/mL Urine Color (Yellow) Urine Clarity (Clear) Urine pH (5.0-8.0) pH Units Ur Specific [place] (1.010-1.025) Urine Protein (Neg-Trace) mg/dL Urine Glucose (UA) (Normal) mg/dL Urine Ketones (Negative) mg/dL Urine Blood (Negative) Urine Nitrite (Negative) Urine Bilirubin (Negative) Urine Urobilinogen (Normal) mg/dL Ur Leukocyte Esterase (Negative) Urine Microscopic RBC (0-3) per hpf Urine Microscopic WBC (0-3) per hpf Ur Squamous Epith Cells (None-Few) per lpf Urine Bacteria (None-Few) per hpf Hyaline Casts (None-Few) per lpf Blood Type A NEGATIVE Antibody Screen NEGATIVE 03/23/17 03/23/17 03/23/17 Range/Units 16:22 16:22 16:43 WBC 12.6 H D (4.3-11.1) K/mcL RBC 4.07 (3.82-4.97) M/mcL Hgb 12.1 (11.5-15.4) g/dL Hct 38.0 (35.3-44.9) % MCV 93.4 (83.0-100.0) fL MCH 29.7 (28.0-33.3) pg MCHC 31.8 (31.6-35.5) g/dL RDW 13.5 (11.5-14.5) % Plt Count 279 (140-400) K/mcL MPV 9.1 L (9.4-12.4) fL Immature Gran % 0.8 (0-4) % Seg Neutrophils % 71.5 % Lymphocytes % 15.6 % Monocytes % 9.2 % Eosinophils % 2.3 % Basophils % 0.6 % Neutrophils # 9.0 H (1.6-8.9) K/mcL Lymphocytes # 2.0 (0.6-4.6) K/mcL Monocytes # 1.2 (0.0-1.3) K/mcL Eosinophils # 0.3 (0.0-0.6) K/mcL Basophils # 0.1 (0.0-0.2) K/mcL PT (9.4-12.1) Seconds INR APTT (26.0-36.0) Seconds Sodium 138 (136-145) mEq/L Potassium 5.0 H (3.5-4.5) mEq/L Chloride 107 (98-109) mEq/L Carbon Dioxide 22 (19-29) mEq/L BUN 30 H (7-20) mg/dL Creatinine 1.13 H (0.57-1.11) mg/dL Est GFR ( Amer) 56 L (> 60) Est GFR (Non-Af Amer) 46 L (> 60) BUN/Creatinine Ratio 27 H (6-26) Glucose 104 H (70-99) mg/dL POC Glucose (58-89) Calculated Osmolality 292 (280-300) Calcium 10.8 (8.6-10.8) mg/dL Troponin I 0.00 (0-0.03) ng/mL Urine Color (Yellow) Urine Clarity (Clear) Urine pH (5.0-8.0) pH Units Ur Specific [place] (1.010-1.025) Urine Protein (Neg-Trace) mg/dL Urine Glucose (UA) (Normal) mg/dL Urine Ketones (Negative) mg/dL Urine Blood (Negative) Urine Nitrite (Negative) Urine Bilirubin (Negative) Urine Urobilinogen (Normal) mg/dL Ur Leukocyte Esterase (Negative) Urine Microscopic RBC (0-3) per hpf Urine Microscopic WBC (0-3) per hpf Ur Squamous Epith Cells (None-Few) per lpf Urine Bacteria (None-Few) per hpf Hyaline Casts (None-Few) per lpf Blood Type Antibody Screen 03/23/17 Range/Units 18:50 WBC (4.3-11.1) K/mcL RBC (3.82-4.97) M/mcL Hgb (11.5-15.4) g/dL Hct (35.3-44.9) % MCV (83.0-100.0) fL MCH (28.0-33.3) pg MCHC (31.6-35.5) g/dL RDW (11.5-14.5) % Plt Count (140-400) K/mcL MPV (9.4-12.4) fL Immature Gran % (0-4) % Seg Neutrophils % % Lymphocytes % % Monocytes % % Eosinophils % % Basophils % % Neutrophils # (1.6-8.9) K/mcL Lymphocytes # (0.6-4.6) K/mcL Monocytes # (0.0-1.3) K/mcL Eosinophils # (0.0-0.6) K/mcL Basophils # (0.0-0.2) K/mcL PT (9.4-12.1) Seconds INR APTT (26.0-36.0) Seconds Sodium (136-145) mEq/L Potassium (3.5-4.5) mEq/L Chloride (98-109) mEq/L Carbon Dioxide (19-29) mEq/L BUN (7-20) mg/dL Creatinine (0.57-1.11) mg/dL Est GFR ( Amer) (> 60) Est GFR (Non-Af Amer) (> 60) BUN/Creatinine Ratio (6-26) Glucose (70-99) mg/dL POC Glucose (58-89) Calculated Osmolality (280-300) Calcium (8.6-10.8) mg/dL Troponin I (0-0.03) ng/mL Urine Color Yellow (Yellow) Urine Clarity Clear (Clear) Urine pH 5.0 (5.0-8.0) pH Units Ur Specific [place] 1.016 (1.010-1.025) Urine Protein Negative (Neg-Trace) mg/dL Urine Glucose (UA) Normal (Normal) mg/dL Urine Ketones Negative (Negative) mg/dL Urine Blood Negative (Negative) Urine Nitrite Negative (Negative) Urine Bilirubin Negative (Negative) Urine Urobilinogen Normal (Normal) mg/dL Ur Leukocyte Esterase Trace H (Negative) Urine Microscopic RBC 0-3 (0-3) per hpf Urine Microscopic WBC 0-3 (0-3) per hpf Ur Squamous Epith Cells Many H (None-Few) per lpf Urine Bacteria None Seen (None-Few) per hpf Hyaline Casts None Seen (None-Few) per lpf Blood Type Antibody Screen Attestation Statement - Attestation Attestation: Care assumed from Dr. Sterling at 7 PM pending planned admission. Patient had a syncopal event. History of dementia. Comes from the extended care facility. Labs reviewed by me. EKG reviewed by me. Patient sleeping at the time of my exam
[2017-03-23] MEDS ORDERED: 0.9 % Sodium Chloride 1,000 ML IVC SCH (23:45)
--- NOTE | 2017-03-24 00:01 | Internal Med History&Physical ---
Date of Encounter: 03/24/17 Time of Encounter: 23:50 Assessment and Plan (1) Syncope Current visit: Yes Status: Acute Etiology unclear Suspect vasovagal or orthostasis. Will hydrate. hold blood pressure medications. Check orthostatic vital signs. I would also checks to foresee that given the bout of diarrhea on arrival to hospital. Qualifiers: Qualified Code(s): R55 - Syncope and collapse (2) UTI (urinary tract infection) Current visit: No Status: Acute Continue Levaquin. Urine analysis available in chart showing 15 to 30 white blood cells with culture showing sensitivity to levofloxacin Qualifiers: Qualified Code(s): N39.0 - Urinary tract infection, site not specified; R31.9 - Hematuria, unspecified; R31.9 - Hematuria, unspecified (3) KAR (acute kidney injury) Current visit: Yes Status: Acute hydrate Internal Medicine - H&P: HPI Chief complaint: syncope History of present illness: Ms. Humphrey is a 81 year old female with past medical history of hypertension, dyslipidemia is currently being treated with Levaquin for urinary tract infection presents to the emergency room today after syncopal episode in the care home. Was also reported that the patient was bradycardic during this event. Patient is unable to provide history. She does not recall circumstances of the fall. No obvious focal weakness tingling numbness or any extremity facial symmetry or speech slenderness. Patient had a large bowel movement during my interview. She denies diarrhea the past days. She also has dementia and history is very limited. Past Med Surg Social Fam HX - Past Medical History Medical history: arthritis, DVT, hyperlipidemia, hypertension Psychiatric history: other - Past Surgical History Surgical History: knee replacement - Social History Smoking Status: Never smoker Smokeless Tobacco Status: No Alcohol use: none Drug use: none - Family History Father Adopted: No Living Status: Hx Family Cardiac Disorders: Yes (NM) Hx Family Respiratory Disorders: No Hx Family Cancer: No Hx Family GI Disorders: No Hx Family Endocrine Disorder: No Hx Family Neuromuscular Disorders: No Hx Family Neurologic Disorders: No Hx Family HEENT Disorders: No Hx Family Autoimmune Disorders: No Mother Adopted: No Living Status: Hx Family Cardiac Disorders: Yes Hx Family Respiratory Disorders: No Hx Family Cancer: No Hx Family GI Disorders: No Hx Family Endocrine Disorder: Yes (Diabetes) Hx Family Neuromuscular Disorders: No Hx Family Neurologic Disorders: No Hx Family HEENT Disorders: No Hx Family Autoimmune Disorders: No Internal Medicine - H&P: Meds Docusate Sodium [Dok] 100 mg PO DAILY 08/29/16 [History] Ibuprofen [Motrin] 800 mg PO TID PRN 08/29/16 [History] Lisinopril [Zestril] 10 mg PO DAILY 08/29/16 [History] Multivitamin [One Daily Multivitamin] 1 tab PO DAILY 08/29/16 [History] [place]-3/Dha/Epa/Fish Oil [Fish Oil 1,000 mg Softgel] 1,000 mg PO DAILY 08/29/16 [History] Furosemide [Lasix] 20 mg PO DAILY 02/02/17 [History] Nystatin POWDER [Nystop] 1 appl TP TID #1 bottle 02/05/17 [Rx] Aspirin 81 mg PO DAILY 03/23/17 [History] levoFLOXacin [Levofloxacin] 500 mg PO DAILY 03/23/17 [History] 3 Allergy/AdvReac Type Severity Reaction Status Date / Time No Known Allergies Allergy Verified 08/28/16 08:35 All Systems PM: A 10-system review of systems was performed and is negative for pertinent findings except as documented above in the HPI. Review of systems: 10 point review of systems is negative except for HPI - Constitutional Vitals: Temp Pulse Resp BP Pulse Ox 97.7 F 57 15 159/82 100 03/23/17 23:40 03/23/17 23:40 03/23/17 23:40 03/23/17 23:40 03/23/17 23:40 Exam: Gen.: patient is alert not in distress. Cardiac: normal S1 S2 no additional sounds or murmurs chest: fair air entry. no active wheezing. No crackles or bronchial breathing. abdomen: soft nontender nondistended normal bowel sounds neuro: no focal deficit Internal Med - H&P Results - Labs CBC & Chem 7: 03/23/17 16:43 03/23/17 16:22
[2017-03-24] MEDS ORDERED: 0.9 % Sodium Chloride 1,000 ML IVC ONE (00:14)
[2017-03-24] MEDS: *HR* Morphine 2 MG/ML SYRINGE IVP PRN (00:25)
[2017-03-24] MEDS: Ondansetron 4 MG/2 ML VIAL IVP PRN (03:10)
[2017-03-24] MEDS: *HR* Heparin 5,000 UNIT/ML VIAL SQ SCH ×2 (05:35→17:54)
[2017-03-24 05:59] LABS: Basophils % 0.2 %; Eosinophils # 0.1 K/mcL (0.0-0.6); Eosinophils % 0.6 %; Hemoglobin 11.8 g/dL (11.5-15.4); Immature Granulocytes % 0.3 % (0-4); Lymphocytes # 1.2 K/mcL (0.6-4.6); Mean Corpuscular HGB Conc 32.8 g/dL (31.6-35.5); Mean Corpuscular Hemoglobin 29.9 pg (28.0-33.3); Mean Corpuscular Volume 91.1 fL (83.0-100.0); Mean Platelet Volume 9.2 fL (9.4-12.4); Monocytes # 0.8 K/mcL (0.0-1.3); Monocytes % 5.7 %; Neutrophils # 12.3 K/mcL (1.6-8.9); Platelet Count 279 K/mcL (140-400); Red Blood Count 3.95 M/mcL (3.82-4.97); Red Cell Distribution Width 13.4 % (11.5-14.5); Segmented Neutrophils % 85.2 %
[2017-03-24] MEDS ORDERED: Famotidine 20 MG/2 ML VIAL IVP SCH (06:00)
[2017-03-24 06:15] LABS: BUN/Creatinine Ratio 38 (6-26); Blood Urea Nitrogen 29 mg/dL (7-20); Calcium 9.8 mg/dL (8.6-10.8); Carbon Dioxide 21 mEq/L (19-29); Chloride 112 mEq/L (98-109); Glucose 103 mg/dL (70-99); Magnesium 1.8 mg/dL (1.6-2.6); Osmolality,Calculated 298 (280-300); Potassium 4.4 mEq/L (3.5-4.5); Sodium 141 mEq/L (136-145); eGFR For African Americans > 60 (> 60); eGFR For Non-African Americans > 60 (> 60)
[2017-03-24] MEDS ORDERED: levoFLOXacin 500 MG TABLET PO SCH (09:00)
[2017-03-24] MEDS: Aspirin 81 MG TAB.CHEW PO SCH (09:03)
[2017-03-24] MEDS: Nystatin POWDER 30 GM BOTTLE TP SCH ×2 (09:03→14:28)
--- NOTE | 2017-03-24 11:39 | Internal Med Progress Note ---
<Italo Chatterjee T - Last Filed: 03/24/17 14:08> Date of Encounter: 03/24/17 - Constitutional Vitals: Temp Pulse Resp BP Pulse Ox 98.2 F 77 16 136/84 97 03/24/17 11:11 03/24/17 11:11 03/24/17 11:11 03/24/17 11:11 03/24/17 11:11 Internal Medicine: Result - Labs CBC & Chem 7: 03/24/17 05:47 03/24/17 05:47 Labs: Short CBC 03/24/17 Range/Units 05:47 WBC 14.4 H (4.3-11.1) K/mcL Hgb 11.8 (11.5-15.4) g/dL Hct 36.0 (35.3-44.9) % Plt Count 279 (140-400) K/mcL Neutrophils # 12.3 H (1.6-8.9) K/mcL BMP 03/24/17 05:47 Sodium 141 Potassium 4.4 Chloride 112 H Carbon Dioxide 21 BUN 29 H Creatinine 0.77 Glucose 103 H Calcium 9.8 - ABG Interpretation ABG results: PT/INR, D-dimer PT 11.9 Seconds (9.4-12.1) 03/23/17 16:22 Consult Discharge Plan - Plan Referrals: Katharine Sarabia MD [Primary Care Provider] - - Attending Attestation I have independently seen and examined this patient on 03/24/17, I have discussed plan of care with the resident physician 81 M, resident of [facility] with dementia, admitted following syncope, possibly secondary to orthostasis She denies new complains, she does have visual hallucinations , without behavioural disturbance. At baseline, she is oriented to person only. Orthostatic vital signs present with tachycardia on standing from sitting position Physical exam: VSS, not in distress, moves all extremities, speaks fluently but pleasantly confused, chest is CTAB, no added sounds, abdomen is soft and not tender. She has no pedal edema Labs and imaging reviewed. Leukocytosis . Chem at baseline A/P Syncope-Obtain full syncope work up including ECHO and Carotid dopler. continue to hold antihypertensives, d/c IVF hydration, encourage liberal fluid intake. UTI: Continue Levaquin. Patient is not septic on admission and is not septic -she has no fever or hypothermia, she has no tachycardia. She has a normal BP. Her leukocytosis is due to UTI, which she is receiving antibiotics for rest of details as in resident physician's documentation <Vandana Collado - Last Filed: 03/24/17 16:12> Date of Encounter: 03/24/17 Time of Encounter: 10:00 - Assessment and plan (1) Syncope Current Visit: Yes Status: Acute Assessment and plan: Patient's etiology of syncope is unclear. Suspect vasovagal force orthostasis. -Patient's orthostatics today were positive with increased heart rate greater than 10 upon standing. -We will continue to hold blood pressure medications. We will resume lisinopril at half of her normal dosage at 2.5 once her blood pressure rebounds over 150. -We have ordered a carotid duplex and echocardiogram as patient has no history of these in our system. -We have discontinued her Motrin. -Patient will be discharged home tomorrow with lower dose of blood pressure medication provided her ultrasound and duplex study was normal. Qualifiers: Syncope type: unspecified Qualified Code(s): R55 - Syncope and collapse (2) UTI (urinary tract infection) Current Visit: No Status: Acute Assessment and plan: Continue Levaquin. Urine culture in chart show sensitivity to Levaquin. Qualifiers: (3) Hypertension Current Visit: No Status: Chronic Assessment and plan: Patient has been normotensive throughout the course of her stay. This is with her blood pressure medications and Lasix held. We will consider restarting lisinopril at a lower dose if her blood pressure trends up to over 150. -Consider permanent discontinuation of Lasix Qualifiers: Hypertension type: essential hypertension Qualified Code(s): I10 - Essential (primary) hypertension (4) KAR (acute kidney injury) Current Visit: Yes Status: Acute Assessment and plan: Patient's creatinine 0.77 after IV fluid hydration. (5) DVT prophylaxis Current Visit: No Status: Acute - Subjective Interval history: Patient is an 81-year-old female past medical history of hypertension, hyperlipidemia, and dementia. She presented to the hospital status post a syncopal episode at [facility]. She is currently being treated with Levaquin for UTI. This morning patient is alert and oriented 1 which is her baseline. She denies any dizziness or lightheadedness. She is resting comfortably and asking for a diet. Patient has no concerns and is ambulating as normal. - Constitutional Vitals: Temp Pulse Resp BP Pulse Ox 98.2 F 77 16 136/84 97 03/24/17 11:11 03/24/17 11:11 03/24/17 11:11 03/24/17 11:11 03/24/17 11:11 General appearance: Present: cachectic, A&O X 1, pleasant - Respiratory Respiratory exam: Present: CTAB. Absent: accessory muscle use, rales, rhonchi, wheezes - Cardiovascular Cardiovascular exam: Present: RRR, +S1, +S2. Absent: diastolic murmur, gallop, rubs, systolic murmur - GI/Abdominal GI/Abdominal exam: Present: soft. Absent: guarding, tenderness - Extremities Exam Extremities exam: Present: warm, radial pulses palpable and symmetrical. Absent : calf tenderness, cyanotic, pedal edema Internal Medicine: Result - Labs CBC & Chem 7: 03/24/17 05:47 03/24/17 05:47 Labs: Short CBC 03/24/17 Range/Units 05:47 WBC 14.4 H (4.3-11.1) K/mcL Hgb 11.8 (11.5-15.4) g/dL Hct 36.0 (35.3-44.9) % Plt Count 279 (140-400) K/mcL Neutrophils # 12.3 H (1.6-8.9) K/mcL BMP 03/24/17 05:47 Sodium 141 Potassium 4.4 Chloride 112 H Carbon Dioxide 21 BUN 29 H Creatinine 0.77 Glucose 103 H Calcium 9.8 - ABG Interpretation ABG results: PT/INR, D-dimer PT 11.9 Seconds (9.4-12.1) 03/23/17 16:22
--- NOTE | 2017-03-24 17:30 | Electrocardiograph Report ---
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
[2017-03-24] MEDS: Famotidine 20 MG/2 ML VIAL IVP SCH (17:54)
--- NOTE | 2017-03-24 18:11 | Carotid Imaging Report ---
Carotid Duplex Patient Name:Leni Humphrey Order Number:[id number] Procedure Date:03/24/2017 Date:1935ge:81 yrs Gender:Female Lt BP:120 / 65 mmHg Rt.BP:120 / 66 mmHgHeart Rate: Location:[facility] Room #: 3A51 [employer] Lead:Charity Cherry, LINDSAY, RVT Referring MD:Vandana Collado MD Reading MD:Shahab Avila MD Primary Indications:Syncope and collapse Risk Factors Yes/No Hypertension Yes Hypercholesterolemia Yes Impressions: The bilateral carotid arteries have minimal plaque throughout. Findings Carotid Duplex: Right: The right proximal common carotid artery has a PSV of 62 cm/s and a EDV of 11 cm/s. The right mid common carotid artery has a PSV of 74 cm/s and a EDV of 13 cm/s. The right distal common carotid artery has a PSV of 47 cm/s and a EDV of 12 cm/s. The right bifurcation has a PSV of 45 cm/s and a EDV of 9 cm/s. The right proximal internal carotid artery has a PSV of 50 cm/s and a EDV of 11 cm/s. The right mid internal carotid artery has a PSV of 60 cm/s and a EDV of 14 cm/s. The right distal internal carotid artery has a PSV of 55 cm/s and a EDV of 13 cm/s. The right eca has a PSV of 83 cm/s and a EDV of 7 cm/s. The right vertebral artery has a PSV of 31 cm/s and a EDV of 6 cm/s. Left: The left proximal common carotid artery has a PSV of 47 cm/s and a EDV of 7 cm/s. The left mid common carotid artery has a PSV of 64 cm/s and a EDV of 11 cm/s. The left distal common carotid artery has a PSV of 56 cm/s and a EDV of 9 cm/s. The left bifurcation has a PSV of 46 cm/s and a EDV of 11 cm/s. The left proximal internal carotid artery has a PSV of 53 cm/s and a EDV of 12 cm/s. The left mid internal carotid artery has a PSV of 88 cm/s and a EDV of 18 cm/s. The left distal internal carotid artery has a PSV of 103 cm/s and a EDV of 20 cm/s. The left eca has a PSV of 97 cm/s and a EDV of 9 cm/s. The left vertebral artery has a PSV of 45 cm/s and a EDV of 9 cm/s. Prior Study: No prior study available for comparison. Carotid Results Right PSV EDV Assessment Proximal CCA 62 11 Mid CCA 74 13 Distal CCA 47 12 Bifurcation 45 9 Proximal ICA 50 11 Mid ICA 60 14 Distal ICA 55 13 ECA 83 7 Vertebral Artery 31 6 Antegrade Flow Left PSV EDV Assessment Proximal CCA 47 7 Mid CCA 64 11 Distal CCA 56 9 Bifurcation 46 11 Proximal ICA 53 12 Mid ICA 88 18 Distal ICA 103 20 ECA 97 9 Vertebral Artery 45 9 Antegrade Flow Ratio's Right ICA/CCA Ratio: 0.81 ICA/CCA Values: 60/74 Left ICA/CCA Ratio: 1.61 ICA/CCA Values: 103/64 Updated by Shahab Avila MD on 03/24/2017 6:04:20 PM electronically signed on 03/24/2017 6:05:03 PM with status of Final
[2017-03-25] MEDS: *HR* Morphine 2 MG/ML SYRINGE IVP PRN (03:18)
[2017-03-25] MEDS: *HR* Heparin 5,000 UNIT/ML VIAL SQ SCH ×2 (05:53→18:32)
[2017-03-25] MEDS: Nystatin POWDER 30 GM BOTTLE TP SCH ×4 (05:54→20:23)
[2017-03-25] MEDS: Famotidine 20 MG/2 ML VIAL IVP SCH ×2 (05:56→18:32)
[2017-03-25 06:44] LABS: BUN/Creatinine Ratio 28 (6-26); Blood Urea Nitrogen 20 mg/dL (7-20); Calcium 9.8 mg/dL (8.6-10.8); Carbon Dioxide 24 mEq/L (19-29); Chloride 106 mEq/L (98-109); Glucose 94 mg/dL (70-99); Osmolality,Calculated 282 (280-300); Potassium 3.9 mEq/L (3.5-4.5); Sodium 135 mEq/L (136-145); eGFR For African Americans > 60 (> 60); eGFR For Non-African Americans > 60 (> 60)
[2017-03-25 07:07] LABS: Basophils % 0.3 %; Eosinophils # 0.1 K/mcL (0.0-0.6); Eosinophils % 0.5 %; Hematocrit 33.7 % (35.3-44.9); Hemoglobin 10.9 g/dL (11.5-15.4); Immature Granulocytes % 0.4 % (0-4); Lymphocytes # 1.4 K/mcL (0.6-4.6); Lymphocytes % 11.3 %; Mean Corpuscular HGB Conc 32.3 g/dL (31.6-35.5); Mean Corpuscular Hemoglobin 29.2 pg (28.0-33.3); Mean Corpuscular Volume 90.3 fL (83.0-100.0); Mean Platelet Volume 9.6 fL (9.4-12.4); Monocytes # 0.9 K/mcL (0.0-1.3); Neutrophils # 10.3 K/mcL (1.6-8.9); Platelet Count 279 K/mcL (140-400); Red Blood Count 3.73 M/mcL (3.82-4.97); Red Cell Distribution Width 13.3 % (11.5-14.5); Segmented Neutrophils % 80.5 %
--- NOTE | 2017-03-25 08:46 | Internal Med Progress Note ---
<Italo Chatterjee T - Last Filed: 03/25/17 16:08> Date of Encounter: 03/25/17 - Constitutional Vitals: Temp Pulse Resp BP Pulse Ox 99.4 F 84 15 122/71 99 03/25/17 12:15 03/25/17 13:04 03/25/17 13:04 03/25/17 13:04 03/25/17 13:04 Internal Medicine: Result - Labs CBC & Chem 7: 03/25/17 06:18 03/25/17 06:18 Labs: Short CBC 03/25/17 Range/Units 06:18 WBC 12.8 H (4.3-11.1) K/mcL Hgb 10.9 L (11.5-15.4) g/dL Hct 33.7 L (35.3-44.9) % Plt Count 279 (140-400) K/mcL Neutrophils # 10.3 H (1.6-8.9) K/mcL BMP 03/25/17 06:18 Sodium 135 L Potassium 3.9 Chloride 106 Carbon Dioxide 24 BUN 20 Creatinine 0.72 Glucose 94 Calcium 9.8 - ABG Interpretation ABG results: PT/INR, D-dimer PT 11.9 Seconds (9.4-12.1) 03/23/17 16:22 - Impressions Impressions Echocardiogram 03/24/17 11:26 Impressions: LVEF 60-65%. Normal LV chamber size, wall thickness and function. Mild left ventricular diastolic dysfunction. Normal right ventricular structure and function. Moderately dilated left atrium. No evidence of PFO with agitated saline contrast. No evidence of pulmonary hypertension. There is a small inferolateral pericardial effusion present. There is no echocardiographic evidence of tamponade. Left Ventricular Wall Motion: Rest Echo Findings All wall segments showed normal motion. Findings: Study Quality * Technically adequate exam. ECG Findings * Normal sinus rhythm. Left Ventricle * LVEF 60-65%. * Normal LV chamber size, wall thickness and function. * Mild left ventricular diastolic dysfunction. Right Ventricle * Normal right ventricular structure and function. Left Atrium * Moderately dilated left atrium. Right Atrium * Mildly dilated right atrium. Interatrial Septum * No evidence of PFO with agitated saline contrast. Aortic Valve * Trileaflet aortic valve. * Mildly sclerotic aortic valve leaflets. * No aortic regurgitation. * No aortic stenosis. Mitral Valve * Normal mitral valve structure and function. * No mitral regurgitation. * No mitral stenosis. Tricuspid Valve * Normal tricuspid valve structure and function. * Trace tricuspid regurgitation. * No evidence of pulmonary hypertension. Pulmonic Valve * Normal pulmonic valve structure and function. * No pulmonic regurgitation. Aorta * Normally sized aortic root. Pericardium * There is a small inferolateral pericardial effusion present. * There is no echocardiographic evidence of tamponade. IVC * The IVC is not well evaluated. Pulmonary Artery * Normal visualized portions of the main pulmonary artery. Consult Discharge Plan - Plan Referrals: Katharine Sarabia MD [Primary Care Provider] - - Attending Attestation I have independently seen and examined this patient on 03/25/17, I have discussed plan of care with the resident physician Rio Duran, resident of [facility] with dementia, admitted following syncope, possibly secondary to orthostatis, she is also on treatment for UTI. She continues to complain of abdominal pain, vague, generalized, and not affected by meals. Her vitals are stable and her abdomen exam is unremarkable. Orthostatic vital signs were present 03/24 with tachycardia on standing from sitting position Physical exam: VSS, not in distress, moves all extremities, speaks fluently but pleasantly confused, chest is CTAB, no added sounds, abdomen is soft and not tender. She has no pedal edema Labs and imaging reviewed. Leukocytosis improving, HB now at baseline. Chem at baseline A/P Syncope-carotid USS negative, ECHO with mild LVDD. UTI: Continue Levaquin, d/c a.m. after 8 days of therapy. Abdominal pain: No objective reason, vitals are stable, check FOBT Leukocytosis is possibly secondary to UTI, will monitor Patient is not septic on admission and is not septic -she has no fever or hypothermia, she has no tachycardia. She has a normal BP. Her leukocytosis is due to UTI, which she is receiving antibiotics for rest of details as in resident physician's documentation <Vandana Collado - Last Filed: 03/25/17 16:20> Date of Encounter: 03/25/17 Time of Encounter: 08:44 - Assessment and plan (1) Syncope Current Visit: Yes Status: Acute Assessment and plan: Patient's etiology of syncope is unclear. Suspect vasovagal force orthostasis. -Patient's orthostatics today were positive with increased heart rate greater than 10 upon standing. -We will continue to hold blood pressure medications. We will resume lisinopril at half of her normal dosage at 2.5 once her blood pressure rebounds over 150. -We have ordered a carotid duplex and echocardiogram as patient has no history of these in our system. -Preliminary results of the carotid duplex ultrasound are within normal limits. -Echocardiogram shows ejection fraction of 60%. -Patient's hemoglobin trending down from 12 on admission to 10.9 today. We have ordered a stool occult test, if normal, we will discharge home tomorrow. Qualifiers: Syncope type: unspecified Qualified Code(s): R55 - Syncope and collapse (2) Leukocytosis Current Visit: Yes Status: Acute Assessment and plan: Patient with elevated white count. It is trending down. We will monitor this. Qualifiers: Leukocytosis type: unspecified Qualified Code(s): D72.829 - Elevated white blood cell count, unspecified (3) UTI (urinary tract infection) Current Visit: No Status: Acute Assessment and plan: Continue Levaquin day 9 of 10 doses. Urine culture in chart show sensitivity to Levaquin. Qualifiers: Urinary tract infection type: acute cystitis Hematuria presence: without hematuria Qualified Code(s): N30.00 - Acute cystitis without hematuria (4) Hypertension Current Visit: No Status: Chronic Assessment and plan: Patient has been normotensive throughout the course of her stay. This is with her blood pressure medications and Lasix held. We will consider restarting lisinopril at a lower dose if her blood pressure trends up to over 150. -Consider permanent discontinuation of Lasix Qualifiers: Hypertension type: essential hypertension Qualified Code(s): I10 - Essential (primary) hypertension (5) KAR (acute kidney injury) Current Visit: Yes Status: Acute Assessment and plan: Patient's creatinine 0.77 after IV fluid hydration. (6) DVT prophylaxis Current Visit: No Status: Acute - Subjective Interval history: Patient is an 81-year-old female past medical history of hypertension, hyperlipidemia, and dementia. She presented to the hospital status post a syncopal episode at [facility]. She is currently being treated with Levaquin for UTI. This morning patient is alert and oriented 1 which is her baseline. She denies any dizziness or lightheadedness. She is resting comfortably, however, she says she is having some lower mild abdominal discomfort. She denies any diarrhea. As patient is a 4 historian secondary to her dementia, I followed up with a nurse. Her stool has been solid and she is having daily bowel movements. Her stool was sent for C. difficile testing yesterday and declined as it was solid and formed. - Constitutional Vitals: Temp Pulse Resp BP Pulse Ox 98.4 F 80 16 122/76 94 03/25/17 08:41 03/25/17 08:41 03/25/17 08:41 03/25/17 08:41 03/25/17 08:41 General appearance: Present: cachectic, A&O X 1, pleasant - Respiratory Respiratory exam: Present: CTAB. Absent: accessory muscle use, rales, rhonchi, wheezes - Cardiovascular Cardiovascular exam: Present: RRR, +S1, +S2. Absent: diastolic murmur, gallop, rubs, systolic murmur - GI/Abdominal GI/Abdominal exam: Present: normal bowel sounds, soft, tenderness (Mild tenderness in the lower abdomen demand bilaterally), no peritoneal signs. Absent: distended - Extremities Exam Extremities exam: Present: warm, radial pulses palpable and symmetrical. Absent : calf tenderness, cyanotic, pedal edema Internal Medicine: Result - Labs CBC & Chem 7: 03/25/17 06:18 03/25/17 06:18 Labs: Short CBC 03/25/17 Range/Units 06:18 WBC 12.8 H (4.3-11.1) K/mcL Hgb 10.9 L (11.5-15.4) g/dL Hct 33.7 L (35.3-44.9) % Plt Count 279 (140-400) K/mcL Neutrophils # 10.3 H (1.6-8.9) K/mcL BMP 03/25/17 06:18 Sodium 135 L Potassium 3.9 Chloride 106 Carbon Dioxide 24 BUN 20 Creatinine 0.72 Glucose 94 Calcium 9.8 - ABG Interpretation ABG results: PT/INR, D-dimer PT 11.9 Seconds (9.4-12.1) 03/23/17 16:22 - VTE Documentation of Mechanical Device: Intermittent pneumatic compression device
[2017-03-25] MEDS: Aspirin 81 MG TAB.CHEW PO SCH (09:48)
[2017-03-26 04:49] LABS: Basophils % 0.2 %; Eosinophils # 0.1 K/mcL (0.0-0.6); Eosinophils % 0.6 %; Hematocrit 32.1 % (35.3-44.9); Hemoglobin 10.6 g/dL (11.5-15.4); Immature Granulocytes % 0.6 % (0-4); Lymphocytes # 1.8 K/mcL (0.6-4.6); Lymphocytes % 11.2 %; Mean Corpuscular Hemoglobin 29.6 pg (28.0-33.3); Mean Corpuscular Volume 89.7 fL (83.0-100.0); Mean Platelet Volume 9.1 fL (9.4-12.4); Monocytes # 1.3 K/mcL (0.0-1.3); Monocytes % 7.9 %; Platelet Count 268 K/mcL (140-400); Red Blood Count 3.58 M/mcL (3.82-4.97); Red Cell Distribution Width 13.3 % (11.5-14.5); Segmented Neutrophils % 79.5 %
[2017-03-26 05:10] LABS: BUN/Creatinine Ratio 29 (6-26); Blood Urea Nitrogen 20 mg/dL (7-20); Calcium 9.6 mg/dL (8.6-10.8); Carbon Dioxide 24 mEq/L (19-29); Chloride 105 mEq/L (98-109); Glucose 103 mg/dL (70-99); Osmolality,Calculated 287 (280-300); Sodium 137 mEq/L (136-145); eGFR For African Americans > 60 (> 60); eGFR For Non-African Americans > 60 (> 60)
[2017-03-26] MEDS: *HR* Heparin 5,000 UNIT/ML VIAL SQ SCH ×2 (06:16→19:38)
[2017-03-26] MEDS: Famotidine 20 MG/2 ML VIAL IVP SCH ×2 (06:17→19:39)
[2017-03-26] MEDS: Nystatin POWDER 30 GM BOTTLE TP SCH ×3 (09:50→21:41)
[2017-03-26] MEDS: Aspirin 81 MG TAB.CHEW PO SCH (09:50)
[2017-03-26] MEDS: MetroNIDAZOLE 500 MG/100 ML 500 MG/100 ML BAG IVPB SCH ×2 (12:13→16:38)
--- NOTE | 2017-03-26 13:25 | Internal Med Progress Note ---
<Vandana Collado - Last Filed: 03/26/17 13:21> Date of Encounter: 03/26/17 Time of Encounter: 09:00 - Assessment and plan (1) Syncope Current Visit: Yes Status: Acute Assessment and plan: Patient's etiology of syncope is unclear. Suspect vasovagal force orthostasis. -Patient's orthostatics today were positive with increased heart rate greater than 10 upon standing. -We will continue to hold blood pressure medications. We will resume lisinopril at half of her normal dosage at 2.5 once her blood pressure rebounds over 150. -We have ordered a carotid duplex and echocardiogram as patient has no history of these in our system. -Carotid duplex ultrasound within normal limits. -Echocardiogram shows ejection fraction of 60%. -Stool occult testing was negative. -Patient's white blood cell count increased overnight. We ordered an abdominal CT scan which showed segmental wall thickening of the left colon with surrounding inflammation consistent with colitis. This is consistent with patient's history of diarrhea upon admission to the hospital. -We will cover her with Cipro and Flagyl despite her lack of diarrhea. -If patient's white blood cell count trending down tomorrow, we will discharge her home to the retirement. Qualifiers: Syncope type: unspecified Qualified Code(s): R55 - Syncope and collapse (2) Leukocytosis Current Visit: Yes Status: Acute Assessment and plan: Patient with elevated white count. This increased overnight from 12.8-16.3. Abdominal CT scan suggestive of colitis. -Follow recommendations above. Qualifiers: Leukocytosis type: unspecified Qualified Code(s): D72.829 - Elevated white blood cell count, unspecified (3) UTI (urinary tract infection) Current Visit: No Status: Acute Assessment and plan: Levaquin dose 10 of 10 today. Urine culture in chart show sensitivity to Levaquin. Qualifiers: Urinary tract infection type: acute cystitis Hematuria presence: without hematuria Qualified Code(s): N30.00 - Acute cystitis without hematuria (4) Hypertension Current Visit: No Status: Chronic Assessment and plan: Patient has been normotensive throughout the course of her stay. This is with her blood pressure medications and Lasix held. We will consider restarting lisinopril at a lower dose if her blood pressure trends up to over 150. -Consider permanent discontinuation of Lasix Qualifiers: Hypertension type: essential hypertension Qualified Code(s): I10 - Essential (primary) hypertension (5) KAR (acute kidney injury) Current Visit: Yes Status: Acute Assessment and plan: Patient's creatinine 0.77 after IV fluid hydration. (6) DVT prophylaxis Current Visit: No Status: Acute - Subjective Interval history: Patient is an 81-year-old female past medical history of hypertension, hyperlipidemia, and dementia. She presented to the hospital status post a syncopal episode at [facility]. She is currently being treated with Levaquin for UTI. This morning patient is alert and oriented 1 which is her baseline. She denies any dizziness or lightheadedness. She is resting comfortably, and states that her abdominal discomfort from yesterday has improved. She denies any diarrhea. As patient is a poor historian secondary to her dementia, I followed up with a nurse. Her stool has been solid and she is having daily bowel movements. Her stool was sent for C. difficile testing 2 days prior and declined as it was solid and formed. Patient had just returned from abdominal CT scan at the time of my evaluation. - Constitutional Vitals: Temp Pulse Resp BP Pulse Ox 98 F 77 16 113/73 95 03/26/17 10:41 03/26/17 10:41 03/26/17 10:41 03/26/17 10:41 03/26/17 10:41 General appearance: Present: cachectic, A&O X 1, pleasant - Respiratory Respiratory exam: Present: CTAB. Absent: accessory muscle use, rales, rhonchi, wheezes - Cardiovascular Cardiovascular exam: Present: RRR, +S1, +S2. Absent: diastolic murmur, gallop, rubs, systolic murmur - GI/Abdominal GI/Abdominal exam: Present: normal bowel sounds, soft, no peritoneal signs. Absent: distended, tenderness - Extremities Exam Extremities exam: Present: warm, radial pulses palpable and symmetrical. Absent : calf tenderness, cyanotic, pedal edema Internal Medicine: Result - Labs CBC & Chem 7: 03/26/17 04:23 03/26/17 04:23 Labs: Short CBC 03/26/17 Range/Units 04:23 WBC 16.3 H (4.3-11.1) K/mcL Hgb 10.6 L (11.5-15.4) g/dL Hct 32.1 L (35.3-44.9) % Plt Count 268 (140-400) K/mcL Neutrophils # 13.0 H (1.6-8.9) K/mcL BMP 03/26/17 04:23 Sodium 137 Potassium 4.0 Chloride 105 Carbon Dioxide 24 BUN 20 Creatinine 0.70 Glucose 103 H Calcium 9.6 - ABG Interpretation ABG results: PT/INR, D-dimer PT 11.9 Seconds (9.4-12.1) 03/23/17 16:22 - Impressions Impressions Abdomen/Pelvis CT 03/26/17 07:44 IMPRESSION: Long segment wall thickening of the left colon with surrounding inflammatory fat stranding, consistent with colitis. There is small-moderate volume free fluid in the pelvis. D/ / Gianluca Ontiveros MD / Gianluca Ontiveros MD Interpreting Provider: Gianluca Ontiveros MD - VTE Documentation of Mechanical Device: Intermittent pneumatic compression device Consult Discharge Plan - Plan Referrals: Katharine Sarabia MD [Primary Care Provider] - <MinoItalo hughes T - Last Filed: 03/26/17 14:14> Date of Encounter: 03/26/17 - Assessment and plan (1) Leukocytosis Current Visit: Yes Status: Acute Qualifiers: Leukocytosis type: unspecified Qualified Code(s): D72.829 - Elevated white blood cell count, unspecified (2) Syncope Current Visit: Yes Status: Acute Qualifiers: Syncope type: unspecified Qualified Code(s): R55 - Syncope and collapse (3) UTI (urinary tract infection) Current Visit: Yes Status: Acute Qualifiers: Urinary tract infection type: acute cystitis Hematuria presence: without hematuria Qualified Code(s): N30.00 - Acute cystitis without hematuria (4) Essential (primary) hypertension Current Visit: Yes Status: Chronic (5) Colitis presumed infectious Current Visit: Yes Status: Acute (6) KAR (acute kidney injury) Current Visit: Yes Status: Resolved - Constitutional Vitals: Temp Pulse Resp BP Pulse Ox 98 F 77 16 113/73 95 03/26/17 10:41 03/26/17 10:41 10/05/17 10:41 03/26/17 10:41 03/26/17 10:41 Internal Medicine: Result - Labs CBC & Chem 7: 03/26/17 04:23 03/26/17 04:23 Labs: Short CBC 03/26/17 Range/Units 04:23 WBC 16.3 H (4.3-11.1) K/mcL Hgb 10.6 L (11.5-15.4) g/dL Hct 32.1 L (35.3-44.9) % Plt Count 268 (140-400) K/mcL Neutrophils # 13.0 H (1.6-8.9) K/mcL BMP 03/26/17 04:23 Sodium 137 Potassium 4.0 Chloride 105 Carbon Dioxide 24 BUN 20 Creatinine 0.70 Glucose 103 H Calcium 9.6 - ABG Interpretation ABG results: PT/INR, D-dimer PT 11.9 Seconds (9.4-12.1) 03/23/17 16:22 - Impressions Impressions Abdomen/Pelvis CT 03/26/17 07:44 IMPRESSION: Long segment wall thickening of the left colon with surrounding inflammatory fat stranding, consistent with colitis. There is small-moderate volume free fluid in the pelvis. D/ / Gianluca Ontiveros MD / Gianluca Ontiveros MD Interpreting Provider: Gianluca Ontiveros MD - Attending Attestation I have independently seen and examined this patient on 03/26/17, I have discussed plan of care with the resident physician 81 M, resident of [facility] with dementia, admitted following syncope, possibly secondary to orthostatis, she is also on treatment for UTI. She had positive orthostatic vital signs on arrival. She is improving , her BP remains normal without medications She complained of abdominal pain and had diarrhea on admission, this seems to have resolved but her leukocytosis continued to worsen Abd/Pelvis CT done today showed left colon colitis with free pelvic fluid. Physical exam: VSS, not in distress, moves all extremities, speaks fluently but pleasantly confused, chest is CTAB, no added sounds, abdomen is soft and not tender. She has no pedal edema Labs and imaging reviewed. Leukocytosis worsening 16.8. HB stable. Chem stable. Abdomen/Pelvis CT noted A/P Syncope-carotid USS negative, ECHO with mild LVDD. Resolved. fall preautions, continue to hole antihypertensives. Patient's BP is normal and acceptable for her age Colitis: Start po Flagyl and Ciprofloxacin, monitor WBC, C.diff not done since stool was formed, patient is afebrile and no longer having diarrhea. UTI: Treatment completed Patient is not septic on admission and is not septic -she has no fever or hypothermia, she has no tachycardia. She has a normal BP. She has leukocytosis secondary to colitis which is being treated rest of details as in resident physician's documentation
[2017-03-26 14:47] LABS: Basophils # 0.1 K/mcL (0.0-0.2); Basophils % 0.3 %; Eosinophils # 0.1 K/mcL (0.0-0.6); Eosinophils % 0.9 %; Hematocrit 35.3 % (35.3-44.9); Hemoglobin 11.3 g/dL (11.5-15.4); Immature Granulocytes % 0.4 % (0-4); Lymphocytes # 1.9 K/mcL (0.6-4.6); Lymphocytes % 13.2 %; Mean Corpuscular Volume 90.7 fL (83.0-100.0); Mean Platelet Volume 9.2 fL (9.4-12.4); Monocytes % 7.1 %; Neutrophils # 11.2 K/mcL (1.6-8.9); Platelet Count 272 K/mcL (140-400); Red Blood Count 3.89 M/mcL (3.82-4.97); Red Cell Distribution Width 13.5 % (11.5-14.5); Segmented Neutrophils % 78.1 %
[2017-03-26 15:04] LABS: BUN/Creatinine Ratio 26 (6-26); Blood Urea Nitrogen 20 mg/dL (7-20); Carbon Dioxide 19 mEq/L (19-29); Chloride 105 mEq/L (98-109); Glucose 106 mg/dL (70-99); Osmolality,Calculated 281 (280-300); Potassium 4.1 mEq/L (3.5-4.5); Sodium 134 mEq/L (136-145); eGFR For African Americans > 60 (> 60); eGFR For Non-African Americans > 60 (> 60)
[2017-03-27] MEDS: MetroNIDAZOLE 500 MG/100 ML 500 MG/100 ML BAG IVPB SCH ×3 (01:00→17:45)
[2017-03-27] MEDS: Famotidine 20 MG/2 ML VIAL IVP SCH ×2 (05:30→17:46)
[2017-03-27] MEDS: *HR* Heparin 5,000 UNIT/ML VIAL SQ SCH ×2 (05:30→17:46)
[2017-03-27 06:36] LABS: Basophils # 0.1 K/mcL (0.0-0.2); Basophils % 0.3 %; Eosinophils # 0.2 K/mcL (0.0-0.6); Hematocrit 32.5 % (35.3-44.9); Hemoglobin 10.6 g/dL (11.5-15.4); Immature Granulocytes % 0.6 % (0-4); Lymphocytes # 1.2 K/mcL (0.6-4.6); Lymphocytes % 7.7 %; Mean Corpuscular HGB Conc 32.6 g/dL (31.6-35.5); Mean Corpuscular Hemoglobin 28.8 pg (28.0-33.3); Mean Corpuscular Volume 88.3 fL (83.0-100.0); Mean Platelet Volume 9.1 fL (9.4-12.4); Monocytes % 6.9 %; Neutrophils # 12.5 K/mcL (1.6-8.9); Platelet Count 280 K/mcL (140-400); Red Blood Count 3.68 M/mcL (3.82-4.97); Red Cell Distribution Width 13.2 % (11.5-14.5); Segmented Neutrophils % 83.5 %
[2017-03-27 06:50] LABS: BUN/Creatinine Ratio 27 (6-26); Blood Urea Nitrogen 19 mg/dL (7-20); Calcium 9.7 mg/dL (8.6-10.8); Carbon Dioxide 25 mEq/L (19-29); Chloride 108 mEq/L (98-109); Glucose 110 mg/dL (70-99); Osmolality,Calculated 287 (280-300); Potassium 4.1 mEq/L (3.5-4.5); Sodium 137 mEq/L (136-145); eGFR For African Americans > 60 (> 60); eGFR For Non-African Americans > 60 (> 60)
[2017-03-27] MEDS: Aspirin 81 MG TAB.CHEW PO SCH (07:57)
[2017-03-27] MEDS: Nystatin POWDER 30 GM BOTTLE TP SCH ×2 (07:58→17:49)
--- NOTE | 2017-03-27 10:30 | Internal Med Progress Note ---
<Vandana Collado - Last Filed: 03/27/17 13:58> Date of Encounter: 03/27/17 Time of Encounter: 10:28 - Assessment and plan (1) Syncope Current Visit: Yes Status: Acute Assessment and plan: Patient's etiology of syncope is unclear. Suspect vasovagal force orthostasis. -Patient's orthostatics 2 days ago were positive with increased heart rate greater than 10 upon standing. -We will continue to hold blood pressure medications. We will resume lisinopril at half of her normal dosage at 2.5 once her blood pressure rebounds over 150. -Carotid duplex ultrasound within normal limits. -Echocardiogram shows ejection fraction of 60%. -Stool occult testing pending. -Patient's white blood cell count increased overnight mildly from 14.3-15. Abdominal CT scan 2 days ago shows colitis. This is consistent with patient's history of diarrhea upon admission to the hospital. -Patient is on day 2 of Cipro and Flagyl despite her lack of diarrhea and having formed bowel movements. -We have sent for a repeat GI stool panel as patient had 5 bowel movements yesterday. We aim to rule out C. difficile. Qualifiers: Syncope type: unspecified Qualified Code(s): R55 - Syncope and collapse (2) Leukocytosis Current Visit: Yes Status: Acute Assessment and plan: Patient with elevated white count of unclear etiology. This increased overnight from 14.3-15. Abdominal CT scan suggestive of colitis. -Follow recommendations above. -We have also ordered a repeat urinalysis. -Chest x-ray performed today shows no acute cardiopulmonary process. Qualifiers: Leukocytosis type: unspecified Qualified Code(s): D72.829 - Elevated white blood cell count, unspecified (3) Abdominal pain Current Visit: Yes Status: Acute Assessment and plan: Patient complains of abdominal pain, however, she is nontender to palpation. Follow-up recommendations above for leukocytosis. Qualifiers: Abdominal location: generalized Qualified Code(s): R10.84 - Generalized abdominal pain (4) UTI (urinary tract infection) Current Visit: No Status: Acute Assessment and plan: Patient finished a 10 day course of Levaquin yesterday for UTI diagnosed at her snf. As patient's white blood cell count continues to trend upward, we have ordered a repeat urinalysis. Qualifiers: Urinary tract infection type: acute cystitis Hematuria presence: without hematuria Qualified Code(s): N30.00 - Acute cystitis without hematuria (5) Hypertension Current Visit: No Status: Chronic Assessment and plan: Patient has been normotensive throughout the course of her stay. This is with her blood pressure medications and Lasix held. We will consider restarting lisinopril at a lower dose if her blood pressure trends up to over 150. -Consider permanent discontinuation of Lasix Qualifiers: Hypertension type: essential hypertension Qualified Code(s): I10 - Essential (primary) hypertension (6) KAR (acute kidney injury) Current Visit: Yes Status: Resolved Assessment and plan: Patient's creatinine 0.77 after IV fluid hydration. (7) DVT prophylaxis Current Visit: No Status: Acute Assessment and plan: Heparin subcutaneous DVT prophylaxis. - Subjective Interval history: Patient is an 81-year-old female past medical history of hypertension, hyperlipidemia, and dementia. She presented to the hospital status post a syncopal episode at [facility]. This morning patient is alert and oriented 2 which has improved from admission. She denies any dizziness or lightheadedness. Patient states she feels poorly this morning. She states she is having a cough which is irritating her. She does not have an appetite, which she states is very unusual for her. She also claims she is having abdominal pain across her belly which is dull and mild. - Constitutional Vitals: Temp Pulse Resp BP Pulse Ox 99.1 F 89 17 130/71 94 03/27/17 08:01 03/27/17 08:01 03/27/17 08:01 03/27/17 08:01 03/27/17 08:01 General appearance: Present: cachectic, A&O X 2, pleasant - Respiratory Respiratory exam: Present: CTAB. Absent: accessory muscle use, rales, rhonchi, wheezes - Cardiovascular Cardiovascular exam: Present: RRR, +S1, +S2. Absent: diastolic murmur, gallop, rubs, systolic murmur - GI/Abdominal GI/Abdominal exam: Present: normal bowel sounds, soft, no peritoneal signs. Absent: distended, tenderness - Extremities Exam Extremities exam: Present: warm, radial pulses palpable and symmetrical. Absent : calf tenderness, cyanotic, pedal edema Internal Medicine: Result - Labs CBC & Chem 7: 03/27/17 06:16 03/27/17 06:16 Labs: Short CBC 03/26/17 03/27/17 Range/Units 14:27 06:16 WBC 14.3 H 15.0 H (4.3-11.1) K/mcL Hgb 11.3 L 10.6 L (11.5-15.4) g/dL Hct 35.3 32.5 L (35.3-44.9) % Plt Count 272 280 (140-400) K/mcL Neutrophils # 11.2 H 12.5 H (1.6-8.9) K/mcL BMP 03/26/17 03/27/17 14:27 06:16 Sodium 134 L 137 Potassium 4.1 4.1 Chloride 105 108 Carbon Dioxide 19 25 BUN 20 19 Creatinine 0.76 0.71 Glucose 106 H 110 H Calcium 10.0 9.7 - ABG Interpretation ABG results: PT/INR, D-dimer PT 11.9 Seconds (9.4-12.1) 03/23/17 16:22 - Impressions Impressions Chest X-Ray 03/27/17 09:10 IMPRESSION: No radiographic evidence of acute cardiopulmonary disease. D/ / Jevon Walsh / Jevon Walsh Interpreting Provider: Jevon Walsh - VTE Documentation of Mechanical Device: Intermittent pneumatic compression device Consult Discharge Plan - Plan Referrals: Katharine Sarabia MD [Primary Care Provider] - <Italo Chatterjee T - Last Filed: 03/27/17 14:35> Date of Encounter: 03/27/17 - Assessment and plan (1) Leukocytosis Current Visit: Yes Status: Acute Qualifiers: Leukocytosis type: unspecified Qualified Code(s): D72.829 - Elevated white blood cell count, unspecified (2) Syncope Current Visit: Yes Status: Acute Qualifiers: Syncope type: unspecified Qualified Code(s): R55 - Syncope and collapse (3) UTI (urinary tract infection) Current Visit: Yes Status: Acute Qualifiers: Urinary tract infection type: acute cystitis Hematuria presence: without hematuria Qualified Code(s): N30.00 - Acute cystitis without hematuria (4) Essential (primary) hypertension Current Visit: Yes Status: Chronic (5) Colitis presumed infectious Current Visit: Yes Status: Acute (6) KAR (acute kidney injury) Current Visit: Yes Status: Resolved - Constitutional Vitals: Temp Pulse Resp BP Pulse Ox 98.6 F 73 15 116/75 94 03/27/17 10:28 03/27/17 10:28 03/27/17 10:28 03/27/17 10:28 03/27/17 10:28 Internal Medicine: Result - Labs CBC & Chem 7: 03/27/17 06:16 03/27/17 06:16 Labs: Short CBC 03/26/17 03/27/17 Range/Units 14:27 06:16 WBC 14.3 H 15.0 H (4.3-11.1) K/mcL Hgb 11.3 L 10.6 L (11.5-15.4) g/dL Hct 35.3 32.5 L (35.3-44.9) % Plt Count 272 280 (140-400) K/mcL Neutrophils # 11.2 H 12.5 H (1.6-8.9) K/mcL BMP 03/26/17 03/27/17 14:27 06:16 Sodium 134 L 137 Potassium 4.1 4.1 Chloride 105 108 Carbon Dioxide 19 25 BUN 20 19 Creatinine 0.76 0.71 Glucose 106 H 110 H Calcium 10.0 9.7 - ABG Interpretation ABG results: PT/INR, D-dimer PT 11.9 Seconds (9.4-12.1) 03/23/17 16:22 - Impressions Impressions Chest X-Ray 03/27/17 09:10 IMPRESSION: No radiographic evidence of acute cardiopulmonary disease. D/ / Jevon Walsh / Jevon Walsh Interpreting Provider: Jevon Walsh - Attending Attestation I have independently seen and examined this patient on 03/27/17, I have discussed plan of care with the resident physician 81 M, resident of with dementia, admitted following syncope, possibly secondary to orthostatis, she was also on treatment for UTI. She had positive orthostatic vital signs on arrival. She is improving , her BP remains normal without medications During this admission, She complained of abdominal pain and had diarrhea on admission, this seems to have resolved but her leukocytosis continued to worsen Abd/Pelvis CT done 03/26/17 showed left colon colitis with free pelvic fluid. She was started on ciprofloxacin and flagyl Today, the patient complains of "not feeling well", she also had documented > 3BM per chart which were all formed and non-bloody. She usually finishes her tray of food but barely touched it. Her physical exam is unchanged objectively Physical exam: VSS, not in distress, moves all extremities, speaks fluently but pleasantly confused, chest is CTAB, no added sounds, abdomen is soft and not tender. She has no pedal edema Labs and imaging reviewed. Leukocytosis slightly improved from 16.8 to 15.0, hb and PLT count is normal. Chem stable. Abdomen/Pelvis CT noted. CXR no acute processes, repeat stool work up is ordered and pending A/P #Syncope-carotid USS negative, ECHO with mild LVDD. Resolved. fall preautions, continue to hold antihypertensives. Patient's BP is normal and acceptable for her age #Colitis: Repeat stool work up, continue flagyl and cipro. #Leukocytosis: No fever, no tachycardia, possibly secondary to colitis. UTI has been treated adequately, admitting urine analysis is normal,will not repeat for now. Patient is not septic. UTI: Treatment completed #Dementia: fall precautions Patient is not septic on admission and is not septic -she has no fever or hypothermia, she has no tachycardia. She has a normal BP. She has leukocytosis secondary to colitis which is being treated rest of details as in resident physician's documentation
[2017-03-27] MEDS: Ondansetron 4 MG/2 ML VIAL IVP PRN (11:24)
[2017-03-28 04:45] LABS: Basophils # 0.1 K/mcL (0.0-0.2); Basophils % 0.5 %; Eosinophils # 0.3 K/mcL (0.0-0.6); Eosinophils % 3.3 %; Hematocrit 30.1 % (35.3-44.9); Hemoglobin 9.8 g/dL (11.5-15.4); Immature Granulocytes % 0.6 % (0-4); Immature Platelets 1.8 % (1.1-6.1); Lymphocytes # 1.7 K/mcL (0.6-4.6); Lymphocytes % 16.7 %; Mean Corpuscular HGB Conc 32.6 g/dL (31.6-35.5); Mean Corpuscular Volume 89.1 fL (83.0-100.0); Mean Platelet Volume 9.5 fL (9.4-12.4); Monocytes % 9.6 %; Neutrophils # 6.9 K/mcL (1.6-8.9); Platelet Count 313 K/mcL (140-400); Red Blood Count 3.38 M/mcL (3.82-4.97); Red Cell Distribution Width 13.2 % (11.5-14.5); Segmented Neutrophils % 69.3 %
[2017-03-28 05:06] LABS: BUN/Creatinine Ratio 27 (6-26); Blood Urea Nitrogen 21 mg/dL (7-20); Carbon Dioxide 26 mEq/L (19-29); Chloride 106 mEq/L (98-109); Glucose 94 mg/dL (70-99); Sodium 139 mEq/L (136-145); eGFR For African Americans > 60 (> 60); eGFR For Non-African Americans > 60 (> 60)
[2017-03-28 05:07] LABS: Calcium 9.6 mg/dL (8.6-10.8); Osmolality,Calculated 291 (280-300)
[2017-03-28 05:08] LABS: Potassium 4.1 mEq/L (3.5-4.5)
[2017-03-28] MEDS: MetroNIDAZOLE 500 MG/100 ML 500 MG/100 ML BAG IVPB SCH ×3 (05:11→16:10)
[2017-03-28] MEDS: Famotidine 20 MG/2 ML VIAL IVP SCH ×2 (05:16→17:36)
[2017-03-28] MEDS: *HR* Heparin 5,000 UNIT/ML VIAL SQ SCH ×2 (05:16→17:35)
[2017-03-28] MEDS: Nystatin POWDER 30 GM BOTTLE TP SCH ×3 (05:30→16:10)
[2017-03-28 07:21] VITALS: BP 117/62
[2017-03-28] MEDS: Aspirin 81 MG TAB.CHEW PO SCH (09:05)
--- NOTE | 2017-03-28 11:51 | Discharge Summary ---
<Vandana Collado H - Last Filed: 03/28/17 11:42> Date of Encounter: 03/28/17 Time of Encounter: 11:42 - Discharge Diagnosis (1) Syncope Priority: Primary Status: Acute Qualifiers: Syncope type: unspecified Qualified Code(s): R55 - Syncope and collapse (2) Leukocytosis Priority: Secondary Status: Acute Qualifiers: Leukocytosis type: unspecified Qualified Code(s): D72.829 - Elevated white blood cell count, unspecified (3) Abdominal pain Priority: Secondary Status: Acute Qualifiers: Abdominal location: generalized Qualified Code(s): R10.84 - Generalized abdominal pain (4) UTI (urinary tract infection) Priority: Secondary Status: Acute Qualifiers: Urinary tract infection type: acute cystitis Hematuria presence: without hematuria Qualified Code(s): N30.00 - Acute cystitis without hematuria (5) Hypertension Priority: Secondary Status: Chronic Qualifiers: Hypertension type: essential hypertension Qualified Code(s): I10 - Essential (primary) hypertension (6) KAR (acute kidney injury) Priority: Secondary Status: Resolved (7) DVT prophylaxis Priority: Secondary Status: Acute - Discharge Medications Prescriptions: Ciprofloxacin [Cipro] 250 mg PO BID #8 tablet metroNIDAZOLE [Flagyl] 500 mg PO BID #10 tablet Home Medications: Docusate Sodium [Dok] 100 mg PO DAILY 08/29/16 [History] Ibuprofen [Motrin] 800 mg PO TID PRN 08/29/16 [History] Multivitamin [One Daily Multivitamin] 1 tab PO DAILY 08/29/16 [History] [place]-3/Dha/Epa/Fish Oil [Fish Oil 1,000 mg Softgel] 1,000 mg PO DAILY 08/29/16 [History] Nystatin POWDER [Nystop] 1 appl TP TID #1 bottle 02/05/17 [Rx] Aspirin 81 mg PO DAILY 03/23/17 [History] Ciprofloxacin [Cipro] 250 mg PO BID #8 tablet 03/28/17 [Rx] metroNIDAZOLE [Flagyl] 500 mg PO BID #10 tablet 03/28/17 [Rx] Allergies/Adverse Reactions: 3 Allergy/AdvReac Type Severity Reaction Status Date / Time No Known Allergies Allergy Verified 08/28/16 08:35 Procedures/tests Complete & Pending: Procedures Performed prior 72 hours Category Date Time Status CT abd pelvis wo no iv no oral [CT] Stat Cat Scan 03/26/17 07:44 Completed Date of admission: 03/23/17 19:43 Primary care physician: Katharine Sarabia Consults: 03/23/17 23:45 Consult to Occupational Therapy [CONS] Routine Comment: Evaluate, develop and implement POC Reason for Consult: wekaness Consult to Physical Therapy [CONS] Routine Comment: Evaluate, develop and implement POC Reason for Consult: weakness 03/24/17 07:22 Consult to Factory Expert [CONS] Routine Reason for SW Consult: pt is from a skilled nursing per ER but pt could not tell staff what skilled nursing she if from. - Patient Status Disposition: Transfer SNF Condition: Good Functional capacity at discharge: uses cane/walker Overall status at discharge: patient is progressing back to baseline - Discharge Instructions Follow Up With: Katharine Sarabia MD [Primary Care Provider] - Additional Instructions: During her hospitalization, it is believed that your episode of syncope was due to being on your diuretic and antihypertensive medication. We have therefore discontinued your lisinopril for hypertension and your Lasix for diuresis. Please follow this up with your primary care provider in the next 1-2 weeks. We have given you to medications which are antibiotics, ciprofloxacin and metronidazole. Please take these medications as prescribed for the next 4-5 days. It was found that you had a case of colitis during the hospital, which we feel has resolved. However, we would like for you to take the full course of medication. - Diet and Activity Activity: resume usual activities as tolerated Diet: advance to your usual diet, low fat, low cholesterol Interval History: Ms. Humphrey is an 81-year-old female past medical history of hypertension, dyslipidemia, and Alzheimer's dementia. She was admitted to the hospital after a syncopal episode in [facility]. Patient was reported to be bradycardic during this event. Patient was also currently being treated with Levaquin for a urinary tract infection during the event. Patient was alert and oriented 1 which was her baseline during her hospital admission. Patient's CT scan in the emergency department showed no evidence of any intracranial hemorrhage. Patient's EKG sinus rhythm. Patient syncope believed to be vasovagal orthostasis. Orthostatics were positive. Patient's carotid duplex ultrasound was within normal limits. Her echocardiogram was noncontributory with an ejection fraction 60%. As patient was normotensive, borderline hypotensive, around 110s to 120s systolic blood pressure-dunaway during her hospital course, we discontinued her Lasix and lisinopril. We consider restarting her lisinopril at a reduced dosage of 2.5 mg if her blood pressure rebounded over 150, which never did. We discharged her home with discontinuation of both medications. Patient received her final dose of Levaquin for a urinary tract infection diagnosed prior to hospitalization. Hospital course was complicated secondary to patient having an unspecified leukocytosis with generalized abdominal pain. CT of her abdomen and pelvis showed mild colitis. Patient was found to have many bowel movements during hospitalization, however, GI stool panel testing was deferred as her bowel movements were fully formed. We decided to prophylactically cover her with ciprofloxacin and metronidazole. We have discharged her home with 4 and 5 days of those medications, respectively. This will give her a total course of 7 days of antibiotic coverage. Patient also complained of a cough 2 days ago, for which we ordered a chest x-ray which showed no acute cardiopulmonary processes. Patient was resting comfortably and incredibly present during the entire hospitalization. We addressed everything with her, however, it is unclear how much she retained due to her dementia. Patient is being discharged home to [facility] today. All of her questions were addressed. Hospital course: Ms. Humphrey is a 81 year old female - Time Spent with Patient Total time spent providing and/or coordinating discharge services: Greater than 30 minutes (40 minutes) - Constitutional Vitals: Temp Pulse Resp BP Pulse Ox 98.4 F 80 18 117/62 96 03/28/17 07:16 03/28/17 07:16 03/28/17 07:16 03/28/17 07:16 03/28/17 07:16 General appearance: Present: cachectic, A&O X 1, pleasant - Respiratory Respiratory exam: Present: CTAB. Absent: accessory muscle use, rales, rhonchi, wheezes - Cardiovascular Cardiovascular exam: Present: RRR, +S1, +S2. Absent: diastolic murmur, gallop, rubs, systolic murmur - GI/Abdominal GI/Abdominal exam: Present: normal bowel sounds, soft, no peritoneal signs. Absent: distended, tenderness - Extremities Exam Extremities exam: Present: warm, radial pulses palpable and symmetrical. Absent : calf tenderness, cyanotic, pedal edema - VTE Documentation of Mechanical Device: Intermittent pneumatic compression device <Italo Chatterjee - Last Filed: 03/28/17 13:50> Date of Encounter: 03/28/17 - Discharge Diagnosis (1) Leukocytosis Status: Acute Qualifiers: Leukocytosis type: unspecified Qualified Code(s): D72.829 - Elevated white blood cell count, unspecified (2) Syncope Status: Acute Qualifiers: Syncope type: unspecified Qualified Code(s): R55 - Syncope and collapse (3) UTI (urinary tract infection) Status: Acute Qualifiers: Urinary tract infection type: acute cystitis Hematuria presence: without hematuria Qualified Code(s): N30.00 - Acute cystitis without hematuria (4) Essential (primary) hypertension Status: Chronic (5) Colitis presumed infectious Status: Acute (6) KAR (acute kidney injury) Status: Resolved Procedures/tests Complete & Pending: Procedures Performed prior 72 hours Category Date Time Status CT abd pelvis wo no iv no oral [CT] Stat Cat Scan 03/26/17 07:44 Completed Date of admission: 03/23/17 19:43 Primary care physician: Katharine Sarabia Consults: 03/23/17 23:45 Consult to Occupational Therapy [CONS] Routine Comment: Evaluate, develop and implement POC Reason for Consult: wekaness Consult to Physical Therapy [CONS] Routine Comment: Evaluate, develop and implement POC Reason for Consult: weakness 03/24/17 07:22 Consult to Factory Expert [CONS] Routine Reason for SW Consult: pt is from a skilled nursing per ER but pt could not tell staff what skilled nursing she if from. Hospital course: Ms. Humphrey is a 81 year old female - Time Spent with Patient Total time spent providing and/or coordinating discharge services: - Constitutional Vitals: Temp Pulse Resp BP Pulse Ox 98.4 F 80 18 117/62 96 03/28/17 07:16 03/28/17 07:16 03/28/17 07:16 03/28/17 07:16 03/28/17 07:16 - Attending Attestation I have independently seen and examined this patient on 03/28/17, I have discussed plan of care with the resident physician and the patient. 81 M, resident of SNF with dementia, admitted following syncope, possibly secondary to orthostatis, she was also on treatment for UTI. She had positive orthostatic vital signs on arrival. She is improving , her BP remains normal without medications Syncope work up with carotid doppler and Brain MRI was unremarkable. She was found to have colitis following complains of abdominal pain and diarrhea on admission She has improved with cipro/Flagyl. She is seen and evaluated a bedside this morning, in her usual mood, with no new complains Physical exam: VSS, not in distress, moves all extremities, speaks fluently but pleasantly confused, chest is CTAB, no added sounds, abdomen is soft and not tender. She has no pedal edema Labs and imaging reviewed. CBC is normal. #Syncope-Resolved carotid USS negative, ECHO with mild LVDD. Resolved. fall preautions, continue to hold antihypertensives. Patient's BP is normal and acceptable for her age #Colitis: IMproved with Cipro and falgyl, discharge to SNF on same #Leukocytosis: Resolved UTI: Treatment completed #Dementia: fall precaution Safe to discharge home, patient does not need blood pressure medications as her blood pressure has been stable without them Rest of details as in resident physician's documentation
--- NOTE | 2017-03-28 13:57 | Physician Discharge Referral ---
ExtendedCare Referral Info Transfer To: [facility] - Diagnosis (1) Syncope Priority: Primary Status: Acute (2) Leukocytosis Priority: Secondary Status: Acute (3) Abdominal pain Priority: Secondary Status: Acute (4) UTI (urinary tract infection) Priority: Secondary Status: Acute (5) Hypertension Priority: Secondary Status: Chronic (6) KAR (acute kidney injury) Status: Resolved (7) DVT prophylaxis Status: Acute - Transfer Medications Prescriptions: Ciprofloxacin [Cipro] 250 mg PO BID #8 tablet metroNIDAZOLE [Flagyl] 500 mg PO BID #10 tablet Home Medications: Docusate Sodium [Dok] 100 mg PO DAILY 08/29/16 [History] Ibuprofen [Motrin] 800 mg PO TID PRN 08/29/16 [History] Multivitamin [One Daily Multivitamin] 1 tab PO DAILY 08/29/16 [History] [place]-3/Dha/Epa/Fish Oil [Fish Oil 1,000 mg Softgel] 1,000 mg PO DAILY 08/29/16 [History] Nystatin POWDER [Nystop] 1 appl TP TID #1 bottle 02/05/17 [Rx] Aspirin 81 mg PO DAILY 03/23/17 [History] Ciprofloxacin [Cipro] 250 mg PO BID #8 tablet 03/28/17 [Rx] metroNIDAZOLE [Flagyl] 500 mg PO BID #10 tablet 03/28/17 [Rx] Allergies/Adverse Reactions: 3 Allergy/AdvReac Type Severity Reaction Status Date / Time No Known Allergies Allergy Verified 08/28/16 08:35 - Respiratory Orders Smoking Cessation: Smoking cessation has been advised. For more information, call the [place] Tobacco Quit Line at 3-843-NPGX-NOW. - Mobility Orders Ambulate - Rehabiliation Orders Rehab Potential: Good Rehab Orders: Evaluation for Physical Therapy, Evaluation for Occupational Therapy - Diet Orders Cardiac CERTIFICATION: I certify that the transfer of the above named patient to an Extended Care Facility is necessary for the continuing treatment of the diagnosis listed. The above information is true and accurate reflection of patient's current condition. Confidential - Redisclosure prohibited without a patient's written consent.
== END 2017-03-28 19:00 ==
LOC: EMEROO 15:30 → 3ANU 15:30 → SUATTDRO 19:43 → 3ANU 20:32
PROVIDERS: ADMIT Hospitalist; ATTEND Internal Medicine

== ENCOUNTER 2017-05-01 17:01 | Observation (INO) ==
[2017-05-01] MEDS ORDERED: Nystatin POWDER 30 GM BOTTLE TP STA (17:07)
--- NOTE | 2017-05-01 17:18 | Emergency Department Note ---
Disposition Clinical Impression: Altered mental state Qualifiers: Altered mental status type: disorientation Qualified Code(s): R41.0 - Disorientation, unspecified UTI (urinary tract infection) Qualifiers: Urinary tract infection type: acute cystitis Hematuria presence: with hematuria Qualified Code(s): N30.01 - Acute cystitis with hematuria Disposition: Admitted As Inpatient Condition: Undetermined Referrals: Katharine Sarabia MD [Primary Care Provider] - Forms: ED Satisfaction Letter Time of Disposition: 19:44 General Adult HPI - General Chief complaint: ED Weakness Stated complaint: weakness, AMS Time Seen by Provider: 05/01/17 17:04 Source: patient, EMS Mode of arrival: EMS Limitations: no limitations Nursing Notes Reviewed: Yes Vital Signs Reviewed: Yes - History of Present Illness HPI Narrative: 81-year-old female with history of UTI arrives to the emergency department complaining of concern for urinary tract infection as well as bilateral breast fungal infection and yeast infection. The patient was recently discharged from rehabilitation facility and has been doing well at home but over the past 48 hours has continued to decline. Family apparently reported that the patient has been slightly altered. Upon arrival to the emergency department the patient is lucid and answering all questions appropriately. She does have bilateral breast fungal infection that is noticeable on visualization of underneath the breast tissue. Patient denies any other complaints at this time. Onset (ago): day(s) (2) Pain Scale: 0 Improves with: nothing Worsens with: nothing Associated symptoms: Reports: confusion (according to EMS) Treatments Prior to Arrival: none - Related Data Home Medications Medication Instructions Recorded Confirmed Docusate Sodium [Dok] 100 mg PO DAILY 08/29/16 03/23/17 Ibuprofen [Motrin] 800 mg PO TID PRN 08/29/16 03/23/17 Multivitamin [One Daily 1 tab PO DAILY 08/29/16 03/23/17 Multivitamin] [place]-3/Dha/Epa/Fish Oil [Fish Oil 1,000 mg PO DAILY 08/29/16 03/23/17 1,000 mg Softgel] Aspirin 81 mg PO DAILY 03/23/17 03/23/17 [place] 500 mg PO DAILY 05/01/17 05/01/17 Allergies Allergy/AdvReac Type Severity Reaction Status Date / Time No Known Allergies Allergy Verified 08/28/16 08:35 All systems ED: reviewed and negative except as stated. Constitutional: Denies: fever, chills, weakness ENT ED: Denies: congestion Cardiovascular: Denies: chest pain, dyspnea on exertion Respiratory: Denies: cough, dyspnea, wheezes Gastrointestinal: Denies: abdominal pain, nausea, vomiting Genitourinary: Reports: urgency, dysuria, frequency. Denies: hematuria, discharge Musculoskeletal: Denies: back pain, myalgia Integumentary: Reports: rash (Under breast) Past Medical History - Past Medical History Attestation: Yes The following information was validated with the patient. Source: patient Medical history: Reports: arthritis, DVT, hyperlipidemia, hypertension Surgical history: Reports: knee replacement Psychiatric history: Reports: other - Social History Smoking Status: Never smoker Smokeless Tobacco Status: No Alcohol use: Reports: none Drug use: Reports: none Physical Exam - General Limitations: no limitations General appearance: alert, in no apparent distress - Head Head exam: atraumatic, normocephalic, normal inspection - Eye Eye exam: Present: normal appearance, PERRL, EOMI - ENT ENT exam: normal exam, normal oropharynx, mucous membranes moist - Neck Neck exam: Present: normal inspection, full ROM, trachea midline - Chest Chest inspection: Present: symmetric chest wall rise, other (Patient has large area of erythema consistent with rufus under bilateral breast tissue.) - Respiratory Respiratory exam: Present: normal lung sounds bilaterally - Cardiovascular Cardiovascular exam: Present: regular rate, normal rhythm, normal heart sounds - Abdominal Exam Abdominal exam: Present: soft, Non-Tender. Absent: tenderness, distention, guarding, rebound, rigidity - Extremities Exam Extremities exam: Present: normal inspection, full ROM. Absent: tenderness, pedal edema - Neurological Exam Neurological exam: Present: alert, oriented X3, CN II-XII intact - Expanded Neurological Exam Patient oriented to: Present: person, place, time Speech: Present: fluid speech Cranial nerves: EOM function (II, III, IV, ): Normal, facial sensation (V): Normal, facial palsy (VII): Normal Motor strength - LUE: 5/5 Motor strength - RUE: 5/5 Motor strength - LLE: 5/5 Motor strength - RLE: 5/5 Sensory exam upper extremity: light touch: Normal Sensory exam lower extremity: light touch: Normal Coma Scale Eye Opening: Spontaneous Coma Scale Motor Response: Obeys Commands Coma Scale Verbal Response: Oriented Coma Scale Total: 15 Course - Reevaluation(s) Reevaluation #1: Upon evaluation by social organization professor who is familiar with the patient, it is noted that the patient is not at patient's baseline mental status. Time: 17:33 Vital Signs Temperature 97.4 F L 05/01/17 17:03 Pulse Rate 78 05/01/17 17:03 Respiratory Rate 18 05/01/17 17:03 Blood Pressure 139/84 05/01/17 17:03 O2 Sat by Pulse Oximetry 98 05/01/17 17:03 Temperature 97.4 F L 05/01/17 17:03 Pulse Rate 78 05/01/17 17:03 Respiratory Rate 18 05/01/17 17:03 Blood Pressure 139/84 05/01/17 17:03 O2 Sat by Pulse Oximetry 98 05/01/17 17:03 Oxygen Delivery Oxygen Delivery Room Air Medical Decision Making - MDM Narrative Medical decision making narrative: Patient is altered in her baseline according to family as well as social organization professor. She is answering questions appropriately but is not at her baseline per caregivers. The patient currently lives by herself but has family members as Neighbors. The patient does have a urinary tract infection and we will treat the patient with Rocephin. The patient will be admitted to the hospitalist service, accepted by Dr. eldridge. - Lab Data Lab results reviewed: Yes I reviewed the patient's lab results. Result diagrams: 05/01/17 17:45 05/01/17 17:45 Lab Results 05/01/17 05/01/17 05/01/17 Range/Units 17:45 17:45 18:25 WBC 7.5 (4.3-11.1) K/mcL RBC 4.34 (3.82-4.97) M/mcL Hgb 12.4 (11.5-15.4) g/dL Hct 39.0 (35.3-44.9) % MCV 89.9 (83.0-100.0) fL MCH 28.6 (28.0-33.3) pg MCHC 31.8 (31.6-35.5) g/dL RDW 13.8 (11.5-14.5) % Plt Count 278 (140-400) K/mcL MPV 9.1 L (9.4-12.4) fL Immature Gran % 0.3 (0-4) % Seg Neutrophils % 73.9 % Lymphocytes % 15.8 % Monocytes % 7.5 % Eosinophils % 2.0 % Basophils % 0.5 % Neutrophils # 5.6 (1.6-8.9) K/mcL Lymphocytes # 1.2 (0.6-4.6) K/mcL Monocytes # 0.6 (0.0-1.3) K/mcL Eosinophils # 0.2 (0.0-0.6) K/mcL Basophils # 0.0 (0.0-0.2) K/mcL Sodium 139 (136-145) mEq/L Potassium 3.9 (3.5-4.5) mEq/L Chloride 108 (98-109) mEq/L Carbon Dioxide 25 (19-29) mEq/L BUN 13 (7-20) mg/dL Creatinine 0.66 (0.57-1.11) mg/dL Est GFR ( Amer) > 60 (> 60) Est GFR (Non-Af Amer) > 60 (> 60) BUN/Creatinine Ratio 20 (6-26) Glucose 99 (70-99) mg/dL Calculated Osmolality 288 (280-300) Calcium 9.7 (8.6-10.8) mg/dL Urine Color Yellow (Yellow) Urine Clarity Clear (Clear) Urine pH 6.0 (5.0-8.0) pH Units Ur Specific [place] 1.025 (1.010-1.025) Urine Protein Negative (Neg-Trace) mg/dL Urine Glucose (UA) Normal (Normal) mg/dL Urine Ketones Negative (Negative) mg/dL Urine Blood Moderate H (Negative) Urine Nitrite Negative (Negative) Urine Bilirubin Negative (Negative) Urine Urobilinogen Normal (Normal) mg/dL Ur Leukocyte Esterase Small H (Negative) Urine Microscopic RBC 50-100 H (0-3) per hpf Urine Microscopic WBC 15-30 H (0-3) per hpf Ur Squamous Epith Cells Moderate H (None-Few) per lpf Urine Bacteria Moderate H (None-Few) per hpf Hyaline Casts None Seen (None-Few) per lpf Ur Culture Indicated? YES A (NO) - Radiology Data Radiology results reviewed: Yes I reviewed the patient's radiology results. Attestation Statement - Attestation Attestation: I examined this patient and my medical decision-making was reviewed with the Resident Physician. I agree with the documented findings, disposition and treatment plan as described except to the extent set forth below. Patient presents to the ED for altered mental status. Patient recently treated for UTI. Family was concerned she may have another. On our examination she is awake alert and pleasant. She is oriented. She does not appear to be altered. She denies any complaints. Denies any shortness of breath, nausea vomiting, pain of any kind. Plan. Altered mental status workup. Awaiting family arrival. UA. Patient with UTI. Family states confused from baseline. We will admit.
[2017-05-01 17:55] LABS: Basophils % 0.5 %; Eosinophils # 0.2 K/mcL (0.0-0.6); Hemoglobin 12.4 g/dL (11.5-15.4); Immature Granulocytes % 0.3 % (0-4); Lymphocytes # 1.2 K/mcL (0.6-4.6); Lymphocytes % 15.8 %; Mean Corpuscular HGB Conc 31.8 g/dL (31.6-35.5); Mean Corpuscular Hemoglobin 28.6 pg (28.0-33.3); Mean Corpuscular Volume 89.9 fL (83.0-100.0); Mean Platelet Volume 9.1 fL (9.4-12.4); Monocytes # 0.6 K/mcL (0.0-1.3); Monocytes % 7.5 %; Neutrophils # 5.6 K/mcL (1.6-8.9); Platelet Count 278 K/mcL (140-400); Red Blood Count 4.34 M/mcL (3.82-4.97); Red Cell Distribution Width 13.8 % (11.5-14.5); Segmented Neutrophils % 73.9 %
[2017-05-01 18:08] LABS: BUN/Creatinine Ratio 20 (6-26); Blood Urea Nitrogen 13 mg/dL (7-20); Calcium 9.7 mg/dL (8.6-10.8); Carbon Dioxide 25 mEq/L (19-29); Chloride 108 mEq/L (98-109); Glucose 99 mg/dL (70-99); Osmolality,Calculated 288 (280-300); Potassium 3.9 mEq/L (3.5-4.5); Sodium 139 mEq/L (136-145); eGFR For African Americans > 60 (> 60); eGFR For Non-African Americans > 60 (> 60)
[2017-05-01 18:38] LABS: Bilirubin,Urine Negative (Negative); Blood,Urine Moderate (Negative); Clarity,Urine Clear (Clear); Color,Urine Yellow (Yellow); Glucose,Urine (UA) Normal (Normal); Ketones,Urine Negative (Negative); Leukocyte Esterase,Urine Small (Negative); Nitrite,Urine Negative (Negative); Protein,Urine Negative (Neg-Trace); Specific Gravity,Urine 1.025 (1.010-1.025); Urobilinogen,Urine Normal (Normal)
[2017-05-01 18:41] LABS: Bacteria,Urine Moderate per hpf (None-Few); Hyaline Casts,Urine None Seen per lpf (None-Few); RBC,Urine 50-100 per hpf (0-3); Squamous Epithelial Cell,Urine Moderate per lpf (None-Few); WBC,Urine 15-30 per hpf (0-3)
[2017-05-01] MEDS ORDERED: 0.9 % Sodium Chloride 1,000 ML IVC ONE (19:00)
[2017-05-01] MEDS ORDERED: cefTRIAXone 1,000 MG in Water for inj. (sterile) 10 ML IVP ONE (19:00)
--- NOTE | 2017-05-02 00:28 | Internal Med History&Physical ---
Date of Encounter: 05/02/17 Time of Encounter: 11:00 Assessment and Plan (1) UTI (urinary tract infection) Current visit: No Status: Acute -Will continue ceftriaxone started in the ER Qualifiers: Urinary tract infection type: acute cystitis Hematuria presence: with hematuria Qualified Code(s): N30.01 - Acute cystitis with hematuria (2) DVT prophylaxis Current visit: No Status: Acute -SCDs Internal Medicine - H&P: HPI Admitted From: Home Plans for Post Hospital Care: Home History of present illness: Patient is an 81-year-old female with no significant past medical history who presents to the ER due to not feeling well. Patient is a very poor historian and family not present at bedside. Patient was rambling but did mention that she had frequent UTIs and thought she was having another one so came in for evaluation. In the ER, patient was found to have pyuria on urinalysis and will be admitted to the medical floor for treatment and management of acute cystitis with hematuria. Past Med Surg Social Fam HX - Past Medical History Medical history: arthritis, DVT, hyperlipidemia, hypertension Psychiatric history: other - Past Surgical History Surgical History: knee replacement - Social History Smoking Status: Never smoker Smokeless Tobacco Status: No Alcohol use: none Drug use: none - Family History Father Adopted: No Living Status: Hx Family Cardiac Disorders: Yes (UT) Hx Family Respiratory Disorders: No Hx Family Cancer: No Hx Family GI Disorders: No Hx Family Endocrine Disorder: No Hx Family Neuromuscular Disorders: No Hx Family Neurologic Disorders: No Hx Family HEENT Disorders: No Hx Family Autoimmune Disorders: No Mother Adopted: No Living Status: Hx Family Cardiac Disorders: Yes Hx Family Respiratory Disorders: No Hx Family Cancer: No Hx Family GI Disorders: No Hx Family Endocrine Disorder: Yes (Diabetes) Hx Family Neuromuscular Disorders: No Hx Family Neurologic Disorders: No Hx Family HEENT Disorders: No Hx Family Autoimmune Disorders: No Internal Medicine - H&P: Meds Docusate Sodium [Dok] 100 mg PO DAILY 08/29/16 [History] Ibuprofen [Motrin] 800 mg PO TID PRN 08/29/16 [History] Multivitamin [One Daily Multivitamin] 1 tab PO DAILY 08/29/16 [History] [place]-3/Dha/Epa/Fish Oil [Fish Oil 1,000 mg Softgel] 1,000 mg PO DAILY 08/29/16 [History] Aspirin 81 mg PO DAILY 03/23/17 [History] Cranberry 500 mg PO DAILY 05/01/17 [History] 3 Allergy/AdvReac Type Severity Reaction Status Date / Time No Known Allergies Allergy Verified 08/28/16 08:35 All Systems PM: A 10-system review of systems was performed and is negative for pertinent findings except as documented above in the HPI. - Constitutional Vitals: Temp Pulse Resp BP Pulse Ox 98.3 F 82 14 149/71 96 05/01/17 21:26 05/01/17 21:26 05/01/17 21:26 05/01/17 21:26 05/01/17 21:26 General appearance: Present: A&O X 3 - Head Head exam: Present: atraumatic, normocephalic - ENT ENT exam: Present: mucous membranes moist - Respiratory Respiratory exam: Present: CTAB. Absent: accessory muscle use, rales, rhonchi, wheezes - Cardiovascular Cardiovascular exam: Present: RRR, +S1, +S2. Absent: diastolic murmur, gallop, rubs, systolic murmur - GI/Abdominal GI/Abdominal exam: Present: normal bowel sounds, soft, no peritoneal signs. Absent: distended, tenderness - Extremities Exam Extremities exam: Present: warm. Absent: cyanotic, pedal edema - Neurological Exam Neurological exam: Present: alert - Psychiatric Psychiatric exam: Present: normal mood - Skin Skin exam: Present: normal color Internal Med - H&P Results - Labs CBC & Chem 7: 05/01/17 17:45 05/01/17 17:45
[2017-05-02] MEDS ORDERED: Naloxone 0.4 MG/ML INJ IVP PRN (00:32)
[2017-05-02] MEDS ORDERED: Ibuprofen 800 MG TABLET PO PRN (00:34)
[2017-05-02 04:52] LABS: Basophils # 0.1 K/mcL (0.0-0.2); Basophils % 0.9 %; Eosinophils # 0.1 K/mcL (0.0-0.6); Hematocrit 36.3 % (35.3-44.9); Hemoglobin 11.5 g/dL (11.5-15.4); Immature Granulocytes % 0.4 % (0-4); Lymphocytes # 1.4 K/mcL (0.6-4.6); Lymphocytes % 25.5 %; Mean Corpuscular HGB Conc 31.7 g/dL (31.6-35.5); Mean Corpuscular Hemoglobin 28.8 pg (28.0-33.3); Mean Platelet Volume 10.1 fL (9.4-12.4); Monocytes # 0.5 K/mcL (0.0-1.3); Monocytes % 8.7 %; Neutrophils # 3.4 K/mcL (1.6-8.9); Platelet Count 222 K/mcL (140-400); Red Blood Count 3.99 M/mcL (3.82-4.97); Red Cell Distribution Width 13.8 % (11.5-14.5); Segmented Neutrophils % 62.5 %
[2017-05-02 05:00] LABS: BUN/Creatinine Ratio 19 (6-26); Blood Urea Nitrogen 11 mg/dL (7-20); Calcium 8.7 mg/dL (8.6-10.8); Carbon Dioxide 19 mEq/L (19-29); Chloride 110 mEq/L (98-109); Glucose 84 mg/dL (70-99); Osmolality,Calculated 289 (280-300); Potassium 3.8 mEq/L (3.5-4.5); Sodium 140 mEq/L (136-145); eGFR For African Americans > 60 (> 60); eGFR For Non-African Americans > 60 (> 60)
[2017-05-02 05:22] LABS: Platelet Estimate Normal (Normal)
[2017-05-02] MEDS: Aspirin 81 MG TAB.CHEW PO SCH (08:48)
[2017-05-02] MEDS: cefTRIAXone 1,000 MG in Water for inj. (sterile) 10 ML IVP SCH (08:48)
--- NOTE | 2017-05-02 16:49 | Event Note ---
Date of Encounter: 05/02/17 Time of Encounter: 15:55 She was seen and assessed at bedside about 1545. Patient is alert, oriented, extremely pleasant. She states that she feels better, however she is tired. She denies any urinary s/s and has had no fever, chills, flank, or abdominal pain. Pt lives at home with her sister and has family very close and are very supportive and helpful. Pt is agreeable to staying to see PT on Thursday if she is not feeling better and stronger tomorrow. She will stay overnight for hydration and IV antibiotics. Prior UTI in January, culture grew e. Coli. Head CT negative for any acute intracranial reality, nonspecific hypodensities that may represent chronic small vessel ischemic change. Labs are within normal limits. Urine with a moderate amount of blood, small leukocyte esterase positive for microscopic regimen white cells, moderate amount of bacteria, urine culture is pending. Pt denies n/v, dizziness, headache, syncope, SOB, chest pain, dyspnea, n/v/d, or abdominal pain. Physical exam is unremarkable. Skin is p/w/d, resps unlabored, no ronchi, no wheezing, no rales, or respiratory distress. S1S2 heard, RRR without gallops, clicks, or murmurs. Abdomen is soft and nontender to palpation. Pt with minimal peripheral edema, +1 non-pitting BLE. Plan is to continue IV antibiotics, IV fluids, rest, reassess in a.m for strength. PT/OT for evaluation if pt is not feeling better.
[2017-05-03] MEDS: cefTRIAXone 1,000 MG in Water for inj. (sterile) 10 ML IVP SCH ×2 (07:37→08:32)
[2017-05-03] MEDS: Aspirin 81 MG TAB.CHEW PO SCH (07:38)
--- NOTE | 2017-05-03 09:46 | Discharge Summary ---
Date of Encounter: 05/03/17 Time of Encounter: 08:10 - Discharge Diagnosis (1) UTI (urinary tract infection) Priority: Primary Status: Acute Comments: Pt presented to ED from home with c/o "not feeling well". She was found to have a UTI and was treated with Rocephin IV. Initial culture shows gram negative rods. She will be sent home with Rx for Bactrim. Pt with UTI in January, culture positive for E. coli, susceptible to Bactrim. Pt denies urinary s/s. She is afebrile, no leukocytosis, no tachycardia. She has no CVA tenderness, no abdominal pain. She is stable for discharge and has family at home to care for her. Qualifiers: Urinary tract infection type: acute cystitis Hematuria presence: with hematuria Qualified Code(s): N30.01 - Acute cystitis with hematuria (2) DVT prophylaxis Priority: Secondary Status: Acute Comments: Pt has been up to bedside, chair, has amb with staff. (3) Weakness Priority: Secondary Status: Chronic Comments: Pt was recently discharged from [facility] after PT rehab completed. She was discharged with home health pending, according to pt and family, [facility] is still setting it up, pending status. Pt has multiple family members who live near her and family who live with her and has plenty of help when she is home. Pt was ambulated in the hallway by primary RN with a walker and seemed to do well. - Discharge Medications Prescriptions: Sulfamethoxazole/Trimeth DS [Bactrim DS] 1 each PO BID #14 tablet Home Medications: Docusate Sodium [Dok] 100 mg PO DAILY 08/29/16 [History] Ibuprofen [Motrin] 800 mg PO TID PRN 08/29/16 [History] Multivitamin [One Daily Multivitamin] 1 tab PO DAILY 08/29/16 [History] [place]-3/Dha/Epa/Fish Oil [Fish Oil 1,000 mg Softgel] 1,000 mg PO DAILY 08/29/16 [History] Aspirin 81 mg PO DAILY 03/23/17 [History] Cranberry 500 mg PO DAILY 05/01/17 [History] Sulfamethoxazole/Trimeth DS [Bactrim DS] 1 each PO BID #14 tablet 05/03/17 [Rx] Allergies/Adverse Reactions: 3 Allergy/AdvReac Type Severity Reaction Status Date / Time No Known Allergies Allergy Verified 08/28/16 08:35 Date of admission: 05/01/17 20:03 Primary care physician: Katharine Sarabia Discharging clinician: Amanda Valentine Anticipated date of discharge: 05/03/17 - Patient Status Disposition: Home, Self-Care Condition: Good Functional capacity at discharge: uses cane/walker Overall status at discharge: patient is progressing back to baseline - Discharge Instructions Follow Up With: Katharine Sarabia MD [Primary Care Provider] - Additional Instructions: Please see your family doctor for a recheck in the next week or 2. Resume your normal medications Take your Bactrim tonight. Take it every 12 hours until it is gone. Drink plenty of fluids. Return to your normal activites and diet as tolerated. Return to the ER as needed for any other problems or concerns, or if you develop a fever, chills, back or abdominal pain, or have blood in your urine. - Diet and Activity Activity: ambulate only with your walker, as per physical therapy Diet: advance to your usual diet Interval History: Please see assessment and plan for hospital course. Hospital course: Ms. Humphrey is a 81 year old female - Time Spent with Patient Total time spent providing and/or coordinating discharge services: - Constitutional Vitals: Temp Pulse Resp BP Pulse Ox 97.6 F 78 16 138/86 95 05/03/17 06:34 05/03/17 06:34 05/03/17 06:34 05/03/17 06:34 05/03/17 06:34 General appearance: Present: cooperative, A&O X 3, pleasant, no acute distress, answers questions appropriately - Head Head exam: Present: atraumatic, normal inspection, normocephalic - Eye Eye exam: Present: normal appearance, conjuntiva pink, sclera anicteric - Neck Neck exam general surgery: Present: supple, trachea midline. Absent: lymphadenopathy - Respiratory Respiratory exam: Present: CTAB. Absent: accessory muscle use, rales, rhonchi, wheezes - Cardiovascular Cardiovascular exam: Present: RRR, +S1, +S2. Absent: diastolic murmur, gallop, rubs, systolic murmur - GI/Abdominal GI/Abdominal exam: Present: normal bowel sounds, soft. Absent: distended, guarding, rebound, tenderness - Extremities Exam Extremities exam: Present: normal capillary refill, normal inspection, warm, radial pulses palpable and symmetrical. Absent: calf tenderness, cyanotic, pedal edema, tenderness - Neurological Exam Neurological exam: Present: alert, oriented X3, no focal deficits. Absent: altered, facial droop, speech deficit - Skin Skin exam: Present: dry, intact, normal color, warm. Absent: rash
[2017-05-03] MEDS ORDERED: Sulfamethoxazole/Trimeth DS 1 EACH TABLET PO STA (10:23)
[2017-05-04] MEDS: Aspirin 81 MG TAB.CHEW PO SCH (08:52)
[2017-05-04] MEDS: Cefuroxime PO 250 MG TABLET PO SCH (18:01)
--- NOTE | 2017-05-04 18:36 | Internal Med Progress Note ---
Date of Encounter: 05/04/17 Time of Encounter: 08:30 - Assessment and plan (1) UTI (urinary tract infection) Current Visit: Yes Status: Acute Assessment and plan: Pt presented to ED from home with c/o "not feeling well". She was found to have a UTI and was treated with Rocephin IV. Initial culture shows gram negative rods. Final culture positive for Proteus mirabilis. It is resistant to Levaquin, Macrobid, and Bactrim. Discussed with pharmacy, patient will be sent home on Ceftin 250 mg twice daily for 10 days. Pt denies urinary s/s. She is afebrile, no leukocytosis, no tachycardia. She has no CVA tenderness, no abdominal pain. Qualifiers: Urinary tract infection type: acute cystitis Hematuria presence: with hematuria Qualified Code(s): N30.01 - Acute cystitis with hematuria (2) DVT prophylaxis Current Visit: No Status: Acute Assessment and plan: Patient has been up to bedside, chair, has ambulated to and from bathroom. Continue to encourage ambulation. (3) Weakness Current Visit: Yes Status: Chronic Assessment and plan: Pt was recently discharged from [facility] after PT rehab completed. She was discharged with home health pending, according to pt and family, [facility] is still setting it up, pending status. Pt has multiple family members who live near her and family who live with her and has plenty of help when she is home. Pt was ambulated in the hallway by primary RN with a walker and seemed to do well. I was going to discharge patient yesterday, family calls and states they do not feel safe with her coming home and would like for her to [facility] for [facility]. She was seen by PT and OT today, they agree that she needs to go to SNF for continued therapy. homeworker is on board for discharge planning. Patient is alert and oriented and feels that she can return home at discharge with home health. homeworker discussed the patient the fact that the family feels that she should return to SNF for short stay. Patient will need to pay a co-pay of $150 a day and she feels that she cannot afford this. She may be out of her days for medical benefits. homeworker discussed she should think about making payments, patient states that she would like to go home still with home health. Sure close attempting to speak with family regarding the situation, she was unable to reach them tonight and will try again in the morning. - Time Spent With Patient less than 15 minutes - Subjective Interval history: She was seen and assessed at 8:30 AM. She is alert, awake, oriented, exceptionally pleasant. She states that she wants to go home. Is aware that her family wants her to go back to the [facility]. Patient is very weak and does require assistance 2 to get up, however with a walker she does walk slowly. Therapy finally saw her today and recommended that she discharged to SNF for continued rehabilitation. homeworker is on board to help with placement. - Constitutional Vitals: Temp Pulse Resp BP Pulse Ox 97.7 F 78 14 107/71 96 05/04/17 14:48 05/04/17 14:48 05/04/17 14:48 05/04/17 14:48 05/04/17 14:48 General appearance: Present: cooperative, A&O X 3, pleasant, no acute distress, answers questions appropriately - Head Head exam: Present: atraumatic, normal inspection, normocephalic - Eye Eye exam: Present: normal appearance, conjuntiva pink, sclera anicteric - Neck Neck exam general surgery: Present: supple, trachea midline. Absent: lymphadenopathy - Respiratory Respiratory exam: Present: CTAB. Absent: accessory muscle use, rales, rhonchi, wheezes - Cardiovascular Cardiovascular exam: Present: RRR, +S1, +S2. Absent: diastolic murmur, gallop, rubs, systolic murmur - GI/Abdominal GI/Abdominal exam: Present: normal bowel sounds, soft. Absent: distended, tenderness - Extremities Exam Extremities exam: Present: normal inspection, warm, radial pulses palpable and symmetrical. Absent: calf tenderness, cyanotic, pedal edema, tenderness - Neurological Exam Neurological exam: Present: alert, no focal deficits. Absent: facial droop, speech deficit - Skin Skin exam: Present: dry, intact, normal color, warm. Absent: rash Internal Medicine: Result - Labs CBC & Chem 7: 05/02/17 04:11 05/02/17 04:11 Consult Discharge Plan - Plan Additional Instructions: Please see your family doctor for a recheck in the next week or 2. Resume your normal medications Take your Bactrim tonight. Take it every 12 hours until it is gone. Drink plenty of fluids. Return to your normal activites and diet as tolerated. Return to the ER as needed for any other problems or concerns, or if you develop a fever, chills, back or abdominal pain, or have blood in your urine. Referrals: Katharine Sarabia MD [Primary Care Provider] - Prescriptions: Sulfamethoxazole/Trimeth DS [Bactrim DS] 1 each PO BID #14 tablet
[2017-05-04] MEDS: cefTRIAXone 1,000 MG in Water for inj. (sterile) 10 ML IVP SCH (22:37)
[2017-05-05] MEDS: Cefuroxime PO 250 MG TABLET PO SCH ×2 (04:56→17:39)
[2017-05-05] MEDS: Aspirin 81 MG TAB.CHEW PO SCH (08:45)
[2017-05-05 15:49] VITALS: BP 127/70
--- NOTE | 2017-05-05 15:59 | Discharge Summary ---
Date of Encounter: 05/05/17 Time of Encounter: 15:47 - Discharge Diagnosis (1) UTI (urinary tract infection) Priority: Primary Status: Acute Comments: Leni Humphrey is an 81-year-old female with no significant past medical history who presented to [facility] on 05/01/2017 with reports of not feeling well. She was found to have a UTI and was treated with IV ATB. She was discharged home on 05/05/2017 in stable condition with outpatient follow-up. 1. UTI: UA indicative of UTI, urine culture was Proteus (resistant to ampicillin, levofloxacin nitrofurantoin and Bactrim). Sensitive to ceftriaxone. ATB changed to Ceftin 250 mg every 12 hours for 10 days at discharge. 2. Generalized weakness with functional decline: Lives alone, evaluated by PT/ OT who recommended SNF however she is in her co-pay days for placement and does not have financial means to afford at this time. Discharge home with home healthcare. Qualifiers: Urinary tract infection type: acute cystitis Hematuria presence: with hematuria Qualified Code(s): N30.01 - Acute cystitis with hematuria - Discharge Medications Prescriptions: Cefuroxime PO [Ceftin] 250 mg PO Q12HR #20 tablet Home Medications: Docusate Sodium [Dok] 100 mg PO DAILY 08/29/16 [History] Ibuprofen [Motrin] 800 mg PO TID PRN 08/29/16 [History] Multivitamin [One Daily Multivitamin] 1 tab PO DAILY 08/29/16 [History] [place]-3/Dha/Epa/Fish Oil [Fish Oil 1,000 mg Softgel] 1,000 mg PO DAILY 08/29/16 [History] Aspirin 81 mg PO DAILY 03/23/17 [History] Cranberry 500 mg PO DAILY 05/01/17 [History] Cefuroxime PO [Ceftin] 250 mg PO Q12HR #20 tablet 05/05/17 [Rx] Allergies/Adverse Reactions: 3 Allergy/AdvReac Type Severity Reaction Status Date / Time No Known Allergies Allergy Verified 08/28/16 08:35 Date of admission: 05/01/17 20:03 Primary care physician: Katharine Sarabia Consults: 05/03/17 11:58 Consult to Occupational Therapy [CONS] Routine Comment: Evaluate, develop and implement POC Reason for Consult: evaluation Consult to Physical Therapy [CONS] Routine Comment: Evaluate, develop and implement POC Reason for Consult: evaluation Consult to Trial Judge [CONS] Routine Reason for SW Consult: discharge planning Discharging clinician: Heather Rangel Anticipated date of discharge: 05/05/17 - Patient Status Disposition: Home Health Service Condition: Good Functional capacity at discharge: uses cane/walker Overall status at discharge: patient is back to baseline - Discharge Instructions Instructions: Cefuroxime (By mouth), Urinary Tract Infection in Women (DC), Fall Prevention for Older Adults (GEN), Weakness (GEN), Fall Prevention (DC) Follow Up With: Katharine Sarabia MD [Primary Care Provider] - 05/11/17 1:45 pm Additional Instructions: Please see your family doctor for a recheck within 5-7 days Resume your normal medications Drink plenty of fluids. Return to your normal activities and diet as tolerated. Return to the ER as needed for any other problems or concerns, or if you develop a fever, chills, back or abdominal pain, or have blood in your urine. - Diet and Activity Activity: ambulate only with your walker, increase activity as tolerated Diet: advance to your usual diet Interval History: Seen and examined at bedside. Patient is new to me, information obtained from chart review and patient report. Patient says she has feels better and wants to go home, she is alert to self and face only. No family around for collateral. Patient says she feels back to baseline and wants to discharge today. She denies chest pain, no shortness of breath. No abdominal pain, no dysuria. Hospital course: See assessment and plan for hospital course. - Time Spent with Patient Total time spent providing and/or coordinating discharge services: - Constitutional Vitals: Temp Pulse Resp BP Pulse Ox 98.3 F 79 17 101/51 95 05/05/17 11:28 05/05/17 11:28 05/05/17 11:28 05/05/17 11:28 05/05/17 11:28 General appearance: Present: cooperative, A&O X 2, pleasant, no acute distress, answers questions appropriately - Head Head exam: Present: atraumatic, normocephalic - Eye Eye exam: Present: PERRL, conjuntiva pink, sclera anicteric Pupils: Present: PERRL - Neck Neck exam general surgery: Present: supple, trachea midline. Absent: lymphadenopathy - Respiratory Respiratory exam: Present: CTAB. Absent: accessory muscle use, rales, rhonchi, wheezes - Cardiovascular Cardiovascular exam: Present: RRR, +S1, +S2. Absent: diastolic murmur, gallop, rubs, systolic murmur - GI/Abdominal GI/Abdominal exam: Present: normal bowel sounds, soft, no peritoneal signs. Absent: distended, tenderness - Extremities Exam Extremities exam: Present: warm, radial pulses palpable and symmetrical. Absent : calf tenderness, cyanotic, pedal edema - Neurological Exam Neurological exam: Present: CN II-XII intact, no focal deficits. Absent: pronater drift, facial droop, speech deficit - Skin Skin exam: Present: dry, intact
--- NOTE | 2017-05-05 16:14 | Physician Discharge Referral ---
<Heather Rangel - Last Filed: 05/05/17 16:14> Home Health/Hosp Referral Info Transfer to: Home Health Attending Provider: Heather Rangel CNP Provider in Charge Post Discharge: PCP - Diagnosis (1) UTI (urinary tract infection) Status: Acute - Respiratory Orders None Smoking Cessation: Smoking cessation has been advised. For more information, call the [place] [employer] Quit Line at 3-243-LLQA-NOW. - Diet/Nutrition Diet/Nutrition Orders: Regular - Activity Activity Orders: Walker - Services Needed Following services are medically necessary services: Nursing, Home Health Aide, Physical Therapy, Occupational Therapy - Transfer Medications Prescriptions: Cefuroxime PO [Ceftin] 250 mg PO Q12HR #20 tablet Home Medications: Docusate Sodium [Dok] 100 mg PO DAILY 08/29/16 [History] Ibuprofen [Motrin] 800 mg PO TID PRN 08/29/16 [History] Multivitamin [One Daily Multivitamin] 1 tab PO DAILY 08/29/16 [History] [place]-3/Dha/Epa/Fish Oil [Fish Oil 1,000 mg Softgel] 1,000 mg PO DAILY 08/29/16 [History] Aspirin 81 mg PO DAILY 03/23/17 [History] Cranberry 500 mg PO DAILY 05/01/17 [History] Cefuroxime PO [Ceftin] 250 mg PO Q12HR #20 tablet 05/05/17 [Rx] Allergies/Adverse Reactions: 3 Allergy/AdvReac Type Severity Reaction Status Date / Time No Known Allergies Allergy Verified 08/28/16 08:35 Certification: Further, I certify that my clinical findings support that this patient is homebound (i.e. absences from home require considerable and taxing effort and are for medical reasons or zoroastrianism services or infrequently or short duration when for other reasons) because: Homebound Reason: Patient requires assistance of a person or device to safely leave home Attestation: My signature below is to certify that this patient is under my care and that I, or nurse practitioner, or a physician's triage assistant working with me, has a face-to -face encounter with this patient. <Dave Rodriguez - Last Filed: 05/05/17 18:15> - Respiratory Orders Smoking Cessation: Smoking cessation has been advised. For more information, call the [place] [employer] Quit Line at 3-138-MPZB-NOW. Certification: Further, I certify that my clinical findings support that this patient is homebound (i.e. absences from home require considerable and taxing effort and are for medical reasons or zoroastrianism services or infrequently or short duration when for other reasons) because: Attestation: My signature below is to certify that this patient is under my care and that I, or nurse practitioner, or a physician's triage assistant working with me, has a face-to -face encounter with this patient.
== END 2017-05-05 18:50 | disposition home health service (06) ==
LOC: EMEROO 17:01 → 3BNU 17:01
PROVIDERS: ADMIT Hospitalist; ATTEND Registered Nurse

== ENCOUNTER 2017-05-11 09:35 | Inpatient (IN) ==
--- NOTE | 2017-05-11 09:47 | Emergency Department Note ---
Disposition Clinical Impression: Altered mental status, Hypothermia, Rhabdomyolysis, Leukocytosis Disposition: Admitted As Inpatient Condition: Fair Time of Disposition: 14:15 Altered Mental Status HPI - General Chief Complaint: ED Altered Mental Status Stated Complaint: Confusion Time Seen by Provider: 05/11/17 09:40 Source: patient, EMS Mode of arrival: EMS Limitations: altered mental status Nursing Notes Reviewed: Yes Vital Signs Reviewed: Yes - History of Present Illness HPI Narrative: Patient is an 81-year-old female with HTN, HLD, recent UTI diagnosis. She presents today due to altered mental status. EMS was called to her house due to her being found in bathroom floor. She lives with family. Family was unaware of how long she was down. Patient herself is confused on presentation. She is uncertain of any details prior to or after the fall. She currently denies any headache, chest pain, shortness breath, nausea, vomiting, abdominal pain. She does have large visible bruises on her right arm but she denies any pain of the right shoulder or right upper arm. She also was noted to have a large skin breakdown area that looks like possible ulceration from laying on something for a long period of time. She denies any pain of the low back where this lesion is. EMS and the patient do state that she is currently being treated for a UTI, patient says that she is currently taking antibiotics but cannot tell me what she is taking. This patient is apparently known to our ED social services specialist and has had social issues at home surrounding care in the past. - Related Data Home Medications Medication Instructions Recorded Confirmed Docusate Sodium [Dok] 100 mg PO DAILY 08/29/16 05/11/17 Ibuprofen [Motrin] 800 mg PO TID PRN 08/29/16 05/11/17 Multivitamin [One Daily 1 tab PO DAILY 08/29/16 05/11/17 Multivitamin] [place]-3/Dha/Epa/Fish Oil [Fish Oil 1,000 mg PO DAILY 08/29/16 05/11/17 1,000 mg Softgel] Aspirin 81 mg PO DAILY 03/23/17 05/11/17 Cranberry 500 mg PO DAILY 05/01/17 05/11/17 Cefuroxime Axetil [Cefuroxime] 500 mg PO DAILY 05/11/17 05/11/17 Allergies Allergy/AdvReac Type Severity Reaction Status Date / Time No Known Allergies Allergy Verified 08/28/16 08:35 Limitations: ROS unobtainable due to patients medical condition Past Medical History - Past Medical History Attestation: Yes The following information was validated with the patient. Source: patient Medical history: Reports: arthritis, DVT, hyperlipidemia, hypertension Surgical history: Reports: knee replacement Psychiatric history: Reports: other - Social History Smoking Status: Never smoker Smokeless Tobacco Status: No Alcohol use: Reports: none Drug use: Reports: none Physical Exam - General Limitations: altered mental status General appearance: alert, other (Confused) - Head Head exam: atraumatic, normocephalic, normal inspection - Eye Eye exam: Present: normal appearance, PERRL, EOMI - ENT ENT exam: normal exam, normal oropharynx, mucous membranes moist - Neck Neck exam: Present: normal inspection, full ROM, trachea midline. Absent: tenderness - Chest Chest inspection: Present: normal inspection, symmetric chest wall rise. Absent : tenderness - Respiratory Respiratory exam: Present: normal lung sounds bilaterally - Cardiovascular Cardiovascular exam: Present: regular rate, normal rhythm, normal heart sounds - Abdominal Exam Abdominal exam: Present: soft, Non-Tender. Absent: tenderness, distention, guarding, rebound, rigidity - Extremities Exam Extremities exam: Present: other (Large bruise of the right lateral shoulder and proximal right upper arm. No bony abnormality appreciated. Full range of motion intact of the right upper extremity. Significant edema of the bilateral lower extremities with posterior tibial pulses intact bilaterally.) - Back Exam Back exam: Present: other (Linear lesion of the left paraspinal lumbar region. Appears to be a deep 0.5cm depth by approx 15cm linear skin breakdown with associated induration. ) - Neurological Exam Neurological exam: Present: alert, CN II-XII intact, other (confused, slow to answer questions, tangential thoughts, oriented x3 but slow to answer these questions) - Psychiatric Psychiatric exam: Present: other (confused) - Skin Skin exam: Present: warm, dry, normal color, other (see above extremity section and back section) Course Course Narrative: Patient temperature was 93.5 on presentation. She was placed on bear hugger warmer. The rest of her vitals were within normal limits. Physical exam shows a confused patient is alert but slow to answer questions, pleasantly confused. Currently eating treated for UTI. Heart and lung exam within normal limits. te rest of the exam shows: Large bruise of the right lateral shoulder and proximal right upper arm. No bony abnormality appreciated. Full range of motion intact of the right upper extremity. Significant edema of the bilateral lower extremities with posterior tibial pulses intact bilaterally. Linear lesion of the left paraspinal lumbar region. Appears to be a deep 0.5cm depth by approx 15cm linear skin breakdown with associated induration. We will order head CT, cervical spine CT, EKG, chest x-ray, basic blood work, troponin, urinalysis. We will also obtain creatinine kinase level. EKG shows normal sinus rhythm with no acute ST changes. 14:[address] of the head, cervical spine, chest x-ray, right shoulder showed no acute abnormalities. Blood work showed leukocytosis, CK elevated indicating rhabdomyolysis although creatinine and BUN within normal limits. Troponin negative. With leukocytosis, hypothermia, altered mental status, will admit the patient for further care. I do not have a clear source of any infection at this time as urinalysis is negative, chest x-ray negative. Cervical Spine CT 05/11/17 09:45 IMPRESSION: No acute abnormality of the cervical spine. D/ / Toni Lopez MD / Toni Lopez MD Interpreting Provider: oTni Lopez MD Chest X-Ray 05/11/17 09:45 IMPRESSION: No acute process. D/ / Damon Valerio MD / Damon Valerio MD Interpreting Provider: Damon Valerio MD Head CT 05/11/17 09:45 IMPRESSION: Sequela of chronic small vessel ischemic change. No acute intracranial abnormality seen. D/ / 05/11/2017 10:55:54 Jimmy Kenyon MD / irene Interpreting Provider: Jimmy Kenyon MD Shoulder X-Ray 05/11/17 09:46 IMPRESSION: 1. No acute fracture. 2. Degenerative changes at the acromioclavicular joint. 3. Downward spurring of the acromion can predispose to rotator cuff impingement. D/ / Rangel Colvin MD / Rangel Colvin MD Interpreting Provider: Rangel Colvin MD Abdomen/Pelvis CT 05/11/17 10:46 IMPRESSION: No acute process D/ / Toni Lopez MD / Toni Lopez MD Interpreting Provider: Toni Lopez MD Vital Signs Temperature 93.5 F L 05/11/17 09:36 Pulse Rate 67 05/11/17 09:36 Respiratory Rate 16 05/11/17 09:36 Blood Pressure 121/72 05/11/17 09:36 O2 Sat by Pulse Oximetry 97 05/11/17 09:36 Temperature 97.8 F 05/11/17 14:08 Pulse Rate 86 05/11/17 12:19 Respiratory Rate 12 05/11/17 14:08 Blood Pressure 109/86 05/11/17 14:08 O2 Sat by Pulse Oximetry 97 05/11/17 12:19 Oxygen Delivery Oxygen Delivery Room Air Altered Mental Status - MDM Narrative Medical decision making narrative: CT of the head, cervical spine, chest x-ray, right shoulder showed no acute abnormalities. Blood work showed leukocytosis, CK elevated indicating rhabdomyolysis although creatinine and BUN within normal limits. Patient given 1L NS warmed fluids and placed on maintenance fluids. Troponin negative. With leukocytosis, hypothermia (temp improving after ja hugger and warmed fluids), altered mental status, will admit the patient for further care. I do not have a clear source of any infection at this time as urinalysis is negative, chest x- ray negative. - Medical Records Medical records reviewed: Yes I reviewed the patient's medical records. - Lab Data Lab results reviewed: Yes I reviewed the patient's lab results. Result diagrams: 05/11/17 11:03 05/11/17 11:03 Lab Results 05/11/17 05/11/1717 Range/Units 09:48 10:03 11:03 WBC 19.6 H (4.3-11.1) K/mcL RBC 3.97 (3.82-4.97) M/mcL Hgb 11.4 L (11.5-15.4) g/dL Hct 35.9 (35.3-44.9) % MCV 90.4 (83.0-100.0) fL MCH 28.7 (28.0-33.3) pg MCHC 31.8 (31.6-35.5) g/dL RDW 13.8 (11.5-14.5) % Plt Count 310 (140-400) K/mcL MPV 8.7 L (9.4-12.4) fL Immature Gran % 0.3 (0-4) % Seg Neutrophils % 88.9 % Lymphocytes % 4.5 % Monocytes % 6.2 % Eosinophils % 0.0 % Basophils % 0.1 % Neutrophils # 17.4 H (1.6-8.9) K/mcL Lymphocytes # 0.9 (0.6-4.6) K/mcL Monocytes # 1.2 (0.0-1.3) K/mcL Eosinophils # 0.0 (0.0-0.6) K/mcL Basophils # 0.0 (0.0-0.2) K/mcL Immature Plt Fraction 1.6 (1.1-6.1) % PT (9.4-12.1) Seconds INR APTT (26.0-36.0) Seconds Sodium (136-145) mEq/L Potassium (3.5-4.5) mEq/L Chloride (98-109) mEq/L Carbon Dioxide (19-29) mEq/L BUN (7-20) mg/dL Creatinine (0.57-1.11) mg/dL Est GFR ( Amer) (> 60) Est GFR (Non-Af Amer) (> 60) BUN/Creatinine Ratio (6-26) Glucose (70-99) mg/dL POC Glucose 152 H (58-89) Calculated Osmolality (280-300) Calcium (8.6-10.8) mg/dL Creatine Kinase (29-168) Units/L Troponin I (0-0.03) ng/mL TSH (0.350-4.840) mcIU/mL Ur Specimen Adequacy See below A Urine Color Yellow (Yellow) Urine Clarity Cloudy A (Clear) Urine pH 5.5 (5.0-8.0) pH Units Ur Specific Plain 1.024 (1.010-1.025) Urine Protein 30 H (Neg-Trace) mg/dL Urine Glucose (UA) Normal (Normal) mg/dL Urine Ketones Trace H (Negative) mg/dL Urine Blood Moderate H (Negative) Urine Nitrite Negative (Negative) Urine Bilirubin Negative (Negative) Urine Urobilinogen Normal (Normal) mg/dL Ur Leukocyte Esterase Negative (Negative) Urine Microscopic RBC 0-3 (0-3) per hpf Urine Microscopic WBC 0-3 (0-3) per hpf Ur Squamous Epith Cells Many H (None-Few) per lpf Ur Culture Indicated? NO (NO) 05/11/17 05/11/17 05/11/17 Range/Units 11:03 11:03 11:03 WBC (4.3-11.1) K/mcL RBC (3.82-4.97) M/mcL Hgb (11.5-15.4) g/dL Hct (35.3-44.9) % MCV (83.0-100.0) fL MCH (28.0-33.3) pg MCHC (31.6-35.5) g/dL RDW (11.5-14.5) % Plt Count (140-400) K/mcL MPV (9.4-12.4) fL Immature Gran % (0-4) % Seg Neutrophils % % Lymphocytes % % Monocytes % % Eosinophils % % Basophils % % Neutrophils # (1.6-8.9) K/mcL Lymphocytes # (0.6-4.6) K/mcL Monocytes # (0.0-1.3) K/mcL Eosinophils # (0.0-0.6) K/mcL Basophils # (0.0-0.2) K/mcL Immature Plt Fraction (1.1-6.1) % PT 11.3 (9.4-12.1) Seconds INR 1.1 APTT 22.5 L (26.0-36.0) Seconds Sodium 139 (136-145) mEq/L Potassium 4.1 (3.5-4.5) mEq/L Chloride 109 (98-109) mEq/L Carbon Dioxide 21 (19-29) mEq/L BUN 23 H (7-20) mg/dL Creatinine 0.63 (0.57-1.11) mg/dL Est GFR ( Amer) > 60 (> 60) Est GFR (Non-Af Amer) > 60 (> 60) BUN/Creatinine Ratio 37 H (6-26) Glucose 132 H (70-99) mg/dL POC Glucose (58-89) Calculated Osmolality 294 (280-300) Calcium 9.5 (8.6-10.8) mg/dL Creatine Kinase 4107 H (29-168) Units/L Troponin I 0.01 (0-0.03) ng/mL TSH 1.992 (0.350-4.840) mcIU/mL Ur Specimen Adequacy Urine Color (Yellow) Urine Clarity (Clear) Urine pH (5.0-8.0) pH Units Ur Specific Plain (1.010-1.025) Urine Protein (Neg-Trace) mg/dL Urine Glucose (UA) (Normal) mg/dL Urine Ketones (Negative) mg/dL Urine Blood (Negative) Urine Nitrite (Negative) Urine Bilirubin (Negative) Urine Urobilinogen (Normal) mg/dL Ur Leukocyte Esterase (Negative) Urine Microscopic RBC (0-3) per hpf Urine Microscopic WBC (0-3) per hpf Ur Squamous Epith Cells (None-Few) per lpf Ur Culture Indicated? (NO) - Radiology Data Radiology results reviewed: Yes I reviewed the patient's radiology results. Cervical Spine CT 05/11/17 09:45 IMPRESSION: No acute abnormality of the cervical spine. D/ / Toni Lopez MD / Toni Lopez MD Interpreting Provider: Toni Lopez MD Chest X-Ray 05/11/17 09:45 IMPRESSION: No acute process. D/ / Damon Valerio MD / Damon Valerio MD Interpreting Provider: Damon Valerio MD Head CT 05/11/17 09:45 IMPRESSION: Sequela of chronic small vessel ischemic change. No acute intracranial abnormality seen. D/ / 05/11/2017 10:55:54 Jimmy Kenyon MD / irene Interpreting Provider: Jimmy Kenyon MD Shoulder X-Ray 05/11/17 09:46 IMPRESSION: 1. No acute fracture. 2. Degenerative changes at the acromioclavicular joint. 3. Downward spurring of the acromion can predispose to rotator cuff impingement. D/ / Rangel Colvin MD / Rangel Colvin MD Interpreting Provider: Rangel Colvin MD Abdomen/Pelvis CT 05/11/17 10:46 IMPRESSION: No acute process D/ / Toni Lopez MD / Toni Lopez MD Interpreting Provider: Toni Lopez MD - EKG Data EKG attestation: Yes I reviewed and interpreted this EKG. EKG results narrative: May 11 2017 at 09:39. Normal sinus rhythm. Rate 63. CO 179. QRS 94. QTC [address] elevation or depression. No acute changes from previous EKG on 03/23/2017. Critical Care Time Critical Care Time: Yes Total Critical Care Time: 35 Attestation: Critical care performed: Time is exclusive of separately billable procedures. Time includes: direct patient care, patient reassessment, coordination of patient care, interpretation of data (laboratory data, radiology data, and respiratory data), review of patient's medical records, medical consultation and documentation of patient care. Procedures included in critical care time: Procedures excluded from critical care time: S.B.A.R. - S.B.A.R. Situation: Demographics, MOA Background: Presenting Complaint, Relevant PMH, Meds, & Allergies Assessment: Vital Signs, Course and respsone to treatment, Exam Concerns, Patient/Family Expectation, Pertinant Lab Results, Outstanding Labs Recommendation: Barrier(s) to disposition, Recommendation based on pending studies, treatments, or consults S.B.A.R. Report Given to: Dr. Carr Attestation Statement - Attestation Attestation: I, Gage Telles DO, examined this patient [id number] and my medical decision-making was reviewed with Dr. Irvin Cai, Resident Physician. I agree with the documented findings, disposition and treatment plan as described except to the extent set forth below. Please see my progress notes for details. 1035 81-year-old female presents by EMS for evaluation of altered mentation being found on the floor. Patient was just recently seen and evaluated and treated for urinary tract infection. Family found her lying on her bathroom floor this morning up against a garbage can. Patient denies any loss of consciousness or fall or trauma this time. The fall or issue causing the patient's presentation was not witnessed. Pain is concerned because of the most recent history as well as her medical condition. maintenance worker did evaluate the patient had the bedside and there is some concern for possible outpatient care this time. Patient has clear lungs with his regular had the atraumatic pupils are equal round reactive to light and sharp muscles are intact. Abdomen is tender on palpation there is no specific guarding or rigidity. Extremities appear to be stable. Patient will have screening evaluation a CT of the head and neck and abdomen on chest x-ray EKG and screening laboratory workup looking for infection or muscle deterioration secondary to prolonged downtime. Last time patient was seen last night. He was to be given as needed. See detailed documentation of the physical exam, medical intervention, medical decision- making and disposition resident physician's note. Unknown whether the patient will require hospitalization at this time until further workup and treatment course completion. 1130 Patient has elevated CPK. No acute infectious etiology noted with the patient does have an elevated white blood cell count. Patient is currently on antibiotics at home. There is saying concern for patient being cared for appropriately at home at this time. Patient will be admitted after fluid hydration started port appears to be some aspect of muscle deterioration secondary to prolonged downtime. Patient is otherwise stable. Admission process to be completed this time. 35 minutes of critical care applied and the patient during this treatment course.
[2017-05-11 09:55] LABS: Bilirubin,Urine Negative (Negative); Blood,Urine Moderate (Negative); Clarity,Urine Cloudy (Clear); Color,Urine Yellow (Yellow); Glucose,Urine (UA) Normal (Normal); Ketones,Urine Trace mg/dL (Negative); Leukocyte Esterase,Urine Negative (Negative); Nitrite,Urine Negative (Negative); PH,Urine 5.5 pH Units (5.0-8.0); Protein,Urine 30 mg/dL (Neg-Trace); Specific Gravity,Urine 1.024 (1.010-1.025); Urobilinogen,Urine Normal (Normal)
[2017-05-11 10:06] LABS: Squamous Epithelial Cell,Urine Many per lpf (None-Few); WBC,Urine 0-3 per hpf (0-3)
[2017-05-11 10:07] LABS: RBC,Urine 0-3 per hpf (0-3)
[2017-05-11 11:14] LABS: Basophils % 0.1 %; Hematocrit 35.9 % (35.3-44.9); Hemoglobin 11.4 g/dL (11.5-15.4); Immature Granulocytes % 0.3 % (0-4); Immature Platelets 1.6 % (1.1-6.1); Lymphocytes # 0.9 K/mcL (0.6-4.6); Lymphocytes % 4.5 %; Mean Corpuscular HGB Conc 31.8 g/dL (31.6-35.5); Mean Corpuscular Hemoglobin 28.7 pg (28.0-33.3); Mean Corpuscular Volume 90.4 fL (83.0-100.0); Mean Platelet Volume 8.7 fL (9.4-12.4); Monocytes # 1.2 K/mcL (0.0-1.3); Monocytes % 6.2 %; Neutrophils # 17.4 K/mcL (1.6-8.9); Platelet Count 310 K/mcL (140-400); Red Blood Count 3.97 M/mcL (3.82-4.97); Red Cell Distribution Width 13.8 % (11.5-14.5); Segmented Neutrophils % 88.9 %
[2017-05-11 11:19] LABS: INR 1.1; Prothrombin Time 11.3 Seconds (9.4-12.1)
[2017-05-11 11:21] LABS: Activated Partial Thrombo Time 22.5 Seconds (26.0-36.0)
[2017-05-11 11:26] LABS: BUN/Creatinine Ratio 37 (6-26); Blood Urea Nitrogen 23 mg/dL (7-20); Calcium 9.5 mg/dL (8.6-10.8); Carbon Dioxide 21 mEq/L (19-29); Chloride 109 mEq/L (98-109); Creatine Kinase 4107 Units/L (29-168); Glucose 132 mg/dL (70-99); Osmolality,Calculated 294 (280-300); Potassium 4.1 mEq/L (3.5-4.5); Sodium 139 mEq/L (136-145); eGFR For African Americans > 60 (> 60); eGFR For Non-African Americans > 60 (> 60)
[2017-05-11] MEDS ORDERED: 0.9 % Sodium Chloride 1,000 ML IVC ONE (11:29)
[2017-05-11 11:47] LABS: Thyroid Stimulating Hormone 1.992 mcIU/mL (0.350-4.840)
[2017-05-11] MEDS ORDERED: *HR* OxyCODONE Immed Rel 5 MG TABLET PO PRN (13:13)
[2017-05-11] MEDS ORDERED: Acetaminophen 325 MG TABLET PO PRN (13:13)
[2017-05-11] MEDS ORDERED: Ondansetron 4 MG/2 ML VIAL IVP PRN (13:13)
[2017-05-11] MEDS ORDERED: Naloxone 0.4 MG/ML INJ IVP PRN (13:13)
[2017-05-11] MEDS: 0.9 % Sodium Chloride 1,000 ML IVC SCH (13:55)
--- NOTE | 2017-05-11 13:56 | Internal Med History&Physical ---
Date of Encounter: 05/11/17 Time of Encounter: 12:40 Assessment and Plan (1) Rhabdomyolysis Current visit: Yes Status: Acute 1. Will hydrate with IVF and trend CPK levels. 2. Monitor renal function and consult nephrology if necessary. Qualifiers: Rhabdomyolysis type: traumatic Encounter type: initial encounter Qualified Code(s): T79.6XXA - Traumatic ischemia of muscle, initial encounter (2) Altered mental state Current visit: No Status: Acute 1. According to family, current mental status is much worse than baseline. 2. She has underlying dementia, but her activity and functional capacity is high when she is well. 3. Consult social media designer given her ongoing care needs and likely need for ongoing 12/01 care. Qualifiers: Altered mental status type: disorientation Qualified Code(s): R41.0 - Disorientation, unspecified (3) Hypothermia Current visit: No Status: Acute 1. Likely due to her fall and found down in cold bathroom. 2. Active re-warming initiated. 3. Do not suspect sepsis clinically, but blood cultures and urine cultures ordered. 4. Will start empiric IV antibiotics and will monitor patient clinically. De- escalate antibiotics when clinically stable and if cultures return negative. Qualifiers: Encounter type: initial encounter Qualified Code(s): T68.XXXA - Hypothermia , initial encounter (4) DVT prophylaxis Current visit: No Status: Acute 1. Heparin SQ. Internal Medicine - H&P: HPI Chief complaint: s/p fall; altered mental status Admitted From: Emergency Dept Plans for Post Hospital Care: Transfer Group Home Facility History of present illness: Ms. Humphrey is an 81 year old female who presents to the ER after her family found her down and minimally responsive in the bathroom this morning. She was brought in to the ER and was noted to be hypothermic, altered, confused, and had evidence of bruising to her back and flank. She underwent multiple CT scans of her head, neck, and abdomen/pelvis, with no internal injuries. She was found to have evidence of leukocytosis, hypothermia, and rhabdomyolysis. Because of that, she was admitted to the hospitalist service. Upon my assessment of the patient, there were several family members present at the bedside in the ER. Patient lives with 2 family members, and her sister lives next door. Patient has a history of underlying dementia and has a bedside commode, which she uses with family assistance. However, in the middle the night, she apparently had gotten out of bed and went to the bathroom on her own. She was not found until this morning by her family members, and it is unclear how long she was down in the bathroom. Additionally, the bathroom she uses is poorly heated and oftentimes cold in there. This likely contributed to her hypothermia. She was recently hospitalized with UTI and appears her urine is clean now. Nonetheless, blood and cultures were obtained in the ER and I am ordering empiric antibiotics for the possibility of bacteremia. Certain family members have been trying to get patient to local ECF, but other family members have been noted to resist transfer to ECF as she has significant assets according to some of the family members present. I discussed with the current family members that we will need social media designer to assist and help with discharge planning. It appears the patient likely needs 24/7 care and, if necessary, may need to have her assets relinquished in order to provide the care she needs. The current family members present agree with my recommendation. When I assessed the patient, she is presently confused, disoriented, and provides no history whatsoever. Past Med Surg Social Fam HX - Past Medical History Source: old records reviewed, obtained from family Medical history: arthritis, DVT, hyperlipidemia, hypertension Psychiatric history: other - Past Surgical History Surgical History: knee replacement - Social History Smoking Status: Never smoker Smokeless Tobacco Status: No Alcohol use: none Drug use: none Current living situation: Home, With Family - Family History Father Adopted: No Living Status: Hx Family Cardiac Disorders: Yes (NM) Hx Family Respiratory Disorders: No Hx Family Cancer: No Hx Family GI Disorders: No Hx Family Endocrine Disorder: No Hx Family Neuromuscular Disorders: No Hx Family Neurologic Disorders: No Hx Family HEENT Disorders: No Hx Family Autoimmune Disorders: No Mother Adopted: No Living Status: Hx Family Cardiac Disorders: Yes Hx Family Respiratory Disorders: No Hx Family Cancer: No Hx Family GI Disorders: No Hx Family Endocrine Disorder: Yes (Diabetes) Hx Family Neuromuscular Disorders: No Hx Family Neurologic Disorders: No Hx Family HEENT Disorders: No Hx Family Autoimmune Disorders: No Internal Medicine - H&P: Meds Docusate Sodium [Dok] 100 mg PO DAILY 08/29/16 [History] Ibuprofen [Motrin] 800 mg PO TID PRN 08/29/16 [History] Multivitamin [One Daily Multivitamin] 1 tab PO DAILY 08/29/16 [History] [place]-3/Dha/Epa/Fish Oil [Fish Oil 1,000 mg Softgel] 1,000 mg PO DAILY 08/29/16 [History] Aspirin 81 mg PO DAILY 03/23/17 [History] Cranberry 500 mg PO DAILY 05/01/17 [History] Cefuroxime Axetil [Cefuroxime] 500 mg PO DAILY 05/11/17 [History] 3 Allergy/AdvReac Type Severity Reaction Status Date / Time No Known Allergies Allergy Verified 08/28/16 08:35 ROS unobtainable: due to mental status Review of systems: as per [place] per family; unobtainable by patient - Constitutional Vitals: Temp Pulse Resp BP Pulse Ox 94.7 F L 86 16 109/87 97 05/11/17 12:40 05/11/17 12:19 05/11/17 12:19 05/11/17 12:19 05/11/17 12:19 General appearance: Present: A&O X 0, pleasant, no acute distress. Absent: answers questions appropriately Exam: alert, responsive, pleasantly confused - Head Head exam: Present: atraumatic, normal inspection - Expanded Head Exam Head exam expanded: Absent: abrasion, contusion, general tenderness - Eye Eye exam: Present: EOMI, normal appearance, PERRL. Absent: scleral icterus Pupils: Present: normal accommodation - ENT ENT exam: Present: mucous membranes dry, normal exam - Neck Neck exam general surgery: Present: full ROM, supple. Absent: tenderness - Respiratory Respiratory exam: Present: CTAB. Absent: chest wall tenderness, rales, respiratory distress, rhonchi, wheezes - Cardiovascular Cardiovascular exam: Present: RRR, +S1, +S2. Absent: diastolic murmur, JVD, systolic murmur - GI/Abdominal GI/Abdominal exam: Present: normal bowel sounds, soft. Absent: guarding, hepatomegaly, mass, rebound, splenomegaly, tenderness - Extremities Exam Extremities exam: Present: full ROM, normal capillary refill, warm, radial pulses palpable and symmetrical. Absent: calf tenderness, joint swelling, tenderness - Back Exam Back exam: Absent: CVA tenderness (L), CVA tenderness (R) Additional comments: bruising and indentation on back from fall on to trash can in bathroom - Neurological Exam Neurological exam: Present: alert, altered, no focal deficits - Psychiatric Additional comments: confused - Skin Skin exam: Present: dry, warm Additional comments: bruising along right shoulder and back noted Internal Med - H&P Results - Labs CBC & Chem 7: 05/11/17 11:03 05/11/17 11:03 - EKG Data -: EKG Interpreted by Myself EKG shows normal: sinus rhythm - EKG Data Prior EKG available for review: yes When compared to previous EKG: there is no significant change EKG comments: 05/11/17 14:18 NSR; no acute changes; suspect LVH - Diagnostic Studies Chest x-ray Status: image reviewed by me (negative)
[2017-05-11] MEDS ORDERED: Vancomycin 1,250 MG in D5% in Water 250 ML IVPB SCH (14:00)
[2017-05-11] MEDS: Vancomycin 1,250 MG in D5% in Water 250 ML IVPB SCH (15:28)
[2017-05-11] MEDS ORDERED: Piperacillin/Tazobactam 3.375 GM in D5% in Water 50 ML IVPB SCH (16:00)
[2017-05-11] MEDS: *HR* Heparin 5,000 UNIT/ML VIAL SQ SCH (19:43)
[2017-05-12] MEDS: Piperacillin/Tazobactam 3.375 GM in D5% in Water 50 ML IVPB SCH ×3 (01:24→16:55)
[2017-05-12] MEDS: *HR* Heparin 5,000 UNIT/ML VIAL SQ SCH ×2 (06:15→16:55)
[2017-05-12 06:35] LABS: Alanine Aminotransferase 53 Units/L (0-55); Albumin 2.5 g/dL (3.5-5.0); Albumin/Globulin Ratio 0.7 (1.1-2.2); Alkaline Phosphatase 89 Units/L (38-126); Aspartate Amino Transferase 93 Units/L (5-34); BUN/Creatinine Ratio 25 (6-26); Bilirubin,Total 0.6 mg/dL (0.2-1.2); Blood Urea Nitrogen 16 mg/dL (7-20); Calcium 8.9 mg/dL (8.6-10.8); Carbon Dioxide 22 mEq/L (19-29); Chloride 111 mEq/L (98-109); Creatine Kinase 2781 Units/L (29-168); Globulin 3.5 g/dL (2.4-3.5); Glucose 98 mg/dL (70-99); Magnesium 1.8 mg/dL (1.6-2.6); Osmolality,Calculated 291 (280-300); Potassium 4.3 mEq/L (3.5-4.5); Sodium 140 mEq/L (136-145); eGFR For African Americans > 60 (> 60); eGFR For Non-African Americans > 60 (> 60)
[2017-05-12 06:43] LABS: Basophils % 0.5 %; Eosinophils % 0.5 %; Hematocrit 34.2 % (35.3-44.9); Immature Granulocytes % 0.5 % (0-4); Lymphocytes # 1.5 K/mcL (0.6-4.6); Lymphocytes % 16.7 %; Mean Corpuscular HGB Conc 32.2 g/dL (31.6-35.5); Mean Corpuscular Hemoglobin 28.4 pg (28.0-33.3); Mean Corpuscular Volume 88.4 fL (83.0-100.0); Mean Platelet Volume 9.3 fL (9.4-12.4); Monocytes % 10.9 %; Neutrophils # 6.3 K/mcL (1.6-8.9); Platelet Count 249 K/mcL (140-400); Red Blood Count 3.87 M/mcL (3.82-4.97); Red Cell Distribution Width 14.3 % (11.5-14.5); Segmented Neutrophils % 70.9 %
[2017-05-12] MEDS: Multivit/Ca/Min/Fe/FA 1 TAB TABLET PO SCH (08:12)
[2017-05-12] MEDS: Aspirin 81 MG TAB.CHEW PO SCH (08:12)
[2017-05-12] MEDS ORDERED: OMEGA FISH OIL PO SCH (09:00)
[2017-05-12] MEDS: Nystatin POWDER 30 GM BOTTLE TP SCH ×3 (11:50→20:42)
[2017-05-12] MEDS ORDERED: 0.9 % Sodium Chloride 1,000 ML ONE (12:49)
[2017-05-12] MEDS: 0.9 % Sodium Chloride 1,000 ML IVC SCH (12:53)
--- NOTE | 2017-05-12 14:44 | Electrocardiograph Report ---
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
[2017-05-12] MEDS: Vancomycin 1,250 MG in D5% in Water 250 ML IVPB SCH (15:04)
[2017-05-12] MEDS ORDERED: Aminoglycoside Consult 1 EACH MC ONE (18:04)
--- NOTE | 2017-05-12 18:18 | Internal Med Progress Note ---
Date of Encounter: 05/12/17 Time of Encounter: 10:16 - Assessment and plan (1) Rhabdomyolysis Current Visit: Yes Status: Acute Assessment and plan: Continue IVF and monitor renal function. Qualifiers: Rhabdomyolysis type: traumatic Encounter type: initial encounter Qualified Code(s): T79.6XXA - Traumatic ischemia of muscle, initial encounter (2) Acute encephalopathy Current Visit: No Status: Resolved Assessment and plan: Family yesterday stated she was far worse than her baseline dementia. Will need family to reassess given they are aware of her normal condition. Continue to monitor patient. PT/OT Cotinue antibiotics until preliminary cultures return. Will need placement once stable most likely. (3) Dyslipidemia Current Visit: No Status: Acute (4) Hypothermia Current Visit: No Status: Acute Assessment and plan: Currently lower normal limit. Continue to monitor and empirically treat for sepsis. Qualifiers: Encounter type: initial encounter Qualified Code(s): T68.XXXA - Hypothermia , initial encounter (5) Essential (primary) hypertension Current Visit: No Status: Chronic - Subjective Interval history: No acute events overnight. Patient history limited due to dementia. Denies CP , SOB, n/v, fevers/chills. - Constitutional Vitals: Temp Pulse Resp BP Pulse Ox 97.3 F L 75 16 138/73 100 05/12/17 15:28 05/12/17 15:28 05/12/17 15:28 05/12/17 15:28 05/12/17 15:28 General appearance: Present: A&O X 0, pleasant, no acute distress. Absent: answers questions appropriately Exam: CVS: RRR Lungs: rales at both lung bases abd: Nt/nd ext: no edema Internal Medicine: Result - Labs CBC & Chem 7: 05/12/17 06:12 05/12/17 06:12 Labs: Short CBC 05/12/17 Range/Units 06:12 WBC 8.9 D (4.3-11.1) K/mcL Hgb 11.0 L (11.5-15.4) g/dL Hct 34.2 L (35.3-44.9) % Plt Count 249 (140-400) K/mcL Neutrophils # 6.3 (1.6-8.9) K/mcL BMP 05/12/17 06:12 Sodium 140 Potassium 4.3 Chloride 111 H Carbon Dioxide 22 BUN 16 Creatinine 0.64 Glucose 98 Calcium 8.9 Liver Function 05/12/17 Range/Units 06:12 Total Bilirubin 0.6 (0.2-1.2) mg/dL AST 93 H (5-34) Units/L ALT 53 (0-55) Units/L Alkaline Phosphatase 89 (38-126) Units/L Albumin 2.5 L (3.5-5.0) g/dL - ABG Interpretation ABG results: PT/INR, D-dimer PT 11.3 Seconds (9.4-12.1) 05/11/17 11:03 Consult Discharge Plan - Plan Referrals: Katharine Sarabia MD [Primary Care Provider] -
[2017-05-13] MEDS: Piperacillin/Tazobactam 3.375 GM in D5% in Water 50 ML IVPB SCH ×3 (00:20→16:34)
[2017-05-13] MEDS: *HR* Heparin 5,000 UNIT/ML VIAL SQ SCH ×2 (05:37→16:33)
[2017-05-13 05:48] LABS: Basophils # 0.1 K/mcL (0.0-0.2); Basophils % 0.9 %; Eosinophils # 0.1 K/mcL (0.0-0.6); Hematocrit 31.6 % (35.3-44.9); Immature Granulocytes % 0.3 % (0-4); Lymphocytes # 1.6 K/mcL (0.6-4.6); Lymphocytes % 23.4 %; Mean Corpuscular HGB Conc 31.6 g/dL (31.6-35.5); Mean Corpuscular Hemoglobin 28.2 pg (28.0-33.3); Mean Corpuscular Volume 89.3 fL (83.0-100.0); Mean Platelet Volume 9.4 fL (9.4-12.4); Monocytes # 0.8 K/mcL (0.0-1.3); Monocytes % 11.5 %; Neutrophils # 4.2 K/mcL (1.6-8.9); Platelet Count 260 K/mcL (140-400); Red Blood Count 3.54 M/mcL (3.82-4.97); Red Cell Distribution Width 14.3 % (11.5-14.5); Segmented Neutrophils % 62.9 %
[2017-05-13 06:08] LABS: BUN/Creatinine Ratio 26 (6-26); Blood Urea Nitrogen 18 mg/dL (7-20); Calcium 8.8 mg/dL (8.6-10.8); Carbon Dioxide 22 mEq/L (19-29); Chloride 111 mEq/L (98-109); Glucose 98 mg/dL (70-99); Osmolality,Calculated 288 (280-300); Potassium 3.9 mEq/L (3.5-4.5); Sodium 138 mEq/L (136-145); eGFR For African Americans > 60 (> 60); eGFR For Non-African Americans > 60 (> 60)
[2017-05-13] MEDS: Nystatin POWDER 30 GM BOTTLE TP SCH ×3 (08:57→21:56)
[2017-05-13] MEDS: Multivit/Ca/Min/Fe/FA 1 TAB TABLET PO SCH (08:57)
[2017-05-13] MEDS: Aspirin 81 MG TAB.CHEW PO SCH (08:57)
--- NOTE | 2017-05-13 17:27 | Internal Med Progress Note ---
Date of Encounter: 05/13/17 Time of Encounter: 17:25 - Assessment and plan (1) Acute encephalopathy Current Visit: No Status: Resolved Assessment and plan: Patient at her baseline. No signs of infection and blood/urine cultures have been negative for >48 hours, afebrile, and no leukocytosis. Will discontinue antibiotics as infection not likely cause of AMS. From medical standpoint, she is okay for discharge tomorrow if she remains stable. Placement to SNF pending. Patient does not want to go but unfortunately she is not safe to be discharged home. (2) Rhabdomyolysis Current Visit: Yes Status: Resolved Assessment and plan: Resolved Qualifiers: Rhabdomyolysis type: traumatic Encounter type: initial encounter Qualified Code(s): T79.6XXA - Traumatic ischemia of muscle, initial encounter (3) Dyslipidemia Current Visit: No Status: Acute (4) Hypothermia Current Visit: No Status: Acute Assessment and plan: Currently lower normal limit. Not related to sepsis. Qualifiers: Encounter type: initial encounter Qualified Code(s): T68.XXXA - Hypothermia , initial encounter (5) Essential (primary) hypertension Current Visit: No Status: Chronic (6) Weakness Current Visit: No Status: Chronic Assessment and plan: PT/OT recommends SNF. Patient would like to be discharged home. It is not safe for patient to go home as she does need extensive therapy and assistance on a daily basis. (7) Falls Current Visit: No Status: Acute Qualifiers: Encounter type: initial encounter Qualified Code(s): W19.XXXA - Unspecified fall, initial encounter - Subjective Interval history: No acute events overnight. Denies CP, SOB, n/v, fevers/chills. Patient has occasional tangental speech but is AAOx3. - Constitutional Vitals: Temp Pulse Resp BP Pulse Ox 98.2 F 79 16 121/71 97 05/13/17 17:02 05/13/17 17:02 05/13/17 17:02 05/13/17 17:02 05/13/17 17:02 General appearance: Present: A&O X 3 (improved mentation since yesterday), pleasant, no acute distress. Absent: answers questions appropriately Exam: CVS: RRR Lungs: rales at both lung bases abd: Nt/nd ext: no edema Internal Medicine: Result - Labs CBC & Chem 7: 05/13/17 05:10 05/13/17 05:10 Labs: Short CBC 05/13/17 Range/Units 05:10 WBC 6.7 (4.3-11.1) K/mcL Hgb 10.0 L (11.5-15.4) g/dL Hct 31.6 L (35.3-44.9) % Plt Count 260 (140-400) K/mcL Neutrophils # 4.2 (1.6-8.9) K/mcL BMP 05/13/17 05:10 Sodium 138 Potassium 3.9 Chloride 111 H Carbon Dioxide 22 BUN 18 Creatinine 0.68 Glucose 98 Calcium 8.8 - ABG Interpretation ABG results: PT/INR, D-dimer PT 11.3 Seconds (9.4-12.1) 05/11/17 11:03 Consult Discharge Plan - Plan Referrals: Katharine Sarabia MD [Primary Care Provider] -
[2017-05-14] MEDS: Piperacillin/Tazobactam 3.375 GM in D5% in Water 50 ML IVPB SCH (00:21)
[2017-05-14 04:52] LABS: Basophils # 0.1 K/mcL (0.0-0.2); Basophils % 0.9 %; Eosinophils # 0.1 K/mcL (0.0-0.6); Eosinophils % 2.1 %; Hematocrit 31.5 % (35.3-44.9); Hemoglobin 10.1 g/dL (11.5-15.4); Immature Granulocytes % 0.3 % (0-4); Lymphocytes # 1.6 K/mcL (0.6-4.6); Lymphocytes % 27.1 %; Mean Corpuscular HGB Conc 32.1 g/dL (31.6-35.5); Mean Corpuscular Hemoglobin 28.5 pg (28.0-33.3); Mean Platelet Volume 8.8 fL (9.4-12.4); Monocytes # 0.6 K/mcL (0.0-1.3); Monocytes % 10.8 %; Neutrophils # 3.4 K/mcL (1.6-8.9); Platelet Count 275 K/mcL (140-400); Red Blood Count 3.54 M/mcL (3.82-4.97); Red Cell Distribution Width 14.3 % (11.5-14.5); Segmented Neutrophils % 58.8 %
[2017-05-14] MEDS: *HR* Heparin 5,000 UNIT/ML VIAL SQ SCH ×2 (05:06→17:31)
[2017-05-14 05:07] LABS: BUN/Creatinine Ratio 25 (6-26); Blood Urea Nitrogen 17 mg/dL (7-20); Calcium 9.1 mg/dL (8.6-10.8); Carbon Dioxide 24 mEq/L (19-29); Chloride 109 mEq/L (98-109); Glucose 98 mg/dL (70-99); Osmolality,Calculated 286 (280-300); Sodium 137 mEq/L (136-145); eGFR For African Americans > 60 (> 60); eGFR For Non-African Americans > 60 (> 60)
[2017-05-14] MEDS: Aspirin 81 MG TAB.CHEW PO SCH (08:00)
[2017-05-14] MEDS: Multivit/Ca/Min/Fe/FA 1 TAB TABLET PO SCH (08:00)
[2017-05-14] MEDS: cephALEXin 500 MG CAPSULE PO SCH ×3 (08:06→19:36)
[2017-05-14] MEDS: Nystatin POWDER 30 GM BOTTLE TP SCH ×3 (08:06→19:36)
--- NOTE | 2017-05-14 21:23 | Internal Med Progress Note ---
Date of Encounter: 05/14/17 Time of Encounter: 15:00 - Assessment and plan (1) Acute encephalopathy Current Visit: No Status: Resolved Assessment and plan: Patient at her baseline. No signs of infection and blood/urine cultures have been negative for >48 hours, afebrile, and no leukocytosis. Possibly from UTI as she did have recent Proteus UTI 05/05 (resistant to ampicillin, Levaquin, Bactrim). Currently on Zosyn, will deescalate therapy to 1st gen cephalosporin Keflex. From medical standpoint, she is okay for discharge tomorrow if she remains stable. Patient does not want to go but unfortunately she is not safe to be discharged home. Placement to SNF pending. (2) Rhabdomyolysis Current Visit: Yes Status: Resolved Assessment and plan: Resolved Qualifiers: Rhabdomyolysis type: traumatic Encounter type: initial encounter Qualified Code(s): T79.6XXA - Traumatic ischemia of muscle, initial encounter (3) Dyslipidemia Current Visit: No Status: Acute (4) Hypothermia Current Visit: No Status: Acute Assessment and plan: Currently lower normal limit. Not related to sepsis. Qualifiers: Encounter type: initial encounter Qualified Code(s): T68.XXXA - Hypothermia , initial encounter (5) Weakness Current Visit: No Status: Chronic Assessment and plan: PT/OT recommends SNF. Patient would like to be discharged home. It is not safe for patient to go home as she does need extensive therapy and assistance on a daily basis. (6) Essential (primary) hypertension Current Visit: No Status: Chronic (7) Falls Current Visit: No Status: Acute Qualifiers: Encounter type: initial encounter Qualified Code(s): W19.XXXA - Unspecified fall, initial encounter - Subjective Interval history: No acute events overnight. Denies CP, SOB, n/v, fevers/chills. - Constitutional Vitals: Temp Pulse Resp BP Pulse Ox 98.1 F 81 17 120/66 94 05/14/17 18:43 05/14/17 18:43 05/14/17 18:43 05/14/17 18:43 05/14/17 18:43 General appearance: Present: A&O X 2, pleasant, no acute distress. Absent: answers questions appropriately - Head Head exam: Present: atraumatic, normocephalic - Respiratory Respiratory exam: Present: CTAB, rales. Absent: accessory muscle use, decreased breath sounds, rhonchi, wheezes - Cardiovascular Cardiovascular exam: Present: RRR, +S1, +S2. Absent: diastolic murmur, gallop, rubs, systolic murmur - Extremities Exam Extremities exam: Present: warm, radial pulses palpable and symmetrical. Absent : calf tenderness, cyanotic, pedal edema Internal Medicine: Result - Labs CBC & Chem 7: 05/14/17 04:45 05/14/17 04:45 Labs: Short CBC 05/14/17 Range/Units 04:45 WBC 5.8 (4.3-11.1) K/mcL Hgb 10.1 L (11.5-15.4) g/dL Hct 31.5 L (35.3-44.9) % Plt Count 275 (140-400) K/mcL Neutrophils # 3.4 (1.6-8.9) K/mcL BMP 05/14/17 04:45 Sodium 137 Potassium 4.0 Chloride 109 Carbon Dioxide 24 BUN 17 Creatinine 0.69 Glucose 98 Calcium 9.1 - ABG Interpretation ABG results: PT/INR, D-dimer PT 11.3 Seconds (9.4-12.1) 05/11/17 11:03 Consult Discharge Plan - Plan Referrals: Katharine Sarabia MD [Primary Care Provider] - (patient will follow up with [facility] pcp)
[2017-05-15 04:40] LABS: Basophils % 0.7 %; Eosinophils # 0.2 K/mcL (0.0-0.6); Eosinophils % 3.1 %; Hematocrit 31.5 % (35.3-44.9); Hemoglobin 9.8 g/dL (11.5-15.4); Immature Granulocytes % 0.7 % (0-4); Lymphocytes # 1.9 K/mcL (0.6-4.6); Lymphocytes % 30.9 %; Mean Corpuscular HGB Conc 31.1 g/dL (31.6-35.5); Mean Corpuscular Hemoglobin 27.8 pg (28.0-33.3); Mean Corpuscular Volume 89.2 fL (83.0-100.0); Mean Platelet Volume 8.9 fL (9.4-12.4); Monocytes # 0.6 K/mcL (0.0-1.3); Monocytes % 9.4 %; Neutrophils # 3.4 K/mcL (1.6-8.9); Platelet Count 287 K/mcL (140-400); Red Blood Count 3.53 M/mcL (3.82-4.97); Red Cell Distribution Width 14.4 % (11.5-14.5); Segmented Neutrophils % 55.2 %
[2017-05-15 04:52] LABS: BUN/Creatinine Ratio 22 (6-26); Blood Urea Nitrogen 15 mg/dL (7-20); Calcium 9.2 mg/dL (8.6-10.8); Carbon Dioxide 22 mEq/L (19-29); Chloride 109 mEq/L (98-109); Glucose 90 mg/dL (70-99); Osmolality,Calculated 282 (280-300); Sodium 136 mEq/L (136-145); eGFR For African Americans > 60 (> 60); eGFR For Non-African Americans > 60 (> 60)
[2017-05-15 05:04] LABS: Potassium 4.3 mEq/L (3.5-4.5)
[2017-05-15] MEDS: *HR* Heparin 5,000 UNIT/ML VIAL SQ SCH ×2 (05:36→18:20)
[2017-05-15] MEDS: Aspirin 81 MG TAB.CHEW PO SCH (09:21)
[2017-05-15] MEDS: Multivit/Ca/Min/Fe/FA 1 TAB TABLET PO SCH (09:21)
[2017-05-15] MEDS: cephALEXin 500 MG CAPSULE PO SCH ×3 (09:21→21:37)
[2017-05-15] MEDS: Nystatin POWDER 30 GM BOTTLE TP SCH ×3 (09:22→21:37)
--- NOTE | 2017-05-15 17:50 | Internal Med Progress Note ---
Date of Encounter: 05/15/17 Time of Encounter: 17:49 - Assessment and plan (1) Acute encephalopathy Current Visit: No Status: Resolved Assessment and plan: Patient at her baseline. No signs of infection and blood/urine cultures have been negative for >48 hours, afebrile, and no leukocytosis. Possibly from UTI as she did have recent Proteus UTI 05/05 (resistant to ampicillin, Levaquin, Bactrim). Currently on Zosyn, will deescalate therapy to 1st gen cephalosporin Keflex. From medical standpoint, she is okay for discharge tomorrow if she remains stable. Patient does not want to go but unfortunately she is not safe to be discharged home. Placement to SNF pending. (2) Weakness Current Visit: No Status: Chronic Assessment and plan: PT/OT recommends SNF. Patient would like to be discharged home. It is not safe for patient to go home as she does need extensive therapy and assistance on a daily basis. (3) Rhabdomyolysis Current Visit: Yes Status: Resolved Assessment and plan: Resolved Qualifiers: Rhabdomyolysis type: traumatic Encounter type: initial encounter Qualified Code(s): T79.6XXA - Traumatic ischemia of muscle, initial encounter (4) Dyslipidemia Current Visit: No Status: Acute (5) Hypothermia Current Visit: No Status: Acute Assessment and plan: Currently lower normal limit. Not related to sepsis. Qualifiers: Encounter type: initial encounter Qualified Code(s): T68.XXXA - Hypothermia , initial encounter (6) Essential (primary) hypertension Current Visit: No Status: Chronic (7) Falls Current Visit: No Status: Acute Qualifiers: Encounter type: initial encounter Qualified Code(s): W19.XXXA - Unspecified fall, initial encounter - Subjective Interval history: No acute events overnight. Denies CP, SOB, n/v, fevers/chills. - Constitutional Vitals: Temp Pulse Resp BP Pulse Ox 97.2 F L 73 18 130/80 94 05/15/17 15:22 05/15/17 15:22 05/15/17 15:22 05/15/17 15:22 05/15/17 15:22 General appearance: Present: A&O X 2, pleasant, no acute distress. Absent: answers questions appropriately Exam: - Head Head exam: Present: atraumatic, normocephalic - Respiratory Respiratory exam: Present: CTAB, rales. Absent: accessory muscle use, decreased breath sounds, rhonchi, wheezes - Cardiovascular Cardiovascular exam: Present: RRR, +S1, +S2. Absent: diastolic murmur, gallop, rubs, systolic murmur - Extremities Exam Extremities exam: Present: warm, radial pulses palpable and symmetrical. Absent : calf tenderness, cyanotic, pedal edema Internal Medicine: Result - Labs CBC & Chem 7: 05/15/17 04:22 05/15/17 04:22 Labs: Short CBC 05/15/17 Range/Units 04:22 WBC 6.2 (4.3-11.1) K/mcL Hgb 9.8 L (11.5-15.4) g/dL Hct 31.5 L (35.3-44.9) % Plt Count 287 (140-400) K/mcL Neutrophils # 3.4 (1.6-8.9) K/mcL BMP 05/15/17 04:22 Sodium 136 Potassium 4.3 Chloride 109 Carbon Dioxide 22 BUN 15 Creatinine 0.67 Glucose 90 Calcium 9.2 - ABG Interpretation ABG results: PT/INR, D-dimer PT 11.3 Seconds (9.4-12.1) 05/11/17 11:03 Consult Discharge Plan - Plan Referrals: Katharine Sarabia MD [Primary Care Provider] - (patient will follow up with [facility] pcp)
[2017-05-16 05:14] LABS: Basophils % 0.7 %; Eosinophils # 0.2 K/mcL (0.0-0.6); Eosinophils % 3.7 %; Hematocrit 31.5 % (35.3-44.9); Immature Granulocytes % 0.7 % (0-4); Lymphocytes # 1.8 K/mcL (0.6-4.6); Lymphocytes % 30.7 %; Mean Corpuscular HGB Conc 31.7 g/dL (31.6-35.5); Mean Corpuscular Hemoglobin 28.2 pg (28.0-33.3); Mean Corpuscular Volume 88.7 fL (83.0-100.0); Mean Platelet Volume 8.8 fL (9.4-12.4); Monocytes # 0.6 K/mcL (0.0-1.3); Monocytes % 9.8 %; Neutrophils # 3.3 K/mcL (1.6-8.9); Platelet Count 290 K/mcL (140-400); Red Blood Count 3.55 M/mcL (3.82-4.97); Red Cell Distribution Width 14.2 % (11.5-14.5); Segmented Neutrophils % 54.4 %
[2017-05-16 05:23] LABS: BUN/Creatinine Ratio 25 (6-26); Blood Urea Nitrogen 17 mg/dL (7-20); Calcium 8.8 mg/dL (8.6-10.8); Carbon Dioxide 23 mEq/L (19-29); Chloride 108 mEq/L (98-109); Glucose 90 mg/dL (70-99); Osmolality,Calculated 285 (280-300); Sodium 137 mEq/L (136-145); eGFR For African Americans > 60 (> 60); eGFR For Non-African Americans > 60 (> 60)
[2017-05-16] MEDS: *HR* Heparin 5,000 UNIT/ML VIAL SQ SCH ×2 (06:13→19:02)
[2017-05-16] MEDS: Aspirin 81 MG TAB.CHEW PO SCH (11:55)
[2017-05-16] MEDS: Nystatin POWDER 30 GM BOTTLE TP SCH ×3 (11:55→20:38)
[2017-05-16] MEDS: cephALEXin 500 MG CAPSULE PO SCH ×3 (11:55→20:38)
[2017-05-16] MEDS: Multivit/Ca/Min/Fe/FA 1 TAB TABLET PO SCH (11:55)
--- NOTE | 2017-05-16 15:54 | Internal Med Progress Note ---
Date of Encounter: 05/16/17 Time of Encounter: 15:52 - Assessment and plan (1) Acute encephalopathy Current Visit: No Status: Resolved Assessment and plan: Patient is back at her baseline. No signs of infection and blood/urine cultures have been negative for >48 hours, afebrile, and no leukocytosis. Possibly from UTI as she did have recent Proteus UTI 05/05 (resistant to ampicillin, Levaquin, Bactrim). She was being treated with Zosyn. On 05/15 she was Deescalated to Keflex based on prior sensitivities. From medical standpoint, she is okay for discharge. Placement to SNF pending. (2) Weakness Current Visit: No Status: Chronic Assessment and plan: PT/OT recommends SNF. It is not safe for patient to go home as she does need extensive therapy and assistance on a daily basis. (3) Rhabdomyolysis Current Visit: Yes Status: Resolved Assessment and plan: Resolved Qualifiers: Rhabdomyolysis type: traumatic Encounter type: initial encounter Qualified Code(s): T79.6XXA - Traumatic ischemia of muscle, initial encounter (4) Hypothermia Current Visit: No Status: Acute Assessment and plan: Currently lower normal limit. Not related to sepsis. Qualifiers: Encounter type: initial encounter Qualified Code(s): T68.XXXA - Hypothermia , initial encounter (5) Dyslipidemia Current Visit: No Status: Acute (6) Falls Current Visit: No Status: Acute Qualifiers: Encounter type: initial encounter Qualified Code(s): W19.XXXA - Unspecified fall, initial encounter (7) Essential (primary) hypertension Current Visit: No Status: Chronic - Subjective Interval history: No acute events overnight. Denies CP, SOB, n/v, fevers/chills. - Constitutional Vitals: Temp Pulse Resp BP Pulse Ox 97.5 F L 73 14 125/77 96 05/16/17 10:47 05/16/17 10:47 05/16/17 10:47 05/16/17 10:47 05/16/17 10:47 General appearance: Present: A&O X 2, pleasant, no acute distress. Absent: answers questions appropriately Exam: - Head Head exam: Present: atraumatic, normocephalic - Respiratory Respiratory exam: Present: CTAB, rales. Absent: accessory muscle use, decreased breath sounds, rhonchi, wheezes - Cardiovascular Cardiovascular exam: Present: RRR, +S1, +S2. Absent: diastolic murmur, gallop, rubs, systolic murmur - Extremities Exam Extremities exam: Present: warm, radial pulses palpable and symmetrical. Absent : calf tenderness, cyanotic, pedal edema Internal Medicine: Result - Labs CBC & Chem 7: 05/16/17 04:51 05/16/17 04:51 Labs: Short CBC 05/16/17 Range/Units 04:51 WBC 6.0 (4.3-11.1) K/mcL Hgb 10.0 L (11.5-15.4) g/dL Hct 31.5 L (35.3-44.9) % Plt Count 290 (140-400) K/mcL Neutrophils # 3.3 (1.6-8.9) K/mcL BMP 05/16/17 04:51 Sodium 137 Potassium 4.0 Chloride 108 Carbon Dioxide 23 BUN 17 Creatinine 0.68 Glucose 90 Calcium 8.8 - ABG Interpretation ABG results: PT/INR, D-dimer PT 11.3 Seconds (9.4-12.1) 05/11/17 11:03 Consult Discharge Plan - Plan Referrals: Katharine Sarabia MD [Primary Care Provider] - (patient will follow up with [facility] pcp)
[2017-05-17] MEDS: *HR* Heparin 5,000 UNIT/ML VIAL SQ SCH ×2 (05:56→17:16)
[2017-05-17 06:49] LABS: Basophils % 0.6 %; Eosinophils # 0.2 K/mcL (0.0-0.6); Eosinophils % 3.3 %; Hematocrit 33.4 % (35.3-44.9); Hemoglobin 10.6 g/dL (11.5-15.4); Immature Granulocytes % 0.6 % (0-4); Lymphocytes # 1.7 K/mcL (0.6-4.6); Lymphocytes % 26.5 %; Mean Corpuscular HGB Conc 31.7 g/dL (31.6-35.5); Mean Corpuscular Hemoglobin 28.1 pg (28.0-33.3); Mean Corpuscular Volume 88.6 fL (83.0-100.0); Mean Platelet Volume 8.7 fL (9.4-12.4); Monocytes # 0.6 K/mcL (0.0-1.3); Monocytes % 9.7 %; Neutrophils # 3.7 K/mcL (1.6-8.9); Platelet Count 318 K/mcL (140-400); Red Blood Count 3.77 M/mcL (3.82-4.97); Red Cell Distribution Width 14.3 % (11.5-14.5); Segmented Neutrophils % 59.3 %
[2017-05-17 07:02] LABS: BUN/Creatinine Ratio 26 (6-26); Blood Urea Nitrogen 19 mg/dL (7-20); Calcium 8.9 mg/dL (8.6-10.8); Carbon Dioxide 23 mEq/L (19-29); Chloride 108 mEq/L (98-109); Creatine Kinase 233 Units/L (29-168); Glucose 89 mg/dL (70-99); Osmolality,Calculated 284 (280-300); Sodium 136 mEq/L (136-145); eGFR For African Americans > 60 (> 60); eGFR For Non-African Americans > 60 (> 60)
[2017-05-17] MEDS: cephALEXin 500 MG CAPSULE PO SCH ×3 (09:45→21:20)
[2017-05-17] MEDS: Aspirin 81 MG TAB.CHEW PO SCH (09:45)
[2017-05-17] MEDS: Multivit/Ca/Min/Fe/FA 1 TAB TABLET PO SCH (09:45)
[2017-05-17] MEDS: Nystatin POWDER 30 GM BOTTLE TP SCH ×3 (09:47→21:20)
--- NOTE | 2017-05-17 18:04 | Internal Med Progress Note ---
Date of Encounter: 05/17/17 Time of Encounter: 18:04 - Assessment and plan (1) Acute encephalopathy Current Visit: No Status: Resolved Assessment and plan: Patient is back at her baseline. No signs of infection and blood/urine cultures have been negative for >48 hours, afebrile, and no leukocytosis. Possibly from UTI as she did have recent Proteus UTI 05/05 (resistant to ampicillin, Levaquin, Bactrim). She was being treated with Zosyn. On 05/15 she was Deescalated to Keflex based on prior sensitivities. From medical standpoint, she is okay for discharge. Placement to SNF pending. (2) Weakness Current Visit: No Status: Chronic Assessment and plan: PT/OT recommends SNF. It is not safe for patient to go home as she does need extensive therapy and assistance on a daily basis. (3) Rhabdomyolysis Current Visit: Yes Status: Resolved Assessment and plan: Resolved Qualifiers: Rhabdomyolysis type: traumatic Encounter type: initial encounter Qualified Code(s): T79.6XXA - Traumatic ischemia of muscle, initial encounter (4) Hypothermia Current Visit: No Status: Acute Assessment and plan: Currently lower normal limit. Not related to sepsis. Qualifiers: Encounter type: initial encounter Qualified Code(s): T68.XXXA - Hypothermia , initial encounter (5) Dyslipidemia Current Visit: No Status: Acute (6) Falls Current Visit: No Status: Acute Qualifiers: Encounter type: initial encounter Qualified Code(s): W19.XXXA - Unspecified fall, initial encounter (7) Essential (primary) hypertension Current Visit: No Status: Chronic - Subjective Interval history: No acute events overnight. Denies CP, SOB, n/v, fevers/chills. - Constitutional Vitals: Temp Pulse Resp BP Pulse Ox 97.9 F 77 17 111/73 98 05/17/17 15:26 05/17/17 15:26 05/17/17 15:26 05/17/17 15:26 05/17/17 15:26 General appearance: Present: A&O X 2, pleasant, no acute distress. Absent: answers questions appropriately Exam: CVS: RRR Lungs: CTAB Abd: NT/ND Ext: trace bipedal edema Internal Medicine: Result - Labs CBC & Chem 7: 05/17/17 06:25 05/17/17 06:25 Labs: Short CBC 05/17/17 Range/Units 06:25 WBC 6.3 (4.3-11.1) K/mcL Hgb 10.6 L (11.5-15.4) g/dL Hct 33.4 L (35.3-44.9) % Plt Count 318 (140-400) K/mcL Neutrophils # 3.7 (1.6-8.9) K/mcL BMP 05/17/17 06:25 Sodium 136 Potassium 4.0 Chloride 108 Carbon Dioxide 23 BUN 19 Creatinine 0.72 Glucose 89 Calcium 8.9 - ABG Interpretation ABG results: PT/INR, D-dimer PT 11.3 Seconds (9.4-12.1) 05/11/17 11:03 Consult Discharge Plan - Plan Referrals: Katharine Sarabia MD [Primary Care Provider] - (patient will follow up with [facility] pcp)
[2017-05-18] MEDS: *HR* Heparin 5,000 UNIT/ML VIAL SQ SCH (05:48)
[2017-05-18] MEDS: Multivit/Ca/Min/Fe/FA 1 TAB TABLET PO SCH (07:37)
[2017-05-18] MEDS: Nystatin POWDER 30 GM BOTTLE TP SCH ×2 (07:37→14:35)
[2017-05-18] MEDS: Aspirin 81 MG TAB.CHEW PO SCH (07:37)
[2017-05-18] MEDS: cephALEXin 500 MG CAPSULE PO SCH ×2 (07:37→14:35)
--- NOTE | 2017-05-18 09:34 | Discharge Summary ---
Date of Encounter: 05/18/17 Time of Encounter: 09:29 - Discharge Diagnosis (1) Acute encephalopathy Priority: Primary Status: Resolved (2) Rhabdomyolysis Priority: Secondary Status: Resolved Qualifiers: Rhabdomyolysis type: traumatic Encounter type: initial encounter Qualified Code(s): T79.6XXA - Traumatic ischemia of muscle, initial encounter (3) Weakness Priority: Secondary Status: Chronic (4) Hypothermia Priority: Secondary Status: Acute Qualifiers: Encounter type: initial encounter Qualified Code(s): T68.XXXA - Hypothermia , initial encounter (5) Dyslipidemia Priority: Secondary Status: Acute (6) Falls Priority: Secondary Status: Acute Qualifiers: Encounter type: initial encounter Qualified Code(s): W19.XXXA - Unspecified fall, initial encounter (7) Essential (primary) hypertension Priority: Secondary Status: Chronic - Discharge Medications Prescriptions: cephALEXin [Keflex] 500 mg PO TID #9 capsule Home Medications: Docusate Sodium [Dok] 100 mg PO DAILY 08/29/16 [History] Ibuprofen [Motrin] 800 mg PO TID PRN 08/29/16 [History] Multivitamin [One Daily Multivitamin] 1 tab PO DAILY 08/29/16 [History] [place]-3/Dha/Epa/Fish Oil [Fish Oil 1,000 mg Softgel] 1,000 mg PO DAILY 08/29/16 [History] Aspirin 81 mg PO DAILY 03/23/17 [History] Cranberry 500 mg PO DAILY 05/01/17 [History] cephALEXin [Keflex] 500 mg PO TID #9 capsule 05/18/17 [Rx] Allergies/Adverse Reactions: 3 Allergy/AdvReac Type Severity Reaction Status Date / Time No Known Allergies Allergy Verified 08/28/16 08:35 Procedures/tests Complete & Pending: Procedures Performed prior 72 hours Category Date Time Status EKG [ECG 12 lead ECG] [ECG] Stat Y 05/18/17 07:17 Stop Req Date of admission: 05/11/17 13:13 Primary care physician: Katharine Sarabia Consults: 05/11/17 16:42 Consult to Pastoral Services [CONS] Routine Comment: 05/11/17 17:03 Consult to Pastoral Services [CONS] Routine Comment: 05/12/17 07:20 Consult to Occupational Therapy [CONS] Routine Comment: Evaluate, develop and implement POC Reason for Consult: eval for e[facility] Consult to Physical Therapy [CONS] Routine Comment: Evaluate, develop and implement POC Reason for Consult: eval for e[facility] Discharging clinician: Gretel Goldsmith Anticipated date of discharge: 05/18/17 - Patient Status Disposition: Transfer SNF Condition: Fair Functional capacity at discharge: uses cane/walker Overall status at discharge: patient is progressing back to baseline - Discharge Instructions Instructions: Cephalexin (By mouth) Follow Up With: Katharine Sarabia MD [Primary Care Provider] - (patient will follow up with [facility] pcp) - Diet and Activity Activity: as per physical therapy Diet: advance to your usual diet Hospital course: Ms. Humphrey is a 81 year old female presented to the emergency department after family found her down and minimally responsive in the bathroom on the day of admission. He was brought to the ER and was hypothermic, altered mental status , confused, and had evidence of bruising on her back and flank. She underwent multiple CT scans of her head, neck, and abdominal abdomen and pelvis with no internal injuries. She was found to have evidence of leukocytosis, hypothermia , rhabdomyolysis. She was admitted to the hospitalist service. He has an underlying dementia, she lives with 2 family members and her sister lives next door. She is with family's assistance. She was recently hospitalized with UTI but her urine did not show any signs of UTI on admission. Cultures and urine cultures were obtained she was started on empiric antibiotic therapy for possible bacteremia, therapy was discontinued to previous positive cultures of Proteus. She was qualified for ECF and she was approved and she was discharged there in stable condition. She was discharged home with Keflex to take for an additional 3 more days. Time spent discussing smoking cessation with patient: 3 to 10 minutes - Time Spent with Patient Total time spent providing and/or coordinating discharge services: - Constitutional Vitals: Temp Pulse Resp BP Pulse Ox 98.3 F 72 16 122/78 96 05/18/17 07:00 05/18/17 07:00 05/18/17 07:00 05/18/17 07:00 05/18/17 07:00 General appearance: Present: A&O X 2, pleasant, no acute distress. Absent: answers questions appropriately Exam: - Head Head exam: Present: atraumatic, normocephalic - Respiratory Respiratory exam: Present: CTAB, rales. Absent: accessory muscle use, decreased breath sounds, rhonchi, wheezes - Cardiovascular Cardiovascular exam: Present: RRR, +S1, +S2. Absent: diastolic murmur, gallop, rubs, systolic murmur - Extremities Exam Extremities exam: Present: warm, radial pulses palpable and symmetrical. Absent : calf tenderness, cyanotic, pedal edema
[2017-05-18 11:37] VITALS: BP 103/67
--- NOTE | 2017-05-18 15:05 | Physician Discharge Referral ---
ExtendedCare Referral Info Transfer To: [facility] Institutional Level of Care: Skilled - Diagnosis (1) Acute encephalopathy Priority: Primary Status: Resolved (2) Rhabdomyolysis Priority: Secondary Status: Resolved (3) Weakness Priority: Secondary Status: Chronic (4) Hypothermia Priority: Secondary Status: Acute (5) Dyslipidemia Priority: Secondary Status: Acute (6) Falls Priority: Secondary Status: Acute (7) Essential (primary) hypertension Priority: Secondary Status: Chronic Prognosis: Fair Aware of Diagnosis: Patient, Family - Transfer Medications Prescriptions: cephALEXin [Keflex] 500 mg PO TID #9 capsule Home Medications: Docusate Sodium [Dok] 100 mg PO DAILY 08/29/16 [History] Ibuprofen [Motrin] 800 mg PO TID PRN 08/29/16 [History] Multivitamin [One Daily Multivitamin] 1 tab PO DAILY 08/29/16 [History] [place]-3/Dha/Epa/Fish Oil [Fish Oil 1,000 mg Softgel] 1,000 mg PO DAILY 08/29/16 [History] Aspirin 81 mg PO DAILY 03/23/17 [History] Cranberry 500 mg PO DAILY 05/01/17 [History] cephALEXin [Keflex] 500 mg PO TID #9 capsule 05/18/17 [Rx] Allergies/Adverse Reactions: 3 Allergy/AdvReac Type Severity Reaction Status Date / Time No Known Allergies Allergy Verified 08/28/16 08:35 - Respiratory Orders Smoking Cessation: Smoking cessation has been advised. For more information, call the [place] Tobacco Quit Line at 8-225-UVMW-NOW. - Ancillary Orders May use pressure relief devices daily prn - Advance Directives Code Status: Full Code - Rehabiliation Orders Rehab Potential: Fair Rehab Orders: ROM Exercises, Evaluation for Physical Therapy, Evaluation for Occupational Therapy - Treatments Skin tear care topically daily PRN per policy - Diet Orders No Added Salt (RIKI) CERTIFICATION: I certify that the transfer of the above named patient to an Extended Care Facility is necessary for the continuing treatment of the diagnosis listed. The above information is true and accurate reflection of patient's current condition. Confidential - Redisclosure prohibited without a patient's written consent.
== END 2017-05-18 18:05 | DRG 557 ==
LOC: EMEROO 09:35 → 2ANU 09:35
PROVIDERS: ADMIT Pediatrics; ATTEND Family Medicine

== ENCOUNTER 2019-01-01 12:57 | Observation (INO) ==
--- NOTE | 2019-01-01 13:46 | Emergency Department Note ---
Disposition Clinical Impression: Laceration, Hypokalemia Dementia Qualifiers: Dementia type: unspecified type Dementia behavioral disturbance: without behavioral disturbance Qualified Code(s): F03.90 - Unspecified dementia without behavioral disturbance Syncope Qualifiers: Syncope type: unspecified Qualified Code(s): R55 - Syncope and collapse Disposition: Admitted As Inpatient Condition: Good Referrals: NONE,PCP [Non-Partnered Physician] - Forms: ED Satisfaction Letter Time of Disposition: 16:40 Fall HPI - General Chief Complaint: ED Fall Stated Complaint: Fall Time Seen by Provider: 01/01/19 13:06 Source: patient, EMS Mode of arrival: EMS Limitations: age, other (dementia at baseline) Nursing Notes Reviewed: Yes Vital Signs Reviewed: Yes - History of Present Illness HPI Narrative: 83-year-old female that [facility] from [facility] via EMS after an unwitnessed fall. Reportedly patient fell out of bed that was not at its lowest position and struck her head. Unknown loss of consciousness. Unknown time down. Patient states that she does not have any pain and no complaints at this time. She does not remember what happened and she does not remember why she is here. EMS was gone by the time I arrived to assess the patient. Report came from the nurse who took report from EMS. Patient reports that she normally can get up and walk around without difficulty. Patient is only alert and oriented to self, does not know what day it is and does not know where she is right now, thinks that she is at her [facility]. - Related Data Home Medications Medication Instructions Recorded Confirmed Docusate Sodium [Dok] 100 mg PO DAILY 08/29/16 01/01/19 Multivitamin [One Daily 1 tab PO DAILY 08/29/16 01/01/19 Multivitamin] [place]-3/Dha/Epa/Fish Oil [Fish Oil 1,000 mg PO DAILY 08/29/16 01/01/19 1,000 mg Softgel] Aspirin 81 mg PO DAILY 03/23/17 01/01/19 Cranberry 450 mg PO DAILY 05/01/17 01/01/19 Furosemide [Lasix] 40 mg PO DAILY 01/01/19 01/01/19 Lactobacillus Rhamnosus GG 1 each PO BID 01/01/19 01/01/19 [[facility] [employer]] Potassium Chloride [K-Tab ER] 20 meq PO DAILY 01/01/19 01/01/19 Allergies Allergy/AdvReac Type Severity Reaction Status Date / Time No Known Allergies Allergy Verified 08/28/16 08:35 Review of Systems: In addition to that documented in the HPI above, the additional ROS was obtained: Constitutional: Denies fevers or chills Eyes: Denies vision changes ENMT: Denies sore throat CV: Denies chest pain Resp: Denies SOB GI: Denies vomiting or diarrhea : Denies painful urination MSK: Denies recent trauma Skin: Denies new rashes Neuro: Denies new numbness or tingling or weakness Endocrine: Denies unexpected weight loss Heme: Denies bleeding disorders Fall PMH - Past Medical History Medical history: Reports: arthritis, DVT, hyperlipidemia, hypertension Surgical history: Reports: knee replacement Psychiatric history: Reports: other - Social History Smoking Status: Never smoker Alcohol use: Reports: none Drug use: Reports: none Physical Exam GENERAL: On stretcher with C-collar in place. SKIN: Warm and well perfused. multiple areas of ecchymosis consistent with blood thinner usage. HEAD: 2cm laceration present on right side of frontal bone, bleeding is currently controlled. Blood present in hair. Facial bones without deformities or tenderness. EYES: PERRL. No scleral icterus or conjunctival injection. Extraocular muscles intact without nystagmus or diplopia. No proptosis or enophthalmos. EARS: Normal appearing pinnae. No hemotympanum. NOSE: No discharge, tenderness, laxity. No nasal septal hematoma. MOUTH: No malocclusion or trismus. Dry mucus membranes without blood. Posterior pharynx without erythema or exudate. NECK: Trachea midline. No discolorations or edema. Neck immobilized in cervical collar. CV: Regular rate and rhythm, Normal s1 and s2. No murmurs, rubs, or gallops. PV: Radial pulses 2+ bilaterally and symmetric. Dorsalis pedis pulses 2+ bilaterally and symmetric. 2+ capillary refill. Roberto LE 1+ pitting edema. CHEST: No abrasions or ecchymosis. Chest symmetric with respirations. No chest wall tenderness. No crepitus. No step offs. Lungs are clear to auscultation bilaterally. No rales, rhonchi, wheezing or stridor. ABDOMEN: No ecchymosis or abrasions. Soft, nondistended, nontender. Bowel tones normoactive. No masses or organomegaly. BACK: No abrasions, skin openings, or ecchymosis. Spine without bony tenderness, no step offs. PELVIC: Pelvis stable, nontender to lateral compression and palpation of symphysis pubis. MSK: No gross deformities or discolorations or lesions. Tolerates full range of motion of extremities without tenderness. NEURO: Alert and oriented only to person. GCS 15. CN II-XII intact. Sensation grossly intact. Strength 5/5 in bilateral UE and LE. Finger to nose intact bilaterally. - General Limitations: altered mental status General appearance: alert Course Vital Signs Temperature 98.0 F 01/01/19 13:02 Pulse Rate 75 01/01/19 13:02 Respiratory Rate 14 01/01/19 13:02 Blood Pressure 122/58 01/01/19 13:02 O2 Sat by Pulse Oximetry 92 01/01/19 13:02 Temperature 98.0 F 01/01/19 13:02 Pulse Rate 82 01/01/19 16:03 Respiratory Rate 22 01/01/19 16:03 Blood Pressure 152/85 01/01/19 16:03 O2 Sat by Pulse Oximetry 94 01/01/19 16:03 Oxygen Delivery Oxygen Delivery Room Air Fall - [facility] Narrative Medical decision making narrative: 83-year-old female that arrives status post fall, unwitnessed, from her residential facility. We will obtain CT of her head and cervical spine. We will obtain an EKG due to the unknown loss of consciousness. We will obtain basic labs including CBC BMP troponin. Patient appears dry so she will given a liter of fluids. Suspect that if all of the workup is negative that she can be discharged back to her residential facility. Head CT was negative for acute intracranial abnormality and did show swelling of the right hemicranium. CT of cervical spine was without acute fracture. Patient's laceration was repaired by the medical student please see her note for procedure note. Patient's lab work revealed a hypokalemia which was repleted while she was in the department. Patient's urine did not show any signs cyst with infection. EKG did not show any signs that there was ischemia or significant change from her previous exam. Given that the patient may have had syncope and has hit her head and is unable to provide much history she may benefit from an overnight admission for observation. Patient was admitted to the hospitalist Dr. Walsh who agreed to accept the patient to his service. Patient remained stable while in the department. She did not seem to understand what was happening, she seemed to think that [facility] still at her [facility]. - Medical Records Medical records reviewed: Yes I reviewed the patient's medical records. - Lab Data Lab results reviewed: Yes I reviewed the patient's lab results. Result diagrams: 01/01/19 15:03 01/01/19 15:03 Lab Results 01/01/19 01/01/19 01/01/19 Range/Units 15:03 15:03 15:03 WBC 7.6 (4.3-11.1) K/mcL RBC 4.12 (3.82-4.97) M/mcL Hgb 12.1 (11.5-15.4) g/dL Hct 37.6 (35.3-44.9) % MCV 91.3 (83.0-100.0) fL MCH 29.4 (28.0-33.3) pg MCHC 32.2 (31.6-35.5) g/dL RDW 14.5 (11.5-14.5) % Plt Count 249 (140-400) K/mcL MPV 9.4 (9.4-12.4) fL Immature Gran % 0.3 (0-4) % Seg Neutrophils % 72.8 % Lymphocytes % 16.2 % Monocytes % 6.9 % Eosinophils % 3.4 % Basophils % 0.4 % Neutrophils # 5.5 (1.6-8.9) K/mcL Lymphocytes # 1.2 (0.6-4.6) K/mcL Monocytes # 0.5 (0.0-1.3) K/mcL Eosinophils # 0.3 (0.0-0.6) K/mcL Basophils # 0.0 (0.0-0.2) K/mcL PT 12.6 H (9.4-12.1) Seconds INR 1.1 APTT 31.7 (26.0-36.0) Seconds Sodium 139 (136-145) mEq/L Potassium 3.4 L (3.5-5.1) mEq/L Chloride 108 H (98-107) mEq/L Carbon Dioxide 23 (23-29) mEq/L BUN 18 (8-23) mg/dL Creatinine 0.85 (0.60-1.20) mg/dL Est GFR ( Amer) > 60 (> 60) Est GFR (Non-Af Amer) > 60 (> 60) BUN/Creatinine Ratio 21 (6-26) Glucose 91 (70-105) mg/dL POC Glucose (70-99) mg/dL Calculated Osmolality 289 (280-300) Calcium 9.2 (8.6-10.3) mg/dL Magnesium 1.8 (1.6-2.6) mg/dL Troponin I < 0.03 (< 0.04) ng/mL Urine Color (Yellow) Urine Clarity (Clear) Urine pH (5.0-8.0) pH Units Ur Specific [place] (1.010-1.025) Urine Protein (Neg-Trace) mg/dL Urine Glucose (UA) (Normal) mg/dL Urine Ketones (Negative) mg/dL Urine Blood (Negative) Urine Nitrite (Negative) Urine Bilirubin (Negative) Urine Urobilinogen (Normal) mg/dL Ur Leukocyte Esterase (Negative) Ur Culture Indicated? (NO) 01/01/19 01/01/19 Range/Units 15:11 15:30 WBC (4.3-11.1) K/mcL RBC (3.82-4.97) M/mcL Hgb (11.5-15.4) g/dL Hct (35.3-44.9) % MCV (83.0-100.0) fL MCH (28.0-33.3) pg MCHC (31.6-35.5) g/dL RDW (11.5-14.5) % Plt Count (140-400) K/mcL MPV (9.4-12.4) fL Immature Gran % (0-4) % Seg Neutrophils % % Lymphocytes % % Monocytes % % Eosinophils % % Basophils % % Neutrophils # (1.6-8.9) K/mcL Lymphocytes # (0.6-4.6) K/mcL Monocytes # (0.0-1.3) K/mcL Eosinophils # (0.0-0.6) K/mcL Basophils # (0.0-0.2) K/mcL PT (9.4-12.1) Seconds INR APTT (26.0-36.0) Seconds Sodium (136-145) mEq/L Potassium (3.5-5.1) mEq/L Chloride (98-107) mEq/L Carbon Dioxide (23-29) mEq/L BUN (8-23) mg/dL Creatinine (0.60-1.20) mg/dL Est GFR ( Amer) (> 60) Est GFR (Non-Af Amer) (> 60) BUN/Creatinine Ratio (6-26) Glucose (70-105) mg/dL POC Glucose 83 (70-99) mg/dL Calculated Osmolality (280-300) Calcium (8.6-10.3) mg/dL Magnesium (1.6-2.6) mg/dL Troponin I (< 0.04) ng/mL Urine Color Yellow (Yellow) Urine Clarity Clear (Clear) Urine pH 5.0 (5.0-8.0) pH Units Ur Specific [place] 1.007 L (1.010-1.025) Urine Protein Negative (Neg-Trace) mg/dL Urine Glucose (UA) Normal (Normal) mg/dL Urine Ketones Negative (Negative) mg/dL Urine Blood Negative (Negative) Urine Nitrite Negative (Negative) Urine Bilirubin Negative (Negative) Urine Urobilinogen Normal (Normal) mg/dL Ur Leukocyte Esterase Negative (Negative) Ur Culture Indicated? NO (NO) - Radiology Data Radiology results reviewed: Yes I reviewed the patient's radiology results. Cervical Spine CT 01/01/19 13:17 IMPRESSION: No acute abnormality of the cervical spine. Multilevel degenerative changes, similar to prior exam 05/11/2017. D/ / Corby Lawrence MD / Corby Lawrence MD Interpreting Provider: Corby Lawrence MD Head CT 01/01/19 13:17 IMPRESSION: No acute intracranial abnormality. Soft tissue swelling right frontal scalp. No acute bony abnormalities. Findings compatible with age related atrophy and likely chronic small vessel ischemic change. D/ / Corby Lawrence MD / Corby Lawrence MD Interpreting Provider: Corby Lawrence MD Chest X-Ray 01/01/19 14:04 IMPRESSION: Low lung volumes. No acute cardiopulmonary disease. D/ / Kory Hinojosa MD / Kory Hinojosa MD Interpreting Provider: Kory Hinojosa MD - EKG Data EKG attestation: Yes I reviewed and interpreted this EKG. EKG results narrative: HR 73, rhythm sinus, axis normal at -18. LA 185, QRS 102, QTc 452. No ST elevation or depression. LVH also seen on previous study dated 09/26/18.
[2019-01-01] MEDS ORDERED: 0.9 % Sodium Chloride 1,000 ML IVC ONE (13:52)
[2019-01-01] MEDS ORDERED: Lidocaine/EPI 1:100k 1% 30 ML VIAL INFILT ONE (14:13)
--- NOTE | 2019-01-01 14:55 | Emergency Department Note ---
Disposition Clinical Impression: Laceration Syncope Qualifiers: Syncope type: unspecified Qualified Code(s): R55 - Syncope and collapse Disposition: Admitted As Inpatient Condition: Fair Referrals: NONE,PCP [Non-Partnered Physician] - Forms: ED Satisfaction Letter Time of Disposition: 17:00 General Adult HPI - General Chief complaint: ED Fall Stated complaint: Fall Time Seen by Provider: 01/01/19 13:06 Source: patient, EMS Mode of arrival: EMS Limitations: age, other (dementia at baseline) - History of Present Illness HPI Narrative: This is just a procedure note; please see resident note for full HPI. Pain Scale: 3 - Related Data Home Medications Medication Instructions Recorded Confirmed Docusate Sodium [Dok] 100 mg PO DAILY 08/29/16 01/01/19 Multivitamin [One Daily 1 tab PO DAILY 08/29/16 01/01/19 Multivitamin] [place]-3/Dha/Epa/Fish Oil [Fish Oil 1,000 mg PO DAILY 08/29/16 01/01/19 1,000 mg Softgel] Aspirin 81 mg PO DAILY 03/23/17 01/01/19 Cranberry 450 mg PO DAILY 05/01/17 01/01/19 Furosemide [Lasix] 40 mg PO DAILY 01/01/19 01/01/19 Lactobacillus Rhamnosus GG 1 each PO BID 01/01/19 01/01/19 [[facility] [employer]] Potassium Chloride [K-Tab ER] 20 meq PO DAILY 01/01/19 01/01/19 Allergies Allergy/AdvReac Type Severity Reaction Status Date / Time No Known Allergies Allergy Verified 08/28/16 08:35 Past Medical History - Past Medical History Medical history: Reports: arthritis, DVT, hyperlipidemia, hypertension Surgical history: Reports: knee replacement Psychiatric history: Reports: other - Social History Smoking Status: Never smoker Smokeless Tobacco Status: No Alcohol use: Reports: none Drug use: Reports: none Physical Exam - General Limitations: age, other (dementia at baseline) General appearance: alert Course Vital Signs Temperature 98.0 F 01/01/19 13:02 Pulse Rate 75 01/01/19 13:02 Respiratory Rate 14 01/01/19 13:02 Blood Pressure 122/58 01/01/19 13:02 O2 Sat by Pulse Oximetry 92 01/01/19 13:02 Temperature 98.0 F 01/01/19 13:02 Pulse Rate 93 01/01/19 16:59 Respiratory Rate 18 01/01/19 16:59 Blood Pressure 152/85 01/01/19 16:59 O2 Sat by Pulse Oximetry 93 01/01/19 16:59 Oxygen Delivery Oxygen Delivery Room Air Procedures - Laceration Laceration 1 Site: face (Forehead) Side (If applicable): right Size (cm): 1.5 Description: linear, clean Depth: simple, single layer Local Anesthetic: lidocaine 1%, with epi Amount of Anesthesia Used (mL): 3 (cc) Pre-repair: irrigated extensively Skin layer closed with: nylon Size: 5-0 Number of sutures/gagan: 4 Technique: simple, interrupted Medical Decision Making - Lab Data Result diagrams: 01/01/19 15:03 01/01/19 15:03 Lab Results 01/01/19 01/01/19 01/01/19 Range/Units 15:03 15:03 15:03 WBC 7.6 (4.3-11.1) K/mcL RBC 4.12 (3.82-4.97) M/mcL Hgb 12.1 (11.5-15.4) g/dL Hct 37.6 (35.3-44.9) % MCV 91.3 (83.0-100.0) fL MCH 29.4 (28.0-33.3) pg MCHC 32.2 (31.6-35.5) g/dL RDW 14.5 (11.5-14.5) % Plt Count 249 (140-400) K/mcL MPV 9.4 (9.4-12.4) fL Immature Gran % 0.3 (0-4) % Seg Neutrophils % 72.8 % Lymphocytes % 16.2 % Monocytes % 6.9 % Eosinophils % 3.4 % Basophils % 0.4 % Neutrophils # 5.5 (1.6-8.9) K/mcL Lymphocytes # 1.2 (0.6-4.6) K/mcL Monocytes # 0.5 (0.0-1.3) K/mcL Eosinophils # 0.3 (0.0-0.6) K/mcL Basophils # 0.0 (0.0-0.2) K/mcL PT 12.6 H (9.4-12.1) Seconds INR 1.1 APTT 31.7 (26.0-36.0) Seconds Sodium 139 (136-145) mEq/L Potassium 3.4 L (3.5-5.1) mEq/L Chloride 108 H (98-107) mEq/L Carbon Dioxide 23 (23-29) mEq/L BUN 18 (8-23) mg/dL Creatinine 0.85 (0.60-1.20) mg/dL Est GFR ( Amer) > 60 (> 60) Est GFR (Non-Af Amer) > 60 (> 60) BUN/Creatinine Ratio 21 (6-26) Glucose 91 (70-105) mg/dL POC Glucose (70-99) mg/dL Calculated Osmolality 289 (280-300) Calcium 9.2 (8.6-10.3) mg/dL Magnesium 1.8 (1.6-2.6) mg/dL Troponin I < 0.03 (< 0.04) ng/mL Urine Color (Yellow) Urine Clarity (Clear) Urine pH (5.0-8.0) pH Units Ur Specific [place] (1.010-1.025) Urine Protein (Neg-Trace) mg/dL Urine Glucose (UA) (Normal) mg/dL Urine Ketones (Negative) mg/dL Urine Blood (Negative) Urine Nitrite (Negative) Urine Bilirubin (Negative) Urine Urobilinogen (Normal) mg/dL Ur Leukocyte Esterase (Negative) Ur Culture Indicated? (NO) 01/01/19 01/01/19 Range/Units 15:11 15:30 WBC (4.3-11.1) K/mcL RBC (3.82-4.97) M/mcL Hgb (11.5-15.4) g/dL Hct (35.3-44.9) % MCV (83.0-100.0) fL MCH (28.0-33.3) pg MCHC (31.6-35.5) g/dL RDW (11.5-14.5) % Plt Count (140-400) K/mcL MPV (9.4-12.4) fL Immature Gran % (0-4) % Seg Neutrophils % % Lymphocytes % % Monocytes % % Eosinophils % % Basophils % % Neutrophils # (1.6-8.9) K/mcL Lymphocytes # (0.6-4.6) K/mcL Monocytes # (0.0-1.3) K/mcL Eosinophils # (0.0-0.6) K/mcL Basophils # (0.0-0.2) K/mcL PT (9.4-12.1) Seconds INR APTT (26.0-36.0) Seconds Sodium (136-145) mEq/L Potassium (3.5-5.1) mEq/L Chloride (98-107) mEq/L Carbon Dioxide (23-29) mEq/L BUN (8-23) mg/dL Creatinine (0.60-1.20) mg/dL Est GFR ( Amer) (> 60) Est GFR (Non-Af Amer) (> 60) BUN/Creatinine Ratio (6-26) Glucose (70-105) mg/dL POC Glucose 83 (70-99) mg/dL Calculated Osmolality (280-300) Calcium (8.6-10.3) mg/dL Magnesium (1.6-2.6) mg/dL Troponin I (< 0.04) ng/mL Urine Color Yellow (Yellow) Urine Clarity Clear (Clear) Urine pH 5.0 (5.0-8.0) pH Units Ur Specific [place] 1.007 L (1.010-1.025) Urine Protein Negative (Neg-Trace) mg/dL Urine Glucose (UA) Normal (Normal) mg/dL Urine Ketones Negative (Negative) mg/dL Urine Blood Negative (Negative) Urine Nitrite Negative (Negative) Urine Bilirubin Negative (Negative) Urine Urobilinogen Normal (Normal) mg/dL Ur Leukocyte Esterase Negative (Negative) Ur Culture Indicated? NO (NO)
[2019-01-01 15:15] LABS: Basophils % 0.4 %; Eosinophils # 0.3 K/mcL (0.0-0.6); Eosinophils % 3.4 %; Hematocrit 37.6 % (35.3-44.9); Hemoglobin 12.1 g/dL (11.5-15.4); Immature Granulocytes % 0.3 % (0-4); Lymphocytes # 1.2 K/mcL (0.6-4.6); Lymphocytes % 16.2 %; Mean Corpuscular HGB Conc 32.2 g/dL (31.6-35.5); Mean Corpuscular Hemoglobin 29.4 pg (28.0-33.3); Mean Corpuscular Volume 91.3 fL (83.0-100.0); Mean Platelet Volume 9.4 fL (9.4-12.4); Monocytes # 0.5 K/mcL (0.0-1.3); Monocytes % 6.9 %; Neutrophils # 5.5 K/mcL (1.6-8.9); Platelet Count 249 K/mcL (140-400); Red Blood Count 4.12 M/mcL (3.82-4.97); Red Cell Distribution Width 14.5 % (11.5-14.5); Segmented Neutrophils % 72.8 %; White Blood Count 7.6 K/mcL (4.3-11.1)
[2019-01-01 15:25] LABS: INR 1.1; Prothrombin Time 12.6 Seconds (9.4-12.1)
[2019-01-01 15:27] LABS: Activated Partial Thrombo Time 31.7 Seconds (26.0-36.0)
[2019-01-01 15:41] LABS: BUN/Creatinine Ratio 21 (6-26); Blood Urea Nitrogen 18 mg/dL (8-23); Calcium 9.2 mg/dL (8.6-10.3); Carbon Dioxide 23 mEq/L (23-29); Chloride 108 mEq/L (98-107); Glucose 91 mg/dL (70-105); Osmolality,Calculated 289 (280-300); Potassium 3.4 mEq/L (3.5-5.1); Sodium 139 mEq/L (136-145); eGFR For African Americans > 60 (> 60); eGFR For Non-African Americans > 60 (> 60)
[2019-01-01 15:42] LABS: Troponin I < 0.03 ng/mL (< 0.04)
[2019-01-01 15:44] LABS: Bilirubin,Urine Negative (Negative); Blood,Urine Negative (Negative); Clarity,Urine Clear (Clear); Color,Urine Yellow (Yellow); Glucose,Urine (UA) Normal (Normal); Ketones,Urine Negative (Negative); Leukocyte Esterase,Urine Negative (Negative); Nitrite,Urine Negative (Negative); Protein,Urine Negative (Neg-Trace); Specific Gravity,Urine 1.007 (1.010-1.025); Urobilinogen,Urine Normal (Normal)
[2019-01-01] MEDS ORDERED: Potassium Chloride 40 MEQ, Lidocaine 1% 2 ML in D5% in Water 500 ML IVPB ONE (16:00)
[2019-01-01 16:19] LABS: Magnesium 1.8 mg/dL (1.6-2.6)
--- NOTE | 2019-01-01 16:54 | Emergency Department Note ---
Disposition Clinical Impression: Laceration, Hypokalemia Dementia Qualifiers: Dementia type: unspecified type Dementia behavioral disturbance: without behavioral disturbance Qualified Code(s): F03.90 - Unspecified dementia without behavioral disturbance Syncope Qualifiers: Syncope type: unspecified Qualified Code(s): R55 - Syncope and collapse Disposition: Admitted As Inpatient Condition: Fair Referrals: NONE,PCP [Non-Partnered Physician] - Forms: ED Satisfaction Letter Time of Disposition: 16:40 General Adult HPI - General Chief complaint: ED Fall Stated complaint: Fall Time Seen by Provider: 01/01/19 13:06 Source: patient, EMS Mode of arrival: EMS Limitations: age, other (dementia at baseline) Nursing Notes Reviewed: Yes Vital Signs Reviewed: Yes - History of Present Illness Pain Scale: 0 - Related Data Home Medications Medication Instructions Recorded Confirmed Docusate Sodium [Dok] 100 mg PO DAILY 08/29/16 01/01/19 Multivitamin [One Daily 1 tab PO DAILY 08/29/16 01/01/19 Multivitamin] [place]-3/Dha/Epa/Fish Oil [Fish Oil 1,000 mg PO DAILY 08/29/16 01/01/19 1,000 mg Softgel] Aspirin 81 mg PO DAILY 03/23/17 01/01/19 Cranberry 450 mg PO DAILY 05/01/17 01/01/19 Furosemide [Lasix] 40 mg PO DAILY 01/01/19 01/01/19 Lactobacillus Rhamnosus GG 1 each PO BID 01/01/19 01/01/19 [[facility] [employer]] Potassium Chloride [K-Tab ER] 20 meq PO DAILY 01/01/19 01/01/19 Allergies Allergy/AdvReac Type Severity Reaction Status Date / Time No Known Allergies Allergy Verified 08/28/16 08:35 Past Medical History - Past Medical History Medical history: Reports: arthritis, DVT, hyperlipidemia, hypertension Surgical history: Reports: knee replacement Psychiatric history: Reports: other - Social History Smoking Status: Never smoker Smokeless Tobacco Status: No Alcohol use: Reports: none Drug use: Reports: none Physical Exam - General Limitations: age, other (dementia at baseline) General appearance: alert Course Vital Signs Temperature 98.0 F 01/01/19 13:02 Pulse Rate 75 01/01/19 13:02 Respiratory Rate 14 01/01/19 13:02 Blood Pressure 122/58 01/01/19 13:02 O2 Sat by Pulse Oximetry 92 01/01/19 13:02 Temperature 98.0 F 01/01/19 13:02 Pulse Rate 82 01/01/19 16:03 Respiratory Rate 22 01/01/19 16:03 Blood Pressure 152/85 01/01/19 16:03 O2 Sat by Pulse Oximetry 94 01/01/19 16:03 Oxygen Delivery Oxygen Delivery Room Air Medical Decision Making - Lab Data Result diagrams: 01/01/19 15:03 01/01/19 15:03 Lab Results 01/01/19 01/01/19 01/01/19 Range/Units 15:03 15:03 15:03 WBC 7.6 (4.3-11.1) K/mcL RBC 4.12 (3.82-4.97) M/mcL Hgb 12.1 (11.5-15.4) g/dL Hct 37.6 (35.3-44.9) % MCV 91.3 (83.0-100.0) fL MCH 29.4 (28.0-33.3) pg MCHC 32.2 (31.6-35.5) g/dL RDW 14.5 (11.5-14.5) % Plt Count 249 (140-400) K/mcL MPV 9.4 (9.4-12.4) fL Immature Gran % 0.3 (0-4) % Seg Neutrophils % 72.8 % Lymphocytes % 16.2 % Monocytes % 6.9 % Eosinophils % 3.4 % Basophils % 0.4 % Neutrophils # 5.5 (1.6-8.9) K/mcL Lymphocytes # 1.2 (0.6-4.6) K/mcL Monocytes # 0.5 (0.0-1.3) K/mcL Eosinophils # 0.3 (0.0-0.6) K/mcL Basophils # 0.0 (0.0-0.2) K/mcL PT 12.6 H (9.4-12.1) Seconds INR 1.1 APTT 31.7 (26.0-36.0) Seconds Sodium 139 (136-145) mEq/L Potassium 3.4 L (3.5-5.1) mEq/L Chloride 108 H (98-107) mEq/L Carbon Dioxide 23 (23-29) mEq/L BUN 18 (8-23) mg/dL Creatinine 0.85 (0.60-1.20) mg/dL Est GFR ( Amer) > 60 (> 60) Est GFR (Non-Af Amer) > 60 (> 60) BUN/Creatinine Ratio 21 (6-26) Glucose 91 (70-105) mg/dL POC Glucose (70-99) mg/dL Calculated Osmolality 289 (280-300) Calcium 9.2 (8.6-10.3) mg/dL Magnesium 1.8 (1.6-2.6) mg/dL Troponin I < 0.03 (< 0.04) ng/mL Urine Color (Yellow) Urine Clarity (Clear) Urine pH (5.0-8.0) pH Units Ur Specific [place] (1.010-1.025) Urine Protein (Neg-Trace) mg/dL Urine Glucose (UA) (Normal) mg/dL Urine Ketones (Negative) mg/dL Urine Blood (Negative) Urine Nitrite (Negative) Urine Bilirubin (Negative) Urine Urobilinogen (Normal) mg/dL Ur Leukocyte Esterase (Negative) Ur Culture Indicated? (NO) 01/01/19 01/01/19 Range/Units 15:11 15:30 WBC (4.3-11.1) K/mcL RBC (3.82-4.97) M/mcL Hgb (11.5-15.4) g/dL Hct (35.3-44.9) % MCV (83.0-100.0) fL MCH (28.0-33.3) pg MCHC (31.6-35.5) g/dL RDW (11.5-14.5) % Plt Count (140-400) K/mcL MPV (9.4-12.4) fL Immature Gran % (0-4) % Seg Neutrophils % % Lymphocytes % % Monocytes % % Eosinophils % % Basophils % % Neutrophils # (1.6-8.9) K/mcL Lymphocytes # (0.6-4.6) K/mcL Monocytes # (0.0-1.3) K/mcL Eosinophils # (0.0-0.6) K/mcL Basophils # (0.0-0.2) K/mcL PT (9.4-12.1) Seconds INR APTT (26.0-36.0) Seconds Sodium (136-145) mEq/L Potassium (3.5-5.1) mEq/L Chloride (98-107) mEq/L Carbon Dioxide (23-29) mEq/L BUN (8-23) mg/dL Creatinine (0.60-1.20) mg/dL Est GFR ( Amer) (> 60) Est GFR (Non-Af Amer) (> 60) BUN/Creatinine Ratio (6-26) Glucose (70-105) mg/dL POC Glucose 83 (70-99) mg/dL Calculated Osmolality (280-300) Calcium (8.6-10.3) mg/dL Magnesium (1.6-2.6) mg/dL Troponin I (< 0.04) ng/mL Urine Color Yellow (Yellow) Urine Clarity Clear (Clear) Urine pH 5.0 (5.0-8.0) pH Units Ur Specific [place] 1.007 L (1.010-1.025) Urine Protein Negative (Neg-Trace) mg/dL Urine Glucose (UA) Normal (Normal) mg/dL Urine Ketones Negative (Negative) mg/dL Urine Blood Negative (Negative) Urine Nitrite Negative (Negative) Urine Bilirubin Negative (Negative) Urine Urobilinogen Normal (Normal) mg/dL Ur Leukocyte Esterase Negative (Negative) Ur Culture Indicated? NO (NO) Attestation Statement - Attestation Attestation: I examined this patient and my medical decision-making was reviewed with the Resident Physician. I agree with the documented findings, disposition and vik tment plan as described except to the extent set forth below. Patient presents to the ED with a chief complaint of a fall. The patient states she passed out. There is no further history available as EMS of left arm evaluation. The patient does have a documented history of dementia. She is complaining of pain in her head. On exam she is awake and alert. Pleasantly confused. Patient still in her correction. Moves all extremities. Allows logrolling of her legs. No tenderness of the cervical thoracic or lumbar spines. She did have a laceration to the right frontal area of her forehead. Plan. Patient a cardiac workup that was unremarkable. Head and neck CTs were unremarkable as well. Wound was sutured by medical student with my supervision. Patient is admitted for further monitoring secondary to her possible syncopal episode. EKG was reviewed with the resident. Patient was removed from c-collar. She has full range of motion of her neck without pain. Cervical Spine CT 01/01/19 13:17 IMPRESSION: No acute abnormality of the cervical spine. Multilevel degenerative changes, similar to prior exam 05/11/2017. D/ / Corby Lawrence MD / Corby Lawrence MD Interpreting Provider: Corby Lawrence MD Head CT 01/01/19 13:17 IMPRESSION: No acute intracranial abnormality. Soft tissue swelling right frontal scalp. No acute bony abnormalities. Findings compatible with age related atrophy and likely chronic small vessel ischemic change. D/ / Corby Lawrence MD / Corby Lawrence MD Interpreting Provider: Corby Lawrence MD Chest X-Ray 01/01/19 14:04 IMPRESSION: Low lung volumes. No acute cardiopulmonary disease. D/ / Kory Hinojosa MD / Kory Hinojosa MD Interpreting Provider: Kory Hinojosa MD
[2019-01-01] MEDS ORDERED: Ondansetron 4 MG/2 ML VIAL IVP PRN (17:17)
[2019-01-01] MEDS ORDERED: Naloxone 0.4 MG/ML INJ IVP PRN (17:17)
--- NOTE | 2019-01-01 17:28 | Internal Med History&Physical ---
Date of Encounter: 01/01/19 Time of Encounter: 17:55 Internal Medicine - H&P: HPI Chief complaint: syncope and fall Admitted From: Long-term Nursing Facility Plans for Post Hospital Care: Transfer [facility] History of present illness: Ms. Humphrey is a 83 year old female with PMH of advanced dementia (AAO x 0 with hallucinations at baseline), hypertension, HLD who is sent to the ER from the [place] s/p syncope and fall. Due to patient's advance dementia, information was obtained from the nursing reports and medical records. No family available at bedside. As per records, pt sustained a fall sustaining a laceration on her forehead. It is unclear if patient had a syncopal episode sustaining this fall vs. 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 Pt's work up was unremarkable with mild hypokalemia in the ER. Pt's forehead laceration was dressed and sutured by the ER physician. Pt is currently at her baseline mental status. She is pleasantly confused and denies any headache at this time. Ten point ROS is negative except as listed above As per [place] documentations, patient's code status is listed as DNR/DNI Past Med Surg Social Fam HX - Past Medical History Medical history: arthritis, DVT, hyperlipidemia, hypertension Additional medical history: UTI Psychiatric history: other - Past Surgical History Surgical History: knee replacement Additional surgical history: tendon repair. - Social History Smoking Status: Never smoker Smokeless Tobacco Status: No Alcohol use: none Drug use: none - Family History Father Adopted: No Living Status: Hx Family Cardiac Disorders: Yes (SD) Hx Family Respiratory Disorders: No Hx Family Cancer: No Hx Family GI Disorders: No Hx Family Endocrine Disorder: No Hx Family Neuromuscular Disorders: No Hx Family Neurologic Disorders: No Hx Family HEENT Disorders: No Hx Family Autoimmune Disorders: No Mother Adopted: No Living Status: Hx Family Cardiac Disorders: Yes Hx Family Respiratory Disorders: No Hx Family Cancer: No Hx Family GI Disorders: No Hx Family Endocrine Disorder: Yes (Diabetes) Hx Family Neuromuscular Disorders: No Hx Family Neurologic Disorders: No Hx Family HEENT Disorders: No Hx Family Autoimmune Disorders: No Internal Medicine - H&P: Meds Docusate Sodium [Dok] 100 mg PO DAILY 08/29/16 [History] Multivitamin [One Daily Multivitamin] 1 tab PO DAILY 08/29/16 [History] [place]-3/Dha/Epa/Fish Oil [Fish Oil 1,000 mg Softgel] 1,000 mg PO DAILY 08/29/16 [History] Aspirin 81 mg PO DAILY 03/23/17 [History] Cranberry 450 mg PO DAILY 05/01/17 [History] Furosemide [Lasix] 40 mg PO DAILY 01/01/19 [History] Lactobacillus Rhamnosus GG [[facility] Templafy & ProZyme] 1 each PO BID 01/01/19 [History] Potassium Chloride [K-Tab ER] 20 meq PO DAILY 01/01/19 [History] Allergy/AdvReac Type Severity Reaction Status Date / Time No Known Allergies Allergy Verified 08/28/16 08:35 All Systems PM: A 10-system review of systems was performed and is negative for pertinent f indings except as documented above in the HPI. - Constitutional Vitals: Temp Pulse Resp BP Pulse Ox 98.0 F 93 18 152/85 93 01/01/19 13:02 01/01/19 16:59 01/01/19 16:59 01/01/19 16:59 01/01/19 16:59 Exam: General: No acute distress, AAO x 0, pleasantly confused, morbidly obese HEENT: EOMI, PERRLA, NC/AT, no scleral icterus, skin laceration of right forehead Respiratory: Clear to auscultate bilaterally, no wheezing, no rales Cardiovascular: Regular, Rate, Rhythm, No murmurs GI: Soft, Non tender, non distended, normal bowel sounds Ext: No edema, no tenderness, positive pulses Neuro: AAO x 0, no focal deficits, CN II-XII grossly intact Rest of the clinical exam is noncontributory Internal Med - H&P Results - Labs CBC & Chem 7: 01/01/19 15:03 01/01/19 15:03 Labs: Short CBC 01/01/19 Range/Units 15:03 WBC 7.6 (4.3-11.1) K/mcL Hgb 12.1 (11.5-15.4) g/dL Hct 37.6 (35.3-44.9) % Plt Count 249 (140-400) K/mcL Neutrophils # 5.5 (1.6-8.9) K/mcL BMP 01/01/19 15:03 Sodium 139 Potassium 3.4 L Chloride 108 H Carbon Dioxide 23 BUN 18 Creatinine 0.85 Glucose 91 Calcium 9.2 Cardiac Enzymes 01/01/19 Range/Units 15:03 Troponin I < 0.03 (< 0.04) ng/mL Urine 01/01/19 Range/Units 15:30 Urine Color Yellow (Yellow) Urine Clarity Clear (Clear) Urine pH 5.0 (5.0-8.0) pH Units Ur Specific [place] 1.007 L (1.010-1.025) Urine Protein Negative (Neg-Trace) mg/dL Urine Glucose (UA) Normal (Normal) mg/dL - Impressions ITS Impressions Cervical Spine CT 01/01/19 13:17 IMPRESSION: No acute abnormality of the cervical spine. Multilevel degenerative changes, similar to prior exam 05/11/2017. D/ / Corby Lawrence MD / Corby Lawrence MD Interpreting Provider: Corby Lawrence MD Head CT 01/01/19 13:17 IMPRESSION: No acute intracranial abnormality. Soft tissue swelling right frontal scalp. No acute bony abnormalities. Findings compatible with age related atrophy and likely chronic small vessel ischemic change. D/ / Corby Lawrence MD / Corby Lawrence MD Interpreting Provider: Corby Lawrence MD Chest X-Ray 01/01/19 14:04 IMPRESSION: Low lung volumes. No acute cardiopulmonary disease. D/ / Kory Hinojosa MD / Kory Hinojosa MD Interpreting Provider: Kory Hinojosa MD - Summary of Assessment and Plan Summary of Assessment and Plan: Ms. Humphrey is a 83 year old female with PMH of advanced dementia (AAO x 0 with hallucinations at baseline), hypertension, HLD who is sent to the ER from the [place] s/p syncope and fall. Assessment/Plan: 1. Syncope and Fall questionable syncopal episode CT head reviewed, no acute intracranial abnormality reported, soft tissue swelling right on frontal scalp. f/u 2D echo PT/OT eval f/u orthostatic vitals wound care for the scalp laceration will maintain fall precautions 2. Hypokalemia K supplemented in the ER continue to monitor electrolytes and replace as needed 3. HTN BP within acceptable range continue home meds closely monitor BP DVT ppx: SCDs LOS < 2 midnights - Time Spent With Patient Total time spent is greater than 50% in coordination of care (as documented) at patient's floor/unit and/or counseling patient:
[2019-01-01] MEDS: Lactobacillus 1 EACH CAP.SPRINK PO SCH (21:51)
[2019-01-02 05:48] LABS: Basophils % 0.5 %; Eosinophils # 0.3 K/mcL (0.0-0.6); Eosinophils % 5.3 %; Hematocrit 39.1 % (35.3-44.9); Hemoglobin 12.6 g/dL (11.5-15.4); Immature Granulocytes % 0.4 % (0-4); Lymphocytes # 1.4 K/mcL (0.6-4.6); Lymphocytes % 25.4 %; Mean Corpuscular HGB Conc 32.2 g/dL (31.6-35.5); Mean Corpuscular Hemoglobin 29.6 pg (28.0-33.3); Mean Platelet Volume 9.6 fL (9.4-12.4); Monocytes # 0.5 K/mcL (0.0-1.3); Neutrophils # 3.4 K/mcL (1.6-8.9); Platelet Count 266 K/mcL (140-400); Red Blood Count 4.25 M/mcL (3.82-4.97); Red Cell Distribution Width 14.4 % (11.5-14.5); Segmented Neutrophils % 60.4 %; White Blood Count 5.7 K/mcL (4.3-11.1)
[2019-01-02 06:11] LABS: BUN/Creatinine Ratio 19 (6-26); Blood Urea Nitrogen 14 mg/dL (8-23); Calcium 9.6 mg/dL (8.6-10.3); Carbon Dioxide 27 mEq/L (23-29); Chloride 104 mEq/L (98-107); Chol/HDL Ratio 4.2 (0-4.9); Cholesterol 174 mg/dL (< 200); Glucose 85 mg/dL (70-105); HDL Cholesterol 41 mg/dL (40-59); LDL Cholesterol,Calculated 111 mg/dL (0-99); Magnesium 1.9 mg/dL (1.6-2.6); Osmolality,Calculated 284 (280-300); Phosphorous 2.6 mg/dL (2.7-4.5); Potassium 3.9 mEq/L (3.5-5.1); Sodium 137 mEq/L (136-145); Triglycerides 108 mg/dL (< 150); eGFR For African Americans > 60 (> 60); eGFR For Non-African Americans > 60 (> 60)
[2019-01-02] MEDS: CRANBERRY 450 MG PO SCH (10:10)
[2019-01-02] MEDS: Multivit/Ca/Min/Fe/FA 1 TAB TABLET PO SCH (10:10)
[2019-01-02] MEDS: (Omega-3/Dha/Epa/Fish Oil [Fish Oil 1,000 Mg Softgel]) PO SCH (10:10)
[2019-01-02] MEDS: Aspirin 81 MG TAB.CHEW PO SCH (10:10)
[2019-01-02] MEDS: Furosemide 40 MG TABLET PO SCH (10:10)
[2019-01-02] MEDS: Lactobacillus 1 EACH CAP.SPRINK PO SCH ×2 (10:10→21:25)
--- NOTE | 2019-01-02 14:55 | Internal Med Progress Note ---
Hospitalist Progress Note - Encounter Date of Encounter: 01/02/19 Time of Encounter: 14:52 - Subjective Interval History: Patient seen and examined earlier today. 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 requested for discharge back to [facility] facility - Exam Vitals: Temp Pulse Resp BP Pulse Ox 97.9 F 73 14 139/70 99 01/02/19 12:21 01/02/19 12:21 01/02/19 12:21 01/02/19 12:21 01/02/19 12:21 Exam: General: No acute distress, AAO x 0, pleasantly confused, morbidly obese HEENT: EOMI, PERRLA, NC/AT, no scleral icterus, skin laceration of right forehead Respiratory: Clear to auscultate bilaterally, no wheezing, no rales Cardiovascular: Regular, Rate, Rhythm, No murmurs GI: Soft, Non tender, non distended, normal bowel sounds Ext: No edema, no tenderness, positive pulses, no calf tenderness Neuro: AAO x 0, no focal deficits Rest of the clinical exam is noncontributory - Summary of Assessment and Plan Summary of Assessment and Plan: Ms. 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 Assessment/Plan: 1. Syncope and Fall questionable syncopal episode CT head reviewed, no acute intracranial abnormality reported, soft tissue swelling right on frontal scalp. 2D echo pending PT/OT eval pending awaiting orthostatic vitals wound care for the scalp laceration will maintain fall precautions 2. Hypokalemia resolved continue to monitor electrolytes and replace as needed 3. HTN BP within acceptable range continue home meds closely monitor BP DVT ppx: SCDs Care plan discussed with RN - Time Spent with Patient Total time spent is greater than 50% in coordination of care (as documented) at patient's floor/unit and/or counseling patient: Internal Medicine: Result - Labs CBC & Chem 7: 01/02/19 05:00 01/02/19 05:00 Labs: Short CBC 01/01/19 01/02/19 Range/Units 15:03 05:00 WBC 7.6 5.7 (4.3-11.1) K/mcL Hgb 12.1 12.6 (11.5-15.4) g/dL Hct 37.6 39.1 (35.3-44.9) % Plt Count 249 266 (140-400) K/mcL Neutrophils # 5.5 3.4 (1.6-8.9) K/mcL BMP 01/01/19 01/02/19 15:03 05:00 Sodium 139 137 Potassium 3.4 L 3.9 Chloride 108 H 104 Carbon Dioxide 23 27 BUN 18 14 Creatinine 0.85 0.74 Glucose 91 85 Calcium 9.2 9.6 Cardiac Enzymes 01/01/19 Range/Units 15:03 Troponin I < 0.03 (< 0.04) ng/mL Urine 01/01/19 Range/Units 15:30 Urine Color Yellow (Yellow) Urine Clarity Clear (Clear) Urine pH 5.0 (5.0-8.0) pH Units Ur Specific [place] 1.007 L (1.010-1.025) Urine Protein Negative (Neg-Trace) mg/dL Urine Glucose (UA) Normal (Normal) mg/dL - ABG Interpretation ABG results: PT/INR, D-dimer PT 12.6 Seconds (9.4-12.1) H 01/01/19 15:03 Consult Discharge Plan - Plan Referrals: Carlitos Martinez MD [Primary Care Provider] -
[2019-01-03] MEDS: Furosemide 40 MG TABLET PO SCH (08:19)
[2019-01-03] MEDS: Lactobacillus 1 EACH CAP.SPRINK PO SCH (08:19)
[2019-01-03] MEDS: Multivit/Ca/Min/Fe/FA 1 TAB TABLET PO SCH (08:19)
[2019-01-03] MEDS: (Omega-3/Dha/Epa/Fish Oil [Fish Oil 1,000 Mg Softgel]) PO SCH (08:20)
[2019-01-03] MEDS: Aspirin 81 MG TAB.CHEW PO SCH (08:20)
[2019-01-03] MEDS: CRANBERRY 450 MG PO SCH (08:20)
[2019-01-03 11:44] VITALS: BP 110/87
--- NOTE | 2019-01-03 14:22 | Physician Discharge Referral ---
ExtendedCare Referral Info Transfer To: [facility] Provider in Charge after Transfer: PCP - Diagnosis (1) Syncope Priority: Primary Status: Acute (2) Fall Priority: Primary Status: Acute (3) Hypokalemia Priority: Secondary Status: Resolved (4) Hypertension Priority: Secondary Status: Chronic - Transfer Medications Home Medications: Docusate Sodium [Dok] 100 mg PO DAILY 08/29/16 [History] Multivitamin [One Daily Multivitamin] 1 tab PO DAILY 08/29/16 [History] [place]-3/Dha/Epa/Fish Oil [Fish Oil 1,000 mg Softgel] 1,000 mg PO DAILY 08/29/16 [History] Aspirin 81 mg PO DAILY 03/23/17 [History] Cranberry 450 mg PO DAILY 05/01/17 [History] Furosemide [Lasix] 40 mg PO DAILY 01/01/19 [History] Lactobacillus Rhamnosus GG [[employer]] 1 each PO BID 01/01/19 [History] Potassium Chloride [K-Tab ER] 20 meq PO DAILY 01/01/19 [History] Ibuprofen 800 mg PO Q8H PRN 01/02/19 [History] Allergies/Adverse Reactions: Allergy/AdvReac Type Severity Reaction Status Date / Time No Known Allergies Allergy Verified 01/02/19 11:10 - Respiratory Orders Smoking Cessation: Smoking cessation has been advised. For more information, call the [place] Tobacco Quit Line at 1-178-YRKENOW. CERTIFICATION: I certify that the transfer of the above named patient to an Extended Care Facility is necessary for the continuing treatment of the diagnosis listed. The above information is true and accurate reflection of patient's current condition. Confidential - Redisclosure prohibited without a patient's written consent.
--- NOTE | 2019-01-03 14:26 | Discharge Summary ---
- NOTES TO OUTPATIENT PROVIDER Notes to Outpatient Provider: Admitted s/p fall sustaining a right forehead laceration, unclear etiology of fall -mechanical vs. syncope. Cardiac and neuro workup negative throughout the course of hospitalization Orders not resulted at time of discharge: Pending orders 01/01/19 14:04 EKG [ECG 12 lead ECG] [ECG] Stat Date of Encounter: 01/03/19 Time of Encounter: 14:22 - Discharge Diagnosis (1) Syncope Priority: Primary Status: Acute Qualifiers: Syncope type: unspecified Qualified Code(s): R55 - Syncope and collapse (2) Fall Priority: Primary Status: Acute Qualifiers: Encounter type: subsequent encounter Qualified Code(s): W19.XXXD - Unspecified fall, subsequent encounter (3) Hypokalemia Priority: Secondary Status: Resolved (4) Hypertension Priority: Secondary Status: Chronic Qualifiers: Hypertension type: essential hypertension Qualified Code(s): I10 - Essential (primary) hypertension Hospital course: Ms. 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 Pt was noted to have a right forehead laceration due to the fall. It was unclear if the fall was mechanical vs. syncopal. Pt's neuro and cardiac workup was negative. She was seen and examined earlier today. Mental status at baseline. Pt is medically stable for discharge to [facility] [place]. Discharge discussed with: patient, nurse, social work, case management - Time Spent with Patient Total time spent providing and/or coordinating discharge services: 35minutes Time spent: Greater than 30 minutes - Discharge Medications Prescriptions: Continued [place]-3/Dha/Epa/Fish Oil [Fish Oil 1,000 mg Softgel] 1,000 mg PO DAILY Multivitamin [One Daily Multivitamin] 1 tab PO DAILY Docusate Sodium [Dok] 100 mg PO DAILY Aspirin 81 mg PO DAILY Cranberry 450 mg PO DAILY Furosemide [Lasix] 40 mg PO DAILY Lactobacillus Rhamnosus GG [ChartIT[employer]] 1 each PO BID Potassium Chloride [K-Tab ER] 20 meq PO DAILY Ibuprofen 800 mg PO Q8H PRN PRN Reason: Pain Home Medications: Docusate Sodium [Dok] 100 mg PO DAILY 08/29/16 [History] Multivitamin [One Daily Multivitamin] 1 tab PO DAILY 08/29/16 [History] [place]-3/Dha/Epa/Fish Oil [Fish Oil 1,000 mg Softgel] 1,000 mg PO DAILY 08/29/16 [History] Aspirin 81 mg PO DAILY 03/23/17 [History] Cranberry 450 mg PO DAILY 05/01/17 [History] Furosemide [Lasix] 40 mg PO DAILY 01/01/19 [History] Lactobacillus Rhamnosus GG [[employer]] 1 each PO BID 01/01/19 [History] Potassium Chloride [K-Tab ER] 20 meq PO DAILY 01/01/19 [History] Ibuprofen 800 mg PO Q8H PRN 01/02/19 [History] Allergies/Adverse Reactions: Allergy/AdvReac Type Severity Reaction Status Date / Time No Known Allergies Allergy Verified 01/02/19 11:10 Date of admission: 01/01/19 18:36 Primary care physician: Carlitos Martinez MD Consults: 01/01/19 22:20 Consult to Locomotive Operator [CONS] Routine Reason for SW Consult: D/C planning [facility] Discharging clinician: Heidy Elena Anticipated date of discharge: 01/03/19 - Constitutional Vitals: Temp Pulse Resp BP Pulse Ox 98.5 F 60 15 110/87 98 01/03/19 11:43 01/03/19 11:43 01/03/19 11:43 01/03/19 11:43 01/03/19 11:43 Exam: General: No acute distress, AAO x 0, pleasantly confused, morbidly obese HEENT: EOMI, PERRLA, NC/AT, no scleral icterus, skin laceration on right forehead-sutures intact Respiratory: Clear to auscultate bilaterally, no wheezing, no rales Cardiovascular: Regular, Rate, Rhythm, No murmurs GI: Soft, Non tender, non distended, normal bowel sounds Ext: No edema, no tenderness, positive pulses, no calf tenderness Neuro: AAO x 0, no focal deficits Rest of the clinical exam is noncontributory - Patient Status Disposition: Transfer LTC - Discharge Instructions Follow Up With: Carlitos Martinez MD [Primary Care Provider] - Additional Instructions: 1. Please follow up with your PCP within five days after your discharge from the hospital. 2. Please continue all your home meds as prescribed by your PCP. - Diet and Activity Activity: increase activity as tolerated Diet: advance to your usual diet
--- NOTE | 2019-01-04 22:51 | Electrocardiograph Report ---
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
== END 2019-01-03 15:15 ==
LOC: 3ANU 12:57 → EMEROOARM 12:57 → SUATTDRO 18:36 → 3ANU 20:04
PROVIDERS: ADMIT Internal Medicine; ATTEND Internal Medicine